=== PATIENT | male | born 1935 | race Caucasian/White ===

== ENCOUNTER 2021-04-26 14:35 | Inpatient (IN) | payer MEDICARE, OTHER, SELFPAY ==
[2021-04-26] VITALS (7 sets, daily range): BP systolic 129–176; BP diastolic 75–88; PULSE 55–68; RESP 16–18; TEMP 35.6–36.7; O2SAT 92–98; BMI 28.5
--- NOTE | 2021-04-26 14:54 | ECG_ITS ---
[facility] Test Date: 2021-04-26 Pat Name: Diogenes Mustafa Department: Room: Gender: Male Solutions Consultant: : [id number] Requested By: Familia Maxwell Order Number: [id number] Melchor MD: Kaitlin Zambrano M.D. Measurements Intervals [place] Rate: 57 P: 61 PA: 221 QRS: 14 QRSD: 168 T: 146 QT: 467 QTc: 456 Interpretive Statements SINUS BRADYCARDIA WITH FIRST DEGREE AV BLOCK LEFT BUNDLE BRANCH BLOCK [120+ ms QRS DURATION, 80+ ms Q/S IN V1/V2, 85+ ms R IN I/aVL/V5/V6] No previous ECG available for comparison Electronically Signed On 04-26-2021 19:15:25 CDT by Kaitlin Zambrano M.D. [id number]
--- NOTE | 2021-04-26 14:54 | CT_ITS ---
WS: [id number] CT HEAD TECHNIQUE: Noncontrast CT of the head obtained from the skullbase to the vertex. CLINICAL INFORMATION: Symptoms of Acute Stroke COMPARISON: None. DLP: 1082.[address] scans at [facility] use at least one of these dose optimization techniques: automated e xposure control; mA and/or kV adjustment per patient size (includes targeted exams where dose is matc hed to clinical indication); or iterative reconstruction. FINDINGS: No evidence of intracranial hemorrhage or mass effect. Ventricular system and basal cisterns are aponte nt. Mild small vessel changes with mild parenchymal volume loss. No extra-axial fluid collections. No evidence of mass or mass effect. 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 This can be followed up with MRI without and with g adolinium enhancement. This measures approximately 12 x 10 mm. Mild mucosal thickening in the paranas al sinuses. Mastoid air cells are well aerated. Sebaceous cysts right occipital scalp. Intracranial v ascular calcification. CT/CT head wo con* [id number] IMPRESSION: 1. No evidence of intracranial hemorrhage or mass effect. 2. Mild small vessel changes moderate parenchymal volume loss. 3. 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 Thi s can be followed up with MRI without and with gadolinium enhancement. This jessica sures approximately 12 x 10 mm 4. Mucosal thickening in the paranasal sinuses. 5. Otherwise no acute intracranial findings. Notified Familia Silveira DO at 04/26/2021 3:28 PM.
[2021-04-26 15:10] LABS: Basophils % 0.3 %; Eosinophils # 0.1 10^3/uL (0.0-0.8); Eosinophils % 0.9 %; Hematocrit 43.7 % (42.0-52.0); Hemoglobin 14.4 g/dL (11.7-16.6); Lymphocytes # 2.9 10^3/uL (0.8-4.8); Lymphocytes % 33.1 %; Mean Platelet Volume 10.9 fL (7.4-10.4); Monocytes # 0.3 10^3/uL (0.2-0.9); Monocytes % 3.9 %; Neutrophils # 5.42 10^3/uL (1.8-7.7); Neutrophils % 61.6 %; Nucleated Red Blood Cells % 0 %; Platelet Count 171 10^3/cmm (130-400); Red Blood Count 4.65 10^6/uL (4.1-5.3); Red Cell Distribution Width 13.1 % (12.1-15.1); White Blood Count 8.8 10^3/uL (4.0-10.0)
--- NOTE | 2021-04-26 15:15 | PC.PHAR ---
pt states he takes care of his own medications-pt states he stop taking metformin a long time ago states he didnt like the results from it ext med history shows last filled 07/15/20 90d/s
[2021-04-26 15:17] LABS: INR 0.98 (0.8-1.2)
[2021-04-26 15:18] LABS: Partial Thromboplastin Time 29.2 SECONDS (23.9-36.7)
[2021-04-26 15:27] LABS: Alanine Aminotransferase 9 U/L (0-41); Albumin Level 3.7 g/dL (3.5-5.2); Alkaline Phosphatase 81 IU/L (40-130); Anion Gap 14.5 (5-19); Aspartate Amino Transferase 15 U/L (0-40); Blood Urea Nitrogen 18 mg/dL (8-23); Calcium 9.2 mg/dL (8.5-10.5); Carbon Dioxide 24 mmol/L (22-29); Chloride 101 mmol/L (98-107); Globulin 3.6 g/dL (1.3-4.6); Glucose 188 mg/dL (65-115); Osmolality Calculated 287 mOsm/kg (285-295); Potassium 4.5 mmol/L (3.5-5.1); Sodium 135 mmol/L (136-145); Total Bilirubin 0.6 mg/dL (0.15-1.2); Total Protein 7.3 g/dL (6.6-8.7)
[2021-04-26] MEDS: promethazine 25 mg/mL SDV 1 mL IM (15:35)
--- NOTE | 2021-04-26 16:01 | ED_ITS ---
HPI - Neuro Symptoms/Deficit General: Chief Complaint: Neuro Symptoms/Deficit Stated Complaint: FREQUENT FALLS, DIZZINESS Time Seen by Provider: 04/26/21 14:36 History of Present Illness: HPI Narrative: 86-year-old male presents emergency room states of the last several years he had multiple falls today says increased weakness nausea. Had multiple falls over the last few years. Today has increased weakness with nausea dizziness whenever he moves his head or when he sits. He is also noticed some dark urine this past week. Is not had any flank pain no dysuria urgency or frequency denies fever sweats or chills. There is no focal neurologic deficits noted. Onset (ago): hour(s) Severity: moderate Quality: weak Relieving factors: none Exacerbating factors: none On Anticoagulants: No Associated symptoms: Deny chest pain, cough, diaphoresis, fevers/chills, headache(s), anorexia, malaise, nausea, seizures, short of breath, syncope, tingling, vertigo, vomiting or weakness Treatments Prior to Arrival: none Review of Systems Const: Denies: malaise or diaphoresis ENMT: Denies: throat pain, ear or mastoid pain, nasal discharge or nasal congestion Card: Denies: chest pain or syncope Resp: Denies: dyspnea, productive cough or non-productive cough GI: Denies: nausea or vomiting : Denies: flank pain, dysuria, urinary frequency or urinary urgency Skin/Breast: Denies: rash or pruritus Neuro: Denies: headache(s) or vertigo PFSH ED PFSH: Medical History BPH (benign prostatic hyperplasia) HTN (hypertension) Varicose veins of both lower extremities Surgical History History of left knee replacement Family History Other Hyperlipidemia Social History Alcohol intake: never Substance/Drug Use: never Housing: House NIH stroke score NIHSS: Level Of Consciousness - 1a: 0 Level Of Consciousness Questions - 1b: Both Correct Level Of Consciousness Commands - 1c: Both Correct Best Gaze - 2: Normal Visual Oneill - 3: No Visual Loss Facial Palsy - 4: Normal Motor Arm Right - 5: No Drift Motor Arm Left - 5: No Drift Motor Leg Right - 6: No Drift Motor Leg Left - 6: No Drift Limb Ataxia - 7: Absent Sensory - 8: Normal Best Language - 9: No Aphasia Dysarthia - 10: Normal Extinction And Inattention - 11: 0 Score: Total Score: 0 Physical Exam Const: COMMON NORMALS: no acute distress GENERAL APPEARANCE: cooperative and comfortable ORIENTATION/CONSCIOUSNESS: Yes awake, Yes oriented to person, Yes oriented to place and Yes oriented to time HENMT: COMMON NORMALS: normocephalic, atraumatic, hearing grossly normal bilaterally and external ears normal HEAD & SCALP: normocephalic and atraumatic EXTERNAL EAR: Yes external ears normal Neck/C-Spine: COMMON NORMALS: no JVD Resp: COMMON NORMALS: normal respiratory effort, No retractions, No use of accessory muscles and clear to auscultation bilaterally AUSCULTATION: clear to auscultation bilaterally Cardio: COMMON NORMALS: no JVD, regular rate, regular rhythm and No murmurs present (Cardio) RATE: regular rate RHYTHM: regular rhythm GI: COMMON NORMALS: Soft to palpation and No hepatosplenomegaly present AUSCULTATION: Yes normoactive bowel sounds PALPATION: Yes Soft to palpation, No Tenderness to palpation present (GI), No Guarding due to palpation present (GI) and Yes No hepatosplenomegaly present Extremity: COMMON NORMALS: normal to inspection, capillary refill normal, no clubbing, cyanosis or edema, no calf tenderness and no pedal edema Neuro: SENSORIUM/ORIENTATION: Yes oriented to person, Yes oriented to place and Yes oriented to time Skin: COMMON NORMALS: no rashes or lesions noted GENERAL SKIN EXAM: no rashes or lesions noted Course Vital Signs: Vital signs: Vital Signs Temperature 98.1 F 04/27/21 04:00 Pulse Rate 60 04/27/21 04:00 Respiratory Rate 20 H 04/27/21 04:00 Blood Pressure 119/57 04/27/21 04:00 Pulse Oximetry 91 04/27/21 04:00 MDM - Neuro Symptoms/Deficit MDM Narrative: Medical decision making narrative: Initially patient started feeling better we elected letting him go home but when he sat up he got profoundly dizzy again. Discussed with Dr. Ash. Consider doing a CTA of the head neck after discussion, he would rather wait and just get an MRI. There is an incidental finding of a meningioma but otherwise nothing acute he does have some painless hematuria we will plan to treat that as an outpatient with antibiotics and then follow-up with Dr. Green for further evaluation and order outpatient imaging however since he is staying we went ahead and got the CT here it shows a partially calcified obstruction of the right ureter consult with Dr. Green. He has been given Rocephin initially and his urine has been cultured as well. Dr. Ash plans to do an MRI, we discussed potential for vertebrobasilar artery stenosis. Lab Data: Labs: Lab Results 04/26/21 04/26/21 04/26/21 14:41 14:41 14:41 WBC 8.8 10^3/uL 10^3/ uL (4.0-10.0) RBC 4.65 10^6/uL 10^6 /uL (4.1-5.3) Hgb 14.4 g/dL g/dL (11.7-16.6) Hct 43.7 % % (42.0-52.0) MCV 94.0 fl fl (80-94) MCH 31.0 pg pg (28.0-34.0) MCHC 33.0 g/dL g/dL (30.0-36.0) RDW 13.1 % % (12.1-15.1) Plt Count 171 10^3/cmm 10^3 /cmm (130-400) MPV 10.9 fL H fL (7.4-10.4) Neut % (Auto) 61.6 % % Lymph % (Auto) 33.1 % % Mcduffie % (Auto) 3.9 % % Eos % (Auto) 0.9 % % Baso % (Auto) 0.3 % % Neut # (Auto) 5.42 10^3/uL 10^3 /uL (1.8-7.7) Lymph # (Auto) 2.9 10^3/uL 10^3/ uL (0.8-4.8) [place]duffie # (Auto) 0.3 10^3/uL 10^3/ uL (0.2-0.9) Eos # (Auto) 0.1 10^3/uL 10^3/ uL (0.0-0.8) Baso # (Auto) 0.0 10^3/uL 10^3/ uL (0.0-0.1) Nucleated RBC % (a uto) 0 % % Nucleated RBCs # 0.0 /100WBC /100W BC PT 13.20 SECONDS SEC ONDS (12.1-14.9) INR 0.98 (0.8-1.2) APTT 29.2 SECONDS SECO NDS (23.9-36.7) Sodium 135 mmol/L L mmol /L (136-145) Potassium 4.5 mmol/L mmol/L (3.5-5.1) Chloride 101 mmol/L mmol/L (98-107) Carbon Dioxide 24 mmol/L mmol/L (22-29) Anion Gap 14.5 (5-19) BUN 18 mg/dL mg/dL (8-23) Creatinine 1.0 mg/dL mg/dL (0.7-1.2) GFR Calculation Not Reportable Glucose 188 mg/dL H mg/dL (65-115) Calculated Osmolal ity 287 mOsm/kg mOsm/ kg (285-295) Calcium 9.2 mg/dL mg/dL (8.5-10.5) Total Bilirubin 0.6 mg/dL mg/dL (0.15-1.2) AST 15 U/L U/L (0-40) ALT 9 U/L U/L (0-41) Alkaline Phosphata se 81 IU/L IU/L (40-130) Creatine Kinase Total Protein 7.3 g/dL g/dL (6.6-8.7) Albumin 3.7 g/dL g/dL (3.5-5.2) Globulin 3.6 g/dL g/dL (1.3-4.6) Urine Color Urine Appearance Urine pH Ur Specific Gravit y Urine Protein Urine Glucose (UA) Urine Ketones Urine Blood Urine Nitrate Urine Bilirubin Urine Urobilinogen Ur Leukocyte Radha ase Urine RBC Urine WBC Ur Squamous Epith Cells Amorphous Sediment Urine Bacteria 04/26/21 04/26/21 14:41 16:17 WBC RBC Hgb Hct MCV MCH MCHC RDW Plt Count MPV Neut % (Auto) Lymph % (Auto) [place]duff[place] % (Auto) Eos % (Auto) Baso % (Auto) Neut # (Auto) Lymph # (Auto) Mcduffie # (Auto) Eos # (Auto) Baso # (Auto) Nucleated RBC % (a uto) Nucleated RBCs # PT INR APTT Sodium Potassium Chloride Carbon Dioxide Anion Gap BUN Creatinine GFR Calculation Glucose Calculated Osmolal ity Calcium Total Bilirubin AST ALT Alkaline Phosphata se Creatine Kinase 45 U/L U/L (39-308) Total Protein Albumin Globulin Urine Color Brown (Yellow) Urine Appearance Bloody A (CLEAR) Urine pH Not Reportable Ur Specific Gravit y Not Reportable Urine Protein Not Reportable Urine Glucose (UA) Not Reportable Urine Ketones Not Reportable Urine Blood Not Reportable Urine Nitrate Not Reportable Urine Bilirubin Not Reportable Urine Urobilinogen Not Reportable Ur Leukocyte Radha ase Not Reportable Urine RBC Too numerous to c nt /hpf H /hpf (0-2) Urine WBC 10-15 /hpf H /hpf (0-5) Ur Squamous Epith Cells None /hpf /hpf (0-5) Amorphous Sediment Not Reportable Urine Bacteria 1+ /hpf H /hpf (NONE) Discharge Plan Discharge Patient Disposition: Home Clinical Impression: Benign paroxysmal positional vertigo, Meningioma Condition: Stable Discharge Orders: Discharge ED (Routine); Ordered 04/26/21 Ordered By: Familia Silveira Coding Level of Care Code ED 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
[2021-04-26 16:26] LABS: Creatine Phosphokinase 45 U/L (39-308)
[2021-04-26 16:39] LABS: Urine Appearance Bloody (CLEAR)
--- NOTE | 2021-04-26 16:39 | PC.NURSE ---
ERP instructs this RN to ambulate pt. While assisting pt from a laying to a sitting position slowly, pt had increased dizziness. ERP made aware.
[2021-04-26 16:41] LABS: Add Urine Microscopic? YES; RBC Urine TOO NUMEROUS TO CNT /hpf (0-2); Urine Color Brown (Yellow)
[2021-04-26 16:42] LABS: Bacteria Urine 1+ /hpf
[2021-04-26 16:43] LABS: Add Urine Culture? Yes
[2021-04-26] MEDS: LORazepam 2 mg/mL INJ 1 mL 1 MG IVP (16:55)
--- NOTE | 2021-04-26 17:01 | CTR_ITS ---
PROCEDURE INFORMATION: Exam: CT Abdomen And Pelvis Without Contrast Exam date and time: 04/26/2021 5:01 PM Age: 86 years old Clinical indication: Other: Hematuria TECHNIQUE: Imaging protocol: Computed tomography of the abdomen and pelvis without contrast. Radiation optimization: All CT scans at this facility use at least one of these dose optimization techniques: automated exposure control; mA and/or kV adjustment per patient size (includes targeted exams where dose is matched to clinical indication); or iterative reconstruction. COMPARISON: No relevant prior studies available. RADIATION DOSE METRICS: Total DLP (mGy-cm): 2137.91 FINDINGS: Lungs: Emphysematous changes. Bibasilar atelectasis versus minimal infiltrate. Heart: Coronary artery atherosclerotic calcifications. Liver: Normal. No mass. Gallbladder and bile ducts: Cholelithiasis. Pancreas: Normal. No ductal dilation. Spleen: Normal. No splenomegaly. Adrenal glands: Left adrenal 11 mm low-density nodule likely reflecting a benign adenoma. Kidneys and ureters: Moderate right hydronephrosis and hydroureter of the proximal to mid ureter with a possible partially calcified calculus in the right mid ureter measuring 8.8 mm, best seen series 08/10/2011. A CT with contrast could further evaluate this. Stomach and bowel: Diverticulosis without diverticulitis. Appendix: No evidence of appendicitis. Intraperitoneal space: Unremarkable. No free air. No significant fluid collection. Vasculature: Unremarkable. No abdominal aortic aneurysm. Lymph nodes: Unremarkable. No enlarged lymph nodes. Urinary bladder: Urinary bladder wall thickening suggestive of a cystitis. Reproductive: Unremarkable as visualized. Bones/joints: Unremarkable. No acute fracture. Soft tissues: Unremarkable. CT/CT kidney stone [id number] IMPRESSION: 1. Moderate right hydronephrosis and hydroureter of the proximal to mid ureter with a possible partially calcified calculus in the right mid ureter measuring 8.8 mm, best seen series 08/10/2011. A CT with contrast could further evaluate this. 2. Urinary bladder wall thickening suggestive of a cystitis, please correlate clinically. 3. Diverticulosis without diverticulitis. 4. Coronary artery atherosclerotic calcifications. 5. Emphysematous changes. 6. Bibasilar atelectasis versus minimal infiltrate. 7. Cholelithiasis. 8. Left adrenal 11 mm low-density nodule likely reflecting a benign adenoma. COMMENTS: Consistent with the [employer]'s Incidental Findings Committee white paper (J Am Lea Radiol 2017): For any incidental adrenal lesion greater than 1 cm but less than 4 cm classified in this report as benign, likely benign, or containing fat (including classification as an adenoma or myelolipoma), no follow-up imaging is recommended per consensus recommendations based on imaging criteria. Further lab evaluation could be pursued if warranted based on clinical findings. Radiation Dose CTDIVOL = (mGy): DLP = 2137.91 (mGy-cm)
--- NOTE | 2021-04-26 17:19 | PM.HP ---
Providers/Chief Complaint Primary Care Provider: Manish Morejon DO Chief Complaint: FREQUENT FALLS, DIZZINESS History of Present Illness Diogenes Mustafa is a 86 year old male with no significant past medical history other than hypertension presented today with chief complaint of unstable gait. is at the bedside who is stating that for last 3 days Mr. Mustafa has been very unsteady on his feet especially when he changes his position(stand up from supine). No recent strokelike symptoms, fever shortness of breath or chest pain. Today he felt well standing up from supine position. That prompted his visit to the ER. In the ER he was diagnosed with vertigo, CT head showed meningioma, straight cath was done to obtain urine which revealed bloody urine, UA consistent with hematuria, patient is afebrile, bradycardia noted on telemetry, blood pressure stable, Family at the bedside, normal CBC and BMP, Dr. Green has been consulted, no active signs of sepsis Patient received 1 mg of Ativan which made him confused. At the time of my evaluation he was awake and alert oriented x3 GCS 15 no neurological deficits Asked nurse to place Ramos catheter Continue ceftriaxone 1 g daily, urine culture pending CT/CT kidney stone [id number] IMPRESSION: 1. Moderate right hydronephrosis and hydroureter of the proximal to mid ureter with a possible partially calcified calculus in the right mid ureter measuring 8.8 mm, best seen series 08/10/2011. A CT with contrast could further evaluate this. 2. Urinary bladder wall thickening suggestive of a cystitis, please correlate clinically. 3. Diverticulosis without diverticulitis. 4. Coronary artery atherosclerotic calcifications. 5. Emphysematous changes. 6. Bibasilar atelectasis versus minimal infiltrate. 7. Cholelithiasis. 8. Left adrenal 11 mm low-density nodule likely reflecting a benign adenoma. Review of Systems Const: Denies: fever(s) Eyes: Denies: change in vision ENMT: Denies: throat pain Card: Denies: chest pain Resp: Denies: dyspnea GI: Denies: abdominal pain : Denies: flank pain Musc: Denies: neck pain Skin/Breast: Denies: rash Neuro: Denies: headache(s) Psych: Denies: anxiety Endo: Denies: polyuria [place]/Lymph: Denies: easy bruising All/Imm: Denies: urticaria Medications/Allergies Home Medications Medication Instructions Recorded Confirmed Last Taken Type atorvastatin 10 mg PO BEDTIME 04/26/21 04/26/21 04/25/21 History ibuprofen 800 mg PO BEDTIME 04/26/21 04/26/21 04/25/21 History meclizine 25 mg PO QID PRN #20 tab 04/26/21 Unknown Rx metoprolol succinate 25 mg PO BEDTIME 04/26/21 04/26/21 04/25/21 History tamsulosin 0.4 mg PO BEDTIME 04/26/21 04/26/21 04/25/21 History Allergies Allergy/AdvReac Type Severity Reaction Status Date / Time No Known Allergies Allergy Unverified 04/26/21 15:15 PFSH Acute PFSH: Medical History BPH (benign prostatic hyperplasia) HTN (hypertension) Varicose veins of both lower extremities Surgical History History of left knee replacement Family History Other Hyperlipidemia Social History Alcohol intake: never Substance/Drug Use: never Housing: House Vitals/I&O/Wt Last Vital Signs Temp 98.1 F 04/26/21 14:37 Pulse 55 L 04/26/21 16:41 Resp 17 04/26/21 16:41 BP 154/78 04/26/21 16:41 Pulse Ox 93 04/26/21 16:41 Weight last 48 hrs Weight 92.986 kg Physical Exam Narrative: EXAM NARRATIVE: Elderly male who was laying comfortably in his bed saturating well on 1 L nasal cannula Does not use oxygen at home Bilateral breath sound without adventitious rhonchi or crackles S1, S2 sinus bradycardia heart rate 58 Abdomen soft Lower extremity no signs of venous stasis dermatitis, cellulitis Patient is complaining of left ankle pain however no active hyperemia or tenderness to palpation Awake alert oriented x3 GCS 15 EOMI, PERRLA No asterixis NIH 0 BPPV Data : 04/26/21 14:41 04/26/21 14:41 A&P Assessment and plan (1) Benign paroxysmal positional vertigo: Status: Acute (2) Meningioma: Status: Acute (3) Gross hematuria: Status: Acute (4) Hydronephrosis of right kidney: Status: Acute Additional A&P Information Gross hematuria Secondary to ureteral stone Has history of BPH 8.8 mm, hydronephrosis Normal creatinine Patient is not septic We will follow with urine cultures continue ceftriaxone Dr. Green consulted We will keep him n.p.o. overnight in case any intervention is required in the morning Ramos catheter placement Check CPK BPPV Most likely the cause of unsteady gait, check B12 and TSH Start meclizine will request vestibular rehab/physical therapy We will give him steroids as well Meningioma: No active neurological deficits We will request MRI, will need MRI screening as patient has left knee replacement history that was done in 1959 Full code Cardiac diet DVT prophylaxis SCDs, anticoagulation contraindicated Attestations Medical Necessity Statement*: Anticipating discharge within 48 hours Time Spent in Patient Care: Greater than 35 minutes Coding Level of Care Code 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
[2021-04-26] MEDS: cefTRIAXone 1,000 MG in sodium chloride 0.9% (plus) 50 ML 100 MG IV (17:33)
[2021-04-26 20:56] LABS: Glucose Point of Care 157 mg/dL (70-110)
[2021-04-26] MEDS: tamsulosin 0.4 mg Capsule PO (22:07)
[2021-04-26] MEDS: metoprolol succinate ER (24 HR) 25 mg Tablet PO (22:07)
[2021-04-26] MEDS: finasteride 5 mg Tablet PO (22:07)
[2021-04-26] MEDS: atorvastatin 40 mg Tablet 20 MG PO (22:07)
[2021-04-27] VITALS (8 sets, daily range): BP systolic 108–157; BP diastolic 57–79; PULSE 58–90; RESP 17–20; TEMP 36.4–37; O2SAT 85–98
[2021-04-27 05:07] LABS: Basophils % 0.1 %; Hematocrit 44.7 % (42.0-52.0); Hemoglobin 14.2 g/dL (11.7-16.6); Lymphocytes # 0.9 10^3/uL (0.8-4.8); Lymphocytes % 8.6 %; Mean Corpuscular HGB Conc 31.8 g/dL (30.0-36.0); Mean Corpuscular Hemoglobin 30.5 pg (28.0-34.0); Mean Corpuscular Volume 96.1 fl (80-94); Monocytes # 0.2 10^3/uL (0.2-0.9); Monocytes % 1.6 %; Neutrophils # 9.77 10^3/uL (1.8-7.7); Neutrophils % 89.5 %; Nucleated Red Blood Cells % 0 %; Platelet Count 146 10^3/cmm (130-400); Red Blood Count 4.65 10^6/uL (4.1-5.3); Red Cell Distribution Width 13.2 % (12.1-15.1); White Blood Count 10.9 10^3/uL (4.0-10.0)
[2021-04-27 05:41] LABS: Alanine Aminotransferase 9 U/L (0-41); Albumin Level 3.4 g/dL (3.5-5.2); Alkaline Phosphatase 77 IU/L (40-130); Aspartate Amino Transferase 19 U/L (0-40); Blood Urea Nitrogen 22 mg/dL (8-23); Calcium 9.2 mg/dL (8.5-10.5); Carbon Dioxide 25 mmol/L (22-29); Chloride 100 mmol/L (98-107); Globulin 3.6 g/dL (1.3-4.6); Glucose 203 mg/dL (65-115); Osmolality Calculated 289 mOsm/kg (285-295); Sodium 135 mmol/L (136-145); Total Bilirubin 0.7 mg/dL (0.15-1.2)
[2021-04-27 07:07] LABS: Glucose Point of Care 202 mg/dL (70-110)
[2021-04-27] MEDS: cefTRIAXone 1,000 MG in sodium chloride 0.9% (plus) 50 ML 100 MG IV (08:59)
--- NOTE | 2021-04-27 10:41 | PC.CHAP ---
Pastoral Care Encounter/Spiritual Assessment Type of Contact [] Declined linen room attendant visit [] Patient/Family/Request visit [] Outpatient visit [] Follow-up visit [] Physician referral [] Code/Alert [x] Routine visit [] Staff referral [] Actively dying [] Patient sleeping [] Family support [] [] Out of room [] Palliative care [] [] Receiving care in room [] Pre-surgical visit [] Trauma [] Long length of stay [] ICU visit [] Other: Relational/Emotional Strength [x] Patient feels connected with others/family/visitors/staff [] Distress [] Loneliness/isolation [] Abandonment Spirituality of Patient [x] Person of Natalie [x] Attends Oriental Orthodox of their Natalie [] Believes in Prayer [] Reads Bible or Jain materials [] There are Spiritual issues to be addressed Social Security Benefits Interviewer Interventions [] Prayer [x] Active listening [x] Non-anxious presence [x] Spiritual/emotional support [] Crisis/trauma care [] Spiritual counseling [] Bereavement support [] Provided bereavement packet [] Provided Bible/devotional materials [] Provided toy/stuffed animal, coloring book to patient or family member [] Provided Communion [] Anointing/[place] [] Salvation [x] Completed spiritual assessment [] Other: Impact on Illness or Injury [] Angry [] Fearful [] Anxious [] Often cries [] Exhaustion [] Unable to work [] Unable to attend jehovah's witness [] Unable to walk/stand [] Unable to read [] Unable to drive [] Unable to eat/drink [] Unable to sleep [] Unable to be with family [] Patient intubated [] Other: Summary Pt stated he is not feeling better since his arrival yesterday. Doctors still trying to determine what is wrong. was present in room. They have been 58 years. Have children and a grand child. One grand child is . Both seemed a little hesitant to talk with linen room attendant so linen room attendant did not press. Taoism natalie. Time spent with patient 5 m
[2021-04-27 12:01] LABS: Glucose Point of Care 232 mg/dL (70-110)
--- NOTE | 2021-04-27 14:07 | PM.PN ---
Subjective Subjective: Interval history: No overnight events, creatinine 1.3, afebrile, leukocytosis 10.9, Dr. Green planning for cystoscopy on Please let him eat today Urine bag with gross hematuria Hemoglobin stable at 14.2, hemodynamically stable, bradycardia noted, held metoprolol this morning Patient has history of left bundle branch block and bradycardia is endorsing that he has been experiencing gross hematuria for last 1 month and it was really the fall which happened yesterday which prompted his visit to the ER He will go for MRI head at 2:30 PM given 4 mg of IV morphine Vitals/I&O/Wt Last Vital Signs Temp 98.6 F 04/27/21 11:56 Pulse 58 L 04/27/21 11:56 Resp 17 04/27/21 11:56 BP 108/69 04/27/21 11:56 Pulse Ox 98 04/27/21 11:56 04/26/21 04/27/21 04/27/21 22:59 06:59 14:59 Intake Total 240 / 240 530 / 530 Output Total 375 / 375 Balance -135 / -135 530 / 530 Weight last 48 hrs Weight 92.986 kg Weight 92.986 kg Physical Exam Narrative: EXAM NARRATIVE: Patient was laying comfortably in his bed and awake alert oriented x3 No neurological deficits No active focal deficits noted on neurological exam EOMI, PERRLA S1, S2 bradycardia No murmur appreciated Abdomen soft Urine bag with gross hematuria Legs without edema Soft abdomen Urinary Catheter Management^: Ramos: Cath Placed During This Visit: yes Urinary Catheter Date of Insertion: 04/26/21 Urinary Catheter Time of Insertion: 21:00 Data : 04/27/21 05:00 04/27/21 05:00 Micro: Microbiology 04/26/21 16:17 Urine Culture - Preliminary Urine,Clean Catch A&P Assessment and plan (1) Gross hematuria: Status: Acute (2) Hydronephrosis of right kidney: Status: Acute (3) Benign paroxysmal positional vertigo: Status: Acute (4) Meningioma: Status: Acute (5) DANIEL (acute kidney injury): Status: Acute Additional A&P Information BPPV: Currently on meclizine, continue steroids, patient does endorse history of sinusitis before worsening of his symptoms, will follow up with PT evaluation Leukocytosis most likely secondary to steroid use no active signs of sepsis, he has been afebrile Gross hematuria with DANIEL with post renal obstruction with hydronephrosis, Dr. Green planning for cystoscopy on for gross hematuria evaluation, continue ceftriaxone, patient has been afebrile, Meningioma: We will follow up with MRI results today Acute hypoxic respiratory failure as per the respiratory therapist his O2 saturation was in low 80s on room air, at the time of evaluation he was saturating well on 2 L nasal cannula, he was awake and alert no signs of confusion, most likely this is related to hypoventilation, will request D-dimer and chest x-ray, in case of worsening of confusion will request ABG not indicated at this time Recurrent falls: I do suspect this is related to tamsulosin, which has been exacerbated with underlying sinusitis/bppv, B12 pending Full code Consistent carb diet DVT prophylaxis: SCDs Attestations Medical Necessity Statement*: Continue medical management Time Spent in Patient Care: 16 - 35 minutes Coding Level of Care Code Acute Cloth Cutter for Chg Fwd Diagnoses Gross hematuria R31.0 Hydronephrosis of right kidney N13.30 Benign paroxysmal positional vertigo H81.10 Meningioma D32.9 DANIEL (acute kidney injury) N17.9
[2021-04-27] MEDS: morphine 4 mg/mL SDV 1 mL IVP (14:14)
--- NOTE | 2021-04-27 14:20 | MR_ITS ---
WS: [id number] MRI HEAD WITH CONTRAST TECHNIQUE: Sagittal T1, T2 axial, T2 axial FLAIR, axial susceptibility weighted imaging, axial diffus ion weighted images, and coronal T2 images were obtained. Pre and post-T1 axial and post T1 coronal i mages. ADC and FSPGR images. CLINICAL INFORMATION: meningioma COMPARISON: CT head April 26, 2021 FINDINGS: No evidence of restricted diffusion to suggest acute ischemia. Ventricular system and basal cisterns are patent. Moderate small vessel changes with moderate parenchymal volume loss. Normal posterior fos sa. Normal vascular flow voids at the skull base. No extra-axial fluid collections. No evidence of ma ss or mass effect. Mild mucosal thickening in the ethmoid air cells. Mucosal thickening right mastoid air cells. Left mastoid air cells are well aerated. No hemosiderin on susceptibly weighted images. Enhancing well-circumscribed lesion along the anterior sella at the planum sphenoidale eccentric to t he right. This measures approximately 1.3 x 1.4 x 0.6 cm AP by transverse by craniocaudal. Slight con tact RIGHT aspect of the optic chiasm and prechiasmatic optic nerve with slight impingement. Recommen d correlation for right visual symptoms. Normal left optic chiasm and prechiasmatic optic nerve. Find ings most compatible with meningioma. Meningioma extends to the right cavernous sinus with partial en casement of the right cavernous carotid artery. Normal Meckel's cave. Normal intrasellar pituitary ti ssue. Incidental sebaceous cyst in the right occipital scalp. Incidental venous angioma left cerebellum. MR/MR head wo/w con [id number] IMPRESSION: 1. No evidence of restricted diffusion to suggest acute ischemia. 2. Enhancing meningioma along the anterior sella at the planum sphenoidale ecc entric to the right. Slight impingement on the right aspect of the optic chiasm and prechiasmatic optic nerve. Recommend Correlation for visual symptoms. 3. Meningioma measures approximately 1.3 x 1.4 x 0.6 cm AP by transverse by cr aniocaudal. This extends to involve the right cavernous sinus and slightly ext ends into the right aspect of the sella. Recommend correlation with pituitary f unction studies. 4. Meckel's cave is normal in appearance. 5. Moderate small vessel changes with moderate parenchymal volume loss. 6. No hemosiderin on susceptibly weighted images. 7. No other significant findings.
[2021-04-27 16:32] LABS: Glucose Point of Care 257 mg/dL (70-110)
[2021-04-27 19:05] LABS: Glucose Point of Care 277 mg/dL (70-110)
--- NOTE | 2021-04-27 19:19 | PC.NURSE ---
DR VISIT Dr Green in talking with pt and family
--- NOTE | 2021-04-27 19:31 | PM.CONSULT ---
Providers/Reason For Consult Consulting Physician/Specialty*: Urology/Green Reason for Consult*: Gross hematuria, right ureteral obstruction, ureteral mass Primary Care Provider: Manish Morejon DO History of Present Illness History of Present Illness Diogenes Mustafa is a 86 year old male who presented to the emergency department today with complaints of multiple falls and weakness. He also complained of dark urine and was found to have grossly bloody urine with no significant symptoms related to it such as UTI renal colic etc. A CT scan was performed without contrast that demonstrated moderate to severe right hydronephrosis down to close to the pelvic vessels where there appeared to be per my review a small amount of soft tissue density within the ureter possibly ureteral narrowing distal to that. There was mention of possible calcification but I could not clearly identify that on my review. I was consulted for further evaluation of that. Additional work-up showed a hemoglobin of 14, creatinine of 1.0, normal liver functions, urinalysis with numerous to count RBCs, 10-15 white cells. He is being admitted to the hospitalist service for evaluation of his falling symptoms. Review of Systems Const: Denies: fever(s) or chills Eyes: Denies: change in vision ENMT: Denies: hoarseness Card: Denies: chest pain or palpitations Resp: Denies: productive cough or wheezing GI: Denies: abdominal pain, nausea or vomiting : Reports: hematuria; Denies: flank pain Musc: Denies: joint redness Skin/Breast: Denies: rash Neuro: Reports: frequent falls; Denies: Slurred speech present Psych: Denies: anxiety or paranoia Endo: Denies: flushing [place]/Lymph: Denies: easy bruising or easy bleeding All/Imm: Denies: urticaria or acute wheezing Meds/Allergies Home Medications and Allergies Home Medications Medication Instructions Recorded Confirmed Last Taken Type atorvastatin 10 mg PO BEDTIME 04/26/21 04/26/21 04/25/21 History ibuprofen 800 mg PO BEDTIME 04/26/21 04/26/21 04/25/21 History meclizine 25 mg PO QID PRN #20 tab 04/26/21 Unknown Rx metoprolol succinate 25 mg PO BEDTIME 04/26/21 04/26/21 04/25/21 History tamsulosin 0.4 mg PO BEDTIME 04/26/21 04/26/21 04/25/21 History Allergies Allergy/AdvReac Type Severity Reaction Status Date / Time No Known Allergies Allergy Unverified 04/26/21 15:15 PFSH Acute PFSH: Medical History BPH (benign prostatic hyperplasia) HTN (hypertension) Varicose veins of both lower extremities Surgical History History of left knee replacement Family History Other Hyperlipidemia Social History Alcohol intake: never Substance/Drug Use: never Housing: House Vitals/I&O/Wt Last Vital Signs Temp 98.1 F 04/26/21 14:37 Pulse 55 L 04/26/21 17:34 Resp 18 04/26/21 17:34 BP 129/79 04/26/21 17:34 Pulse Ox 96 04/26/21 17:34 Weight last 48 hrs Weight 205 lb Physical Exam Const: COMMON NORMALS: no acute distress, alert and well nourished GENERAL APPEARANCE: well kempt and well developed ORIENTATION/CONSCIOUSNESS: not confused HENMT: COMMON NORMALS: normocephalic and atraumatic HEAD & SCALP: normocephalic and atraumatic Neck/C-Spine: COMMON NORMALS: full ROM Resp: COMMON NORMALS: normal respiratory effort EFFORT & INSPECTION: No labored and No Actively coughing Neuro: COMMON NORMALS: no focal motor deficits SENSORIUM/ORIENTATION: Yes alert Psych: COMMON NORMALS: mental status grossly normal APPEARANCE: Yes grossly normal and Yes well kempt ATTITUDE: Yes calm and Yes engaged Skin: COMMON NORMALS: no jaundice A&P Assessment and plan (1) Ureteral mass: Unclear exact etiology. CT scan seems to identify soft tissue possibly dystrophic calcification as an obstructing cause located at right mid ureteral location. Differential diagnosis includes radiolucent stone, ureteral mass, stricture. Status: Acute (2) Hydronephrosis of right kidney: Secondary to mid ureteral obstruction of unclear etiology. See above Status: Acute (3) Gross hematuria: Ongoing times approximately 1 month prior to admission. Status: Acute (4) Frequent falls: Work-up ongoing Status: Acute Consult Attestations Medical Necessity Statement: See attending Coding Level of Care Code Acute Digital Marketing Coordinator for Chg Fwd Diagnoses Ureteral mass N28.89 Hydronephrosis of right kidney N13.30 Gross hematuria R31.0 Frequent falls R29.6
--- NOTE | 2021-04-27 19:51 | XR_ITS ---
WS: [id number] Portable AP upright chest, 04/28/2021 Clinical Data: hypoxia Comparison: None. Findings: No nodules, masses or effusions are seen. Minimal bilateral basilar pleural thickening is s een. The heart is slightly enlarged. The pulmonary vascularity is not increased. No pneumonia or pneu mothorax is seen. The aortic arch and descending thoracic aorta show mild tortuosity. There is a dext roscoliosis. XR/XR chest 1V portable [id number] Impression: Cardiomegaly and atherosclerosis.
[2021-04-27] MEDS: atorvastatin 40 mg Tablet 20 MG PO (20:14)
--- NOTE | 2021-04-27 20:42 | PC.NURSE ---
i reported low temp 97.5 to nurse
[2021-04-27 21:13] LABS: D Dimer 0.53 ug/mIFEU (0-0.59)
[2021-04-27 21:27] LABS: Prolactin 13.35 ng/mL (4.0-15.2); Thyroid Stimulating Hormone 0.73 uIU/mL (0.27-4.20)
[2021-04-27 22:51] LABS: Cortisol Random 3.87 ug/dL (2.47-19.5)
[2021-04-28] VITALS (8 sets, daily range): BP systolic 135–159; BP diastolic 60–89; PULSE 54–64; RESP 17–20; TEMP 36.4–36.9; O2SAT 90–95
--- NOTE | 2021-04-28 04:54 | PC.NURSE ---
SHIFT SUMMARY Has rested very well tonight. Confusion noted but has been cooperative and has not tried to get OOB. Is oriented to person and knows he is in [place] but told me once he thought he was at 's restaurant. Reorients easily but then forgets again. Ramos is draining well with hematuria present. No clots noted. Plan is for Dr Green to do procedure in OR on . IV patent and infusing at 50ml/hr rate.
[2021-04-28 06:12] LABS: Basophils % 0.1 %; Hematocrit 44.1 % (42.0-52.0); Hemoglobin 14.1 g/dL (11.7-16.6); Lymphocytes # 1.2 10^3/uL (0.8-4.8); Lymphocytes % 8.7 %; Mean Corpuscular Hemoglobin 31.1 pg (28.0-34.0); Mean Corpuscular Volume 97.1 fl (80-94); Mean Platelet Volume 10.5 fL (7.4-10.4); Monocytes # 0.4 10^3/uL (0.2-0.9); Monocytes % 2.6 %; Neutrophils # 12.51 10^3/uL (1.8-7.7); Nucleated Red Blood Cells % 0 %; Platelet Count 162 10^3/cmm (130-400); Red Blood Count 4.54 10^6/uL (4.1-5.3); Red Cell Distribution Width 13.1 % (12.1-15.1); White Blood Count 14.2 10^3/uL (4.0-10.0)
[2021-04-28 06:29] LABS: Anion Gap 15.7 (5-19); Blood Urea Nitrogen 33 mg/dL (8-23); Calcium 8.9 mg/dL (8.5-10.5); Carbon Dioxide 25 mmol/L (22-29); Chloride 99 mmol/L (98-107); Glucose 248 mg/dL (65-115); Osmolality Calculated 296 mOsm/kg (285-295); Potassium 4.7 mmol/L (3.5-5.1); Sodium 135 mmol/L (136-145)
[2021-04-28 07:11] LABS: Glucose Point of Care 231 mg/dL (70-110)
[2021-04-28 08:38] LABS: Vitamin B12 249 pg/mL (232-1245)
[2021-04-28] MEDS: cefTRIAXone 1,000 MG in sodium chloride 0.9% (plus) 50 ML 100 MG IV (08:52)
[2021-04-28] MEDS: sennosides-docusate Tablet 1 TAB PO (08:53)
--- NOTE | 2021-04-28 17:21 | PM.PN ---
Subjective Subjective: Interval history: Plan for cystoscopy tomorrow, n.p.o. after midnight, did discuss results of MRI of head with the patient and the family He is on room air now Urine bag still has gross hematuria Tamsulosin discontinued Patient was orthostatic yesterday when worked with physical therapist Vitals/I&O/Wt Last Vital Signs Temp 98.4 F 04/28/21 16:00 Pulse 62 04/28/21 16:00 Resp 19 H 04/28/21 16:00 BP 153/89 04/28/21 16:00 Pulse Ox 91 04/28/21 16:00 04/28/21 04/28/21 04/28/21 06:59 14:59 22:59 Intake Total 150 / 1160 350 / 350 Output Total 450 / 1150 Balance -300 / 10 350 / 350 Weight last 48 hrs Weight 92.986 kg Physical Exam Narrative: EXAM NARRATIVE: Patient laying comfortably in his bed vision changes intermittently especially when he goes downstairs, left eye floaters S1, S2 Abdomen soft Non focal neuro exam Abdomen soft Gross hematuria Patient is awake alert oriented x3 GCS 15 Saturating well on room air Urinary Catheter Management^: Ramos: Cath Placed During This Visit: yes Reason for Continuing Indwelling Catheter: Acute Urinary Retention or Obstruction Urinary Catheter Date of Insertion: 04/26/21 Urinary Catheter Time of Insertion: 21:00 Data : 04/28/21 05:33 04/28/21 05:33 Micro: Microbiology 04/26/21 16:17 Urine Culture - Final Urine,Clean Catch A&P Assessment and plan (1) DANIEL (acute kidney injury): Status: Acute (2) Gross hematuria: Status: Acute (3) Hydronephrosis of right kidney: Status: Acute (4) Ureteral mass: Status: Acute (5) Benign paroxysmal positional vertigo: Status: Acute (6) Meningioma: Status: Acute (7) Frequent falls: Status: Acute Additional A&P Information Plan for cystoscopy tomorrow anticoagulation on hold Hemodynamically stable, Persistent gross hematuria MRI findings discussed with the patient and the family outpatient follow-up with neurology hemodynamically stable, normal TSH, I do not suspect recurrent falls related to meningioma Discontinue tamsulosin because of orthostatic hypotension Attestations Medical Necessity Statement*: Continue medical management Time Spent in Patient Care: less than 15 minutes Coding Level of Care Code Acute Global Mobility Specialist for Chg Fwd Diagnoses DANIEL (acute kidney injury) N17.9 Gross hematuria R31.0 Hydronephrosis of right kidney N13.30 Ureteral mass N28.89 Benign paroxysmal positional vertigo H81.10 Meningioma D32.9 Frequent falls R29.6
--- NOTE | 2021-04-28 18:13 | P.PN_ITS ---
Subjective Subjective: Interval history: He thinks he is feeling little bit better today. Still with hematuria. Following believed to be more related now to orthostasis. Alpha-jair stopped. Denies any fever chills chest pain shortness of breath etc. Family in the room. I reviewed with them the findings again and the expectations outlined last night. We will plan for Cystoscopy, RIGHT retrograde, ureteroscopy, possible biopsy/stent tomorrow afternoon when time available in the operating room Questions answered. Informed consent was obtained. Vitals/I&O/Wt Last Vital Signs Temp 98.4 F 04/28/21 16:00 Pulse 62 04/28/21 16:00 Resp 19 H 04/28/21 16:00 BP 153/89 04/28/21 16:00 Pulse Ox 91 04/28/21 16:00 04/28/21 04/28/21 04/28/21 06:59 14:59 22:59 Intake Total 150 / 1160 350 / 350 Output Total 450 / 1150 Balance -300 / 10 350 / 350 Weight last 48 hrs Weight 205 lb Physical Exam Narrative: EXAM NARRATIVE: Alert oriented no acute distress. Has shaved since yesterday. No labored respiration. No audible wheezing. Abdomen is soft nontender. Moves all extremities. No obvious focal defects. Urinary Catheter Management^: Ramos: Cath Placed During This Visit: yes Reason for Continuing Indwelling Catheter: Accurate Measurement of Urinary Output in Critically Ill Patients Urinary Catheter Date of Insertion: 04/26/21 Urinary Catheter Time of Insertion: 21:00 Data : 04/28/21 05:33 04/28/21 05:33 Micro: Microbiology 04/26/21 16:17 Urine Culture - Final Urine,Clean Catch A&P Assessment and plan (1) Ureteral mass: To the operating room tomorrow afternoon for further investigation with retrograde pyelogram ureteroscopy possible biopsy etc. Status: Acute (2) Hydronephrosis of right kidney: Secondary to mid ureteral obstruction of unclear etiology. See above Status: Acute (3) Gross hematuria: Ongoing times approximately 1 month prior to admission. Persistent today. Status: Acute (4) Frequent falls: Work-up ongoing with current thought pain possible orthostatic hypotension Status: Acute Attestations Medical Necessity Statement*: Surgery tomorrow. See attending Coding Level of Care Code Acute Pressure Sealer And Tester for Sofiya Gary Diagnoses Ureteral mass N28.89 Hydronephrosis of right kidney N13.30 Gross hematuria R31.0 Frequent falls R29.6
[2021-04-28] MEDS: amlodipine 10 mg Tablet PO (18:16)
[2021-04-28] MEDS: atorvastatin 40 mg Tablet 20 MG PO (20:09)
[2021-04-28 20:28] LABS: Glucose Point of Care 248 mg/dL (70-110)
[2021-04-29] VITALS (14 sets, daily range): BP systolic 128–154; BP diastolic 64–86; PULSE 57–64; RESP 14–18; TEMP 36–37.2; O2SAT 90–99
--- NOTE | 2021-04-29 | SCC_ITS ---
Procedure Done: 1. Cystoscopy, right retrograde ureteropyelogram 2. RIGHT ureteroscopy with biopsy, no stent 43.1 seconds of fluoroscopic guidance, for a cumulative dose of 14.04 mGy, was provided to Dr. Green by the radiology department. C-arm images of the abdomen were saved for the patient's permanent record. [facility]
[2021-04-29 05:49] LABS: Basophils % 0.1 %; Eosinophils % 0.1 %; Hematocrit 43.1 % (42.0-52.0); Hemoglobin 14.1 g/dL (11.7-16.6); Lymphocytes # 2.6 10^3/uL (0.8-4.8); Lymphocytes % 18.3 %; Mean Corpuscular HGB Conc 32.7 g/dL (30.0-36.0); Mean Corpuscular Hemoglobin 31.7 pg (28.0-34.0); Mean Corpuscular Volume 96.9 fl (80-94); Mean Platelet Volume 10.7 fL (7.4-10.4); Monocytes # 0.7 10^3/uL (0.2-0.9); Monocytes % 4.9 %; Neutrophils # 10.82 10^3/uL (1.8-7.7); Neutrophils % 75.8 %; Nucleated Red Blood Cells % 0 %; Platelet Count 149 10^3/cmm (130-400); Red Blood Count 4.45 10^6/uL (4.1-5.3); Red Cell Distribution Width 13.1 % (12.1-15.1); White Blood Count 14.3 10^3/uL (4.0-10.0)
[2021-04-29 07:07] LABS: Blood Urea Nitrogen 34 mg/dL (8-23); Calcium 9.1 mg/dL (8.5-10.5); Carbon Dioxide 27 mmol/L (22-29); Chloride 99 mmol/L (98-107); Glucose 185 mg/dL (65-115); Osmolality Calculated 290 mOsm/kg (285-295); Sodium 134 mmol/L (136-145)
[2021-04-29 07:09] LABS: Anion Gap 12.2 (5-19); Potassium 4.2 mmol/L (3.5-5.1)
--- NOTE | 2021-04-29 09:12 | PM.PN ---
Subjective Subjective: Interval history: Plan for cystoscopy today, discussed with the patient regarding meningioma work-up, Dr. Mcginnis recommended following up with [facility] Dr. Edwar Agustin [phone] Mr. Mustafa is stating that he would like to discuss with his family He will need further evaluation of meningioma to rule out anaplastic high-grade subtype, he might need surgical intervention considering involvement of optic tract Vitals/I&O/Wt Last Vital Signs Temp 98.1 F 04/29/21 04:00 Pulse 57 L 04/29/21 08:12 Resp 18 04/29/21 08:12 BP 151/64 04/29/21 04:00 Pulse Ox 93 04/29/21 08:12 04/28/21 04/29/21 04/29/21 22:59 06:59 14:59 Output Total 960 / 960 Balance -960 / -610 Physical Exam Narrative: EXAM NARRATIVE: Patient was resting comfortably in his bed Saturating well on room air S1, S2 Abdomen soft Gross hematuria No focal deficit Lower extremities without edema Urinary Catheter Management^: Ramos: Cath Placed During This Visit: yes Reason for Continuing Indwelling Catheter: Acute Urinary Retention or Obstruction Urinary Catheter Date of Insertion: 04/26/21 Urinary Catheter Time of Insertion: 21:00 Data : 04/29/21 05:28 04/29/21 05:28 Micro: Microbiology 04/26/21 16:17 Urine Culture - Final Urine,Clean Catch A&P Assessment and plan (1) Frequent falls: Status: Acute (2) DANIEL (acute kidney injury): Status: Acute (3) Gross hematuria: Status: Acute (4) Meningioma: Status: Acute (5) Benign paroxysmal positional vertigo: Status: Acute (6) Ureteral mass: Status: Acute (7) Hydronephrosis of right kidney: Status: Acute Additional A&P Information Plan for cystoscopy today around 3:00 N.p.o. 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 Edwar Agustin at [facility] who does deal with meningioma Patient would like to discuss with his family Frequent falls secondary to orthostasis, discontinued tamsulosin Do not have typical nystagmus of vertigo, discontinued steroids Meclizine PT evaluation after cystoscopy DANIEL: Creatinine normalized Resolved Full code Start diet after the procedure DVT prophylaxis contraindicated SCDs Attestations Medical Necessity Statement*: Continue medical management Time Spent in Patient Care: less than 15 minutes Coding Level of Care Code Acute Diesel Mechanic Apprentice for Chg Fwd Diagnoses Frequent falls R29.6 DANIEL (acute kidney injury) N17.9 Gross hematuria R31.0 Meningioma D32.9 Benign paroxysmal positional vertigo H81.10 Ureteral mass N28.89 Hydronephrosis of right kidney N13.30
[2021-04-29] MEDS: cefTRIAXone 1,000 MG in sodium chloride 0.9% (plus) 50 ML 100 MG IV ×2 (09:14→17:35)
[2021-04-29] MEDS: sennosides-docusate Tablet 1 TAB PO (09:15)
[2021-04-29] MEDS: amlodipine 10 mg Tablet PO (09:15)
--- NOTE | 2021-04-29 13:38 | DCPLANNER ---
manager of manufacturing had message to schedule an outpatient MRI for patient. Patient had been admitted to hospital and had the MRI completed as in patient.
--- NOTE | 2021-04-29 16:20 | ANES.PREANE2 ---
Pre-Anesthetic Assessment Pre-Anesthetic Assessment: Height/Weight: Height 1.8 m Weight 92.986 kg Temp Pulse Resp BP Pulse Ox 98.9 F 64 18 139/76 94 04/29/21 16:14 04/29/21 16:14 04/29/21 16:14 04/29/21 16:14 04/29/21 16:14 Proposed Procedure: Operation Date: 04/29/21 14:55 Proposed Procedures s Ureteroscopy(Right) - Tonio Green MD p Cystoscopy(Not Applicable) - Tonio Green MD s Retrograde Pyelogram(Right) - Tonio Green MD s Possible Ureteral Stent Placement(Right) - Tonio Green MD Was Beta Michelle taken within 24 hours: Yes Was Clonidine taken within 24 hours: N/A Last intake: Intake Last Liquid Date 04/29/21 Last Liquid Time 09:00 Last Solid Date 04/28/21 Last Solid Time 23:59 Social: Social History: No alcohol and No tobacco Exam: Pre-Anes Outpt Exam: alert, oriented x 3, clear to auscultation bilaterally and regular rate & rhythm Airway: Submandibular: WNL Cervical ROM: WNL MP: 2 Dentition: Chipped and False CV/HEM: CV/HEM: HTN : : Chronic renal Insufficiency Metabolic: Metabolic: Hyperlipidemia and Morbid obesity Anesthetic Plan: ASA status: 3 Anesthesia: General Risk of > 500 ml blood loss (7ml/kg in children): No Meds/Allergies Current Medications: Current Medications Generic Name Dose Route Start Last Admin Trade Name Freq PRN Reason Stop Dose Admin Amlodipine Besylat e 10 mg 04/28/21 18:00 04/29/21 09:15 Amlodipine 10 Mg Tablet PO 10 mg DAILY KD Administration Atorvastatin Calci um 20 mg 04/26/21 21:00 04/28/21 20:09 Atorvastatin 40 Mg Tablet PO 20 mg BEDTIME KD Administration Finasteride 5 mg 04/26/21 21:00 04/26/21 22:07 Finasteride 5 Mg Tablet PO 5 mg BEDTIME KD Administration Ceftriaxone Sodium 1,000 mg/ 50 mls @ 100 mls/ hr 04/27/21 09:00 04/29/21 10:36 Sodium Chloride IV Infused DAILY KD Infusion Protocol Metoprolol Succina te 25 mg 04/26/21 21:00 04/26/21 22:07 Metoprolol Succi dean Er (24 Hr) 25 Mg Tablet PO 25 mg BEDTIME KD Administration Morphine Sulfate 4 mg 04/27/21 14:05 04/27/21 14:14 Morphine 4 Mg/Ml Sdv 1 Ml IVP 4 mg ONCE PRN Administration MRI Senna/Docusate Sod ium 1 tab 04/28/21 09:00 04/29/21 09:15 Sennosides-Docus ate Tablet PO 1 tab DAILY KD Administration Tamsulosin HCl 0.4 mg 04/26/21 21:00 04/26/21 22:07 Tamsulosin 0.4 M g Capsule PO 0.4 mg BEDTIME KD Administration PFSH Anesthesia PFSH: Medical History BPH (benign prostatic hyperplasia) HTN (hypertension) Varicose veins of both lower extremities Surgical History History of left knee replacement Family History Other Hyperlipidemia Social History Alcohol intake: never Substance/Drug Use: never Housing: House Data Anesthesia CBC & Chem 7: 04/29/21 05:28 04/29/21 05:28 Other Labs: Laboratory Results - last 48 hr 04/27/21 04/27/21 04/27/21 16:21 18:52 20:32 WBC RBC Hgb Hct MCV MCH MCHC RDW Plt Count MPV Neut % (Auto) Lymph % (Auto) [place] % (Auto) Eos % (Auto) Baso % (Auto) Neut # (Auto) Lymph # (Auto) [place] # (Auto) Eos # (Auto) Baso # (Auto) Nucleated RBC % (auto) Nucleated RBCs # D-Dimer Sodium Potassium Chloride Carbon Dioxide Anion Gap BUN Creatinine GFR Calculation Glucose POC Glucose 257 H 277 H Calculated Osmolality Calcium Vitamin B12 TSH 0.73 Prolactin 13.35 Random Cortisol 3.87 04/27/21 04/28/21 04/28/21 20:32 05:33 05:33 WBC 14.2 H RBC 4.54 Hgb 14.1 Hct 44.1 MCV 97.1 H MCH 31.1 MCHC 32.0 RDW 13.1 Plt Count 162 MPV 10.5 H Neut % (Auto) 88.0 Lymph % (Auto) 8.7 [place] % (Auto) 2.6 Eos % (Auto) 0.0 Baso % (Auto) 0.1 Neut # (Auto) 12.51 H Lymph # (Auto) 1.2 [place] # (Auto) 0.4 Eos # (Auto) 0.0 Baso # (Auto) 0.0 Nucleated RBC % (auto) 0 Nucleated RBCs # 0.0 D-Dimer 0.53 Sodium 135 L Potassium 4.7 Chloride 99 Carbon Dioxide 25 Anion Gap 15.7 BUN 33 H Creatinine 1.2 GFR Calculation Not Reportable Glucose 248 H POC Glucose Calculated Osmolality 296 H Calcium 8.9 Vitamin B12 TSH Prolactin Random Cortisol 04/28/21 04/28/21 04/28/21 05:33 06:32 19:31 WBC RBC Hgb Hct MCV MCH MCHC RDW Plt Count MPV Neut % (Auto) Lymph % (Auto) [place] % (Auto) Eos % (Auto) Baso % (Auto) Neut # (Auto) Lymph # (Auto) [place] # (Auto) Eos # (Auto) Baso # (Auto) Nucleated RBC % (auto) Nucleated RBCs # D-Dimer Sodium Potassium Chloride Carbon Dioxide Anion Gap BUN Creatinine GFR Calculation Glucose POC Glucose 231 H 248 H Calculated Osmolality Calcium Vitamin B12 249 TSH Prolactin Random Cortisol 04/29/21 04/29/21 05:28 05:28 WBC 14.3 H RBC 4.45 Hgb 14.1 Hct 43.1 MCV 96.9 H MCH 31.7 MCHC 32.7 RDW 13.1 Plt Count 149 MPV 10.7 H Neut % (Auto) 75.8 Lymph % (Auto) 18.3 [place] % (Auto) 4.9 Eos % (Auto) 0.1 Baso % (Auto) 0.1 Neut # (Auto) 10.82 H Lymph # (Auto) 2.6 [place] # (Auto) 0.7 Eos # (Auto) 0.0 Baso # (Auto) 0.0 Nucleated RBC % (auto) 0 Nucleated RBCs # 0.0 D-Dimer Sodium 134 L Potassium 4.2 Chloride 99 Carbon Dioxide 27 Anion Gap 12.2 BUN 34 H Creatinine 1.0 GFR Calculation Not Reportable Glucose 185 H POC Glucose Calculated Osmolality 290 Calcium 9.1 Vitamin B12 TSH Prolactin Random Cortisol Cardiac Studies: No Data to Display
--- NOTE | 2021-04-29 16:56 | PM.MISC ---
Miscellaneous Note Purpose of Documentation: To the OR today for cystoscopy right retrograde ureteropyelogram ureteroscopy stent No significant change overnight
[2021-04-29] MEDS: sodium chloride 0.9% 1,000 ML 30 ML IV (17:10)
--- NOTE | 2021-04-29 17:16 | SC_ITS ---
WS: [id number] C-arm fluoroscopy for right ureterogram, 04/29/2021 Clinical Data: ureteral calculi Comparison: CT abdomen and pelvis, 04/26/2021 Findings: Dr. Green performed the right ureterogram and there is a intraureteral mass in the mid ureter. SC/C-arm FL for Urology Impression: Right ureterogram.
--- NOTE | 2021-04-29 18:22 | PM.OP ---
Operative Report Date of procedure: April 29, 2021 Pre-op Diagnosis: Right ureteral obstruction with evidence of mass Post-op Diagnosis: Right ureteral obstruction with evidence of mass Procedure Done: 1. Cystoscopy, right retrograde ureteropyelogram 2. RIGHT ureteroscopy with biopsy, no stent Pathology: Papillary tumor specimen right mid ureter Surgeon: Norma Anesthesia: General Urine output: Not measured Complications: None Findings: Large papillary filling defect occupying about 3 inches of the mid ureter may be more. 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 Sampling obtained. Condition: stable Disposition: PACU Brief History: Mr. Mustafa is a very pleasant reasonably well-preserved 86-year-old white male who presented with dizziness and falling to the emergency department recently and was found to have gross hematuria. He reported that that has been ongoing for about at least [address] scan demonstrated right hydronephrosis with what appeared to be a soft tissue density in the mid ureter. Possibly some dystrophic calcification but no clear evidence of a stone. Work-up for falling revealed a meningioma that is being currently evaluated but did not appear to be a critical issue. He was deemed safe for anesthesia to pursue because of gross hematuria and right ureteral obstruction/ureteral mass. Procedure: After routine preoperative evaluation examination and obtaining of informed consent he was taken to the operating suite on 04/29/2021 where general anesthesia was administered without difficulty after appropriate timeout was performed, SCDs confirmed to be functioning, preoperative antibiotics administered, beta-jair protocol confirmed. Prepped and draped in the usual sterile fashion in dorsolithotomy position paying careful attention to avoiding pressure points. 21 Georgian cystoscope with 30 degree lens was introduced into the urethra meatus and into the bladder without difficulty. Prostate was mildly enlarged. There was some mild urethral trauma from the indwelling Ramos catheter had been placed admission but no bladder masses or neoplastic process. There was some bloody efflux from the right ureteral orifice. An 8 Georgian cone-tip catheter was intubated to the right ureteral orifice for right retrograde ureteropyelogram demonstrating: The distal ureter appeared to be somewhat dilated with possible narrowing of the last centimeter or 2 of the ureter. No obvious filling defect was seen. There was a goblet sign in the mid ureter with a papillary lesion filling a good portion of the mid ureter measuring about 3 inches in length may be more. The ureter proximal to that as expected was dilated. A flexible tip guidewire was then advanced up the right ureter and the distal ureter was then dilated with a 15 Georgian 4 cm balloon. The wire was secured to the drapes as a safety wire and a 7.5 Georgian offset semirigid ureteroscope was advanced up the right ureter and in the expected area a papillary lesion was encountered. 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 There was minimal amount of bleeding. Samples were obtained with a stone basket and some grasping forceps and sent for pathologic evaluation. The images were clearly consistent with TCCA on both retrograde and endoscopic. Final inspection revealed no severe bleeding. The scope was removed. The bladder was drained. Specimens were sent for pathologic evaluation the procedure was completed. A 22 Georgian catheter was placed with plans for irrigation as needed if he had more bleeding but anticipate he should have to have the catheter removed in the morning and be discharged tomorrow PLANS: 1. We will send a consult for evaluation for possible minimally invasive right nephro ureterectomy if. The patient after being counseled on the likelihood that this would be TCCA was leaning in that direction. The ongoing work-up for his brain lesion is still pending which may affect the pace of evaluation and treatment of the ureteral lesion. 2. Anticipate discharge tomorrow
--- NOTE | 2021-04-29 18:36 | PC.NURSE ---
1831 Gave report to Raghu CUBA on med/surg. patient alert, stable no pain.
--- NOTE | 2021-04-29 19:17 | ANE.PACU2 ---
Inpatient post-anesthesia follow up: Airway intact: Yes Vital signs: Temperature 97.4 F Pulse Rate [Monito r] 59 Pulse Rate 61 Respiratory Rate 16 Blood Pressure [Ri ght Arm] 176/88 Blood Pressure 146/80 Pulse Oximetry 95 Oxygen Delivery Me thod Room Air Oxygen Flow Rate 4 Fraction of Inspir ed Oxygen Hydration adequate: Yes Nausea and vomiting: No Pain level: 2 Mental status: Baseline
[2021-04-29] MEDS: finasteride 5 mg Tablet PO (20:29)
[2021-04-29] MEDS: acetaminophen 500 mg Tablet PO (20:29)
[2021-04-29] MEDS: metoprolol succinate ER (24 HR) 25 mg Tablet PO (20:29)
[2021-04-29] MEDS: atorvastatin 40 mg Tablet 20 MG PO (20:29)
[2021-04-30] VITALS: BP 152/72; PULSE 69; RESP 19; TEMP 37.1; O2SAT 92
[2021-04-30 02:00] VITALS: BP 126/63; PULSE 65; RESP 20; TEMP 37.1; O2SAT 90
[2021-04-30] MEDS: acetaminophen 500 mg Tablet PO (02:24)
[2021-04-30 05:03] LABS: Basophils % 0.2 %; Eosinophils # 0.2 10^3/uL (0.0-0.8); Eosinophils % 1.8 %; Hematocrit 42.1 % (42.0-52.0); Hemoglobin 13.8 g/dL (11.7-16.6); Lymphocytes # 2.1 10^3/uL (0.8-4.8); Lymphocytes % 24.4 %; Mean Corpuscular HGB Conc 32.8 g/dL (30.0-36.0); Mean Corpuscular Hemoglobin 31.3 pg (28.0-34.0); Mean Corpuscular Volume 95.5 fl (80-94); Mean Platelet Volume 10.5 fL (7.4-10.4); Monocytes # 0.6 10^3/uL (0.2-0.9); Monocytes % 7.5 %; Neutrophils % 65.7 %; Nucleated Red Blood Cells % 0 %; Platelet Count 163 10^3/cmm (130-400); Red Blood Count 4.41 10^6/uL (4.1-5.3); White Blood Count 8.5 10^3/uL (4.0-10.0)
[2021-04-30 05:36] LABS: Anion Gap 11.5 (5-19); Blood Urea Nitrogen 36 mg/dL (8-23); Calcium 8.8 mg/dL (8.5-10.5); Carbon Dioxide 28 mmol/L (22-29); Chloride 98 mmol/L (98-107); Glucose 205 mg/dL (65-115); Osmolality Calculated 290 mOsm/kg (285-295); Potassium 4.5 mmol/L (3.5-5.1); Sodium 133 mmol/L (136-145)
[2021-04-30 05:53] VITALS: BP 130/71; PULSE 59; RESP 18; TEMP 36.9; O2SAT 93
[2021-04-30 07:09] VITALS: BP 123/65; PULSE 62; RESP 16; TEMP 36.8; O2SAT 90
--- NOTE | 2021-04-30 07:49 | P.PN_ITS ---
Subjective Subjective: Interval history: Urology follow-up, postop day #1 Overall doing well. Denies any chest pain or shortness of breath. No renal colicky type symptoms. Catheter still draining but still bloody as expected. Reviewed with Dr. Ash, who is concerned about some visual changes. From a urologic perspective: 1. Remove catheter 2. Can discharge when safe in relationship to his other medical concerns. 3. I will make arrangements for consultation for consideration of robotic nephro ureterectomy once the other issues are sorted through. I reviewed all the above with the patient; he is okay with that progress. Vitals/I&O/Wt Last Vital Signs Temp 98.2 F 04/30/21 07:09 Pulse 62 04/30/21 07:09 Resp 16 04/30/21 07:09 BP 123/65 04/30/21 07:09 Pulse Ox 90 04/30/21 07:09 04/29/21 04/30/21 04/30/21 22:59 06:59 14:59 Intake Total 255 / 305 300 / 605 Output Total 105 / 105 750 / 855 Balance 150 / 200 -450 / -250 Physical Exam Const: COMMON NORMALS: no acute distress, alert and well nourished GENERAL APPEARANCE: well kempt and well developed ORIENTATION/CONSCIOUSNESS: not confused HENMT: COMMON NORMALS: normocephalic and atraumatic HEAD & SCALP: normocephalic and atraumatic Resp: COMMON NORMALS: normal respiratory effort EFFORT & INSPECTION: No labored and No Actively coughing : OTHER: Catheter in place. Still draining bloody urine. No clots Extremity: COMMON NORMALS: no clubbing, cyanosis or edema Neuro: SENSORIUM/ORIENTATION: Yes alert Psych: COMMON NORMALS: mental status grossly normal APPEARANCE: Yes grossly normal and Yes well kempt ATTITUDE: Yes calm and Yes engaged Skin: COMMON NORMALS: no rashes or lesions noted and no jaundice GENERAL SKIN EXAM: no rashes or lesions noted Urinary Catheter Management^: Ramos: Cath Placed During This Visit: yes, but has since been removed by the nurse Reason for Continuing Indwelling Catheter: Acute Urinary Retention or Obstruction Urinary Catheter Date of Insertion: 04/29/21 Urinary Catheter Time of Insertion: 18:03 Date Urinary Catheter Removed: 04/29/21 Time Urinary Catheter Discontinued: 17:30 Data : 04/30/21 04:18 04/30/21 04:18 A&P Assessment and plan (1) Ureteral mass: Consistent at ureteroscopy with 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 Biopsies pending I recommended consultation for consideration of robotic nephro ureterectomy. They have a family member that lives in [facility] where Dr. Joe Price practices. We will pursue that consultation once we know more regarding his neurologic issues. Status: Acute (2) Hydronephrosis of right kidney: Secondary to mid ureteral obstruction of unclear etiology. See above Status: Acute (3) Gross hematuria: Ongoing symptoms and expected.. Will take out his catheter Status: Acute (4) Frequent falls: Work-up ongoing with current thought pain possible orthostatic hypotension Status: Acute Attestations Medical Necessity Statement*: See attending Coding Level of Care Code Acute Director Manufacturing Engineering for g Fwd Exam Detailed Diagnoses Ureteral mass N28.89 Hydronephrosis of right kidney N13.30 Gross hematuria R31.0 Frequent falls R29.6
--- NOTE | 2021-04-30 08:58 | PC.SOCIAL ---
IMM Update pg 2 of IMM updated and reviewed w/ patient. Copy provided.
--- NOTE | 2021-04-30 09:09 | PM.DCS ---
Discharge Providers Date of Admission: 04/27/21 15:18 Date of Discharge: April 30, 2021 Attending Provider at Admission: Kelly Ash MD Attending Provider at Discharge: Kelly Ash MD Primary Care Provider: Manish Morejon DO Diagnoses at Discharge Discharge Diagnosis (1) Ureteral mass: Status: Acute (2) Hydronephrosis of right kidney: Status: Acute (3) Gross hematuria: Status: Acute (4) Frequent falls: Status: Acute Reason for Visit Reason for Visit: FREQUENT FALLS, DIZZINESS Hospital Course Hospital Course History of Present Illness Diogenes Mustafa is a 86 year old male with no significant past medical history other than hypertension presented today with chief complaint of unstable gait. is at the bedside who is stating that for last 3 days Mr. Mustafa has been very unsteady on his feet especially when he changes his position(stand up from supine). No recent strokelike symptoms, fever shortness of breath or chest pain. Today he felt well standing up from supine position. That prompted his visit to the ER. In the ER he was diagnosed with vertigo, CT head showed meningioma, straight cath was done to obtain urine which revealed bloody urine, UA consistent with hematuria, patient is afebrile, bradycardia noted on telemetry, blood pressure stable, Family at the bedside, normal CBC and BMP, Dr. Green has been consulted, no active signs of sepsis Patient received 1 mg of Ativan which made him confused. At the time of my evaluation he was awake and alert oriented x3 GCS 15 no neurological deficits Asked nurse to place Ramos catheter Continue ceftriaxone 1 g daily, urine culture pending CT/CT kidney stone 16630 IMPRESSION: 1. Moderate right hydronephrosis and hydroureter of the proximal to mid ureter with a possible partially calcified calculus in the right mid ureter measuring 8.8 mm, best seen series 08/10/2011. A CT with contrast could further evaluate this. 2. Urinary bladder wall thickening suggestive of a cystitis, please correlate clinically. 3. Diverticulosis without diverticulitis. 4. Coronary artery atherosclerotic calcifications. 5. Emphysematous changes. 6. Bibasilar atelectasis versus minimal infiltrate. 7. Cholelithiasis. 8. Left adrenal 11 mm low-density nodule likely reflecting a benign adenoma. Hosp course: Patient was admitted for management of gross hematuria, & recurrent falls. Gross hematuria: 04/29 Cystoscopy, right retrograde ureteropyelogram & RIGHT ureteroscopy with biopsy, no stent was placed. Ureteral mass consistent with TCC. Biopsy report pending. Dr Green will make arrangements for consultation for consideration of robotic nephro ureterectomy. They have a family member/daughter that lives in [facility] where Dr. Joe Price practices. Falls: Patient did work with physical therapist. No nystagmus was identified during his hospitalization. No strokelike symptoms. He was positive for orthostasis. Tamsulosin was discontinued which improved his symptoms. He was able to use walker and go to the bathroom independently on the day of discharge. (low b12 detected) Added b12 and discontinued tamsolusin. Borderline low HR ( discontinued toprol) Meningioma: MRI was requested for evaluation of meningioma. MR/MR head wo/w con [id number] IMPRESSION: 1. No evidence of restricted diffusion to suggest acute ischemia. 2. Enhancing meningioma along the anterior sella at the planum sphenoidale eccentric to the right. Slight impingement on the right aspect of the optic chiasm and prechiasmatic optic nerve. Recommend Correlation for visual symptoms. 3. Meningioma measures approximately 1.3 x 1.4 x 0.6 cm AP by transverse by craniocaudal. This extends to involve the right cavernous sinus and slightly extends into the right aspect of the sella. Recommend correlation with pituitary function studies. 4. Meckel's cave is normal in appearance. 5. Moderate small vessel changes with moderate parenchymal volume loss. 6. No hemosiderin on susceptibly weighted images. 7. No other significant findings. Case was discussed with Dr. Mcginnis who recommended neurosurgery follow-up at [facility] with Dr. Johnathan Agustin. Patient decided against brain biopsy and transfer to [facility] . He is well aware that meningioma with vision changes puts him at risk of further complications and right now we do not know the grade of meningioma. He wants to follow-up with his urologist first. Patient and his family is on board with this plan. Plan discussed with Dr Green. Physical Exam Narrative: EXAM NARRATIVE: Patient was resting comfortably in his bed Saturating well on room air S1, S2 Abdomen soft Gross hematuria persistent after cystoscopy No focal deficit Lower extremities without edema Able to use walker Urinary Catheter Management^: Raoms: Cath Placed During This Visit: yes, but has since been removed by the nurse Reason for Continuing Indwelling Catheter: Acute Urinary Retention or Obstruction Urinary Catheter Date of Insertion: 04/29/21 Urinary Catheter Time of Insertion: 18:03 Date Urinary Catheter Removed: 04/29/21 Time Urinary Catheter Discontinued: 17:30 Discharge Data Data Completed and Pending: Completed Studies During Hospitalization Category Date Time Status CT head wo con* 7 0450 Stat Cat Scan 04/26/21 14:[address] kidney stone 7 [id number] Stat Cat Scan 04/26/21 17:01 Completed XR chest 1V kolby ble [id number] Routine Exams 04/27/21 19:51 Completed MR head wo/w con [id number] Routine MRI 04/27/21 14:20 Completed Pending at discharge Category Date Time Status Pathology: Surgic al [PTH] Routine Pth 04/29/21 18:04 Received Labs from last 24 hours 04/30/21 04/30/21 04:18 04:18 WBC 8.5 RBC 4.41 Hgb 13.8 Hct 42.1 MCV 95.5 H MCH 31.3 MCHC 32.8 RDW 13.0 Plt Count 163 MPV 10.5 H Neut % (Auto) 65.7 Lymph % (Auto) 24.4 [place] % (Auto) 7.5 Eos % (Auto) 1.8 Baso % (Auto) 0.2 Neut # (Auto) 5.60 Lymph # (Auto) 2.1 [place] # (Auto) 0.6 Eos # (Auto) 0.2 Baso # (Auto) 0.0 Nucleated RBC % (a uto) 0 Nucleated RBCs # 0.0 Sodium 133 L Potassium 4.5 Chloride 98 Carbon Dioxide 28 Anion Gap 11.5 BUN 36 H Creatinine 1.2 GFR Calculation Not Reportable Glucose 205 H Calculated Osmolal ity 290 Calcium 8.8 Vitals: Last Vital Signs Temp 98.2 F 04/30/21 07:09 Pulse 62 04/30/21 07:09 Resp 16 04/30/21 07:09 BP 123/65 04/30/21 07:09 Pulse Ox 90 04/30/21 07:09 Discharge Plan Discharge Patient Disposition: Home Health Service Condition: Fair Prescriptions: New meclizine 25 mg tablet 25 mg PO QID PRN (Reason: dizziness) Qty: 20 RF: 0 amlodipine 10 mg Tablet 10 mg PO DAILY 30 Days Qty: 30 RF: 3 finasteride 5 mg Tablet 5 mg PO BEDTIME 30 Days Qty: 30 RF: 2 meclizine 25 mg tablet 12.5 mg PO TID PRN (Reason: dizziness) Qty: 30 RF: 0 cyanocobalamin (vitamin B-12) 1,000 mcg capsule 1,000 mcg PO DAILY Qty: 60 RF: 2 Continued atorvastatin 10 mg tablet 10 mg PO BEDTIME RF: 0 Held tamsulosin 0.4 mg capsule 0.4 mg PO BEDTIME RF: 0 Hold Instructions: Resume on 05/04/21. Discontinued ibuprofen 200 mg Tablet 800 mg PO BEDTIME RF: 0 metoprolol succinate 25 mg tablet extended release 24 hr 25 mg PO BEDTIME RF: 0 Discharge Orders: Discharge Order (Routine); Ordered 04/30/21 Ordered By: Tonio Green Other Ambulatory Orders: DME: Walker (Order) Location: None Selected Ordered By: Kelly Ash Referrals: [facility] [Other] [facility] [Other] [facility] [Other] Tonio Green MD [Physician] - 05/10/21 7:30 am (To be arranged. We will make plans for consultation for potential robotic nephro ureterectomy. Will review the pathology report on follow up) Manish Morejon, [Primary Care Provider] - 05/12/21 1:30 pm Discharge Diet: Cardiac Discharge Activity: Use walker/crutches as instructed and As per PT/OT instructions Patient Instructions: Meclizine (By mouth), Finasteride (By mouth) (Propecia, Proscar), Amlodipine (By mouth) (Hypertenipine-2.5, Norvasc), Kidney Stones (DC), Meningioma (DC), Opioid Safety Activity Restrictions/Additional Instructions: Use meclizine as needed. Case management will help arrange for follow-up outpatient MRI and after this you should follow-up with Dr. Morejon return if you have further problems. UROLOGY instructions: 1. I recommend a consultation with urology surgeon who utilizes robotic surgery. Dr. Joe Price practices in [facility]. We can make those arrangements once your neurologic conditions are clarified. 2. I expect that you will continue to have blood in the urine. Discharge Attestations Time Spent in Discharge Care*: less than 30 min Quality Metrics Clinical Quality Measures During this hospital stay, did patient experience: None Coding Level of Care Code Acute Chg FW DC note Diagnoses Ureteral mass N28.89 Hydronephrosis of right kidney N13.30 Gross hematuria R31.0 Frequent falls R29.6
[2021-04-30] MEDS: cefTRIAXone 1,000 MG in sodium chloride 0.9% (plus) 50 ML 100 MG IV (09:30)
[2021-04-30] MEDS: amlodipine 10 mg Tablet PO (09:31)
--- NOTE | 2021-04-30 13:58 | PC.CHAP ---
Pastoral Care Encounter/Spiritual Assessment Type of Contact [xx] Declined cementing machine operator visit [] Patient/Family/Request visit [] Outpatient visit [] Follow-up visit [] Physician referral [] Code/Alert [] Routine visit [] Staff referral [] Actively dying [] Patient sleeping [] Family support [] [] Out of room [] Palliative care [] [] Receiving care in room [] Pre-surgical visit [] Trauma [] Long length of stay [] ICU visit [] Other: Relational/Emotional Strength [] Patient feels connected with others/family/visitors/staff [] Distress [] Loneliness/isolation [] Abandonment Spirituality of Patient [] Person of Natalie [] Attends Caodaism of their Natalie [] Believes in Prayer [] Reads Bible or Scientology materials [] There are Spiritual issues to be addressed Clinical Instructor Interventions [] Prayer [] Active listening [] Non-anxious presence [] Spiritual/emotional support [] Crisis/trauma care [] Spiritual counseling [] Bereavement support [] Provided bereavement packet [] Provided Bible/devotional materials [] Provided toy/stuffed animal, coloring book to patient or family member [] Provided Communion [] Anointing/[place] [] Salvation [] Completed spiritual assessment [] Other: Impact on Illness or Injury [] Angry [] Fearful [] Anxious [] Often cries [] Exhaustion [] Unable to work [] Unable to attend cheondoism [] Unable to walk/stand [] Unable to read [] Unable to drive [] Unable to eat/drink [] Unable to sleep [] Unable to be with family [] Patient intubated [] Other: Summary Patient declined cementing machine operator visit. Time spent with patient
--- NOTE | 2021-04-30 14:44 | PC.NURSE ---
woodard Student nurse removed woodard and forgot to chart amt.
[2021-04-30 14:46] VITALS: BP 123/65; PULSE 62; RESP 16; TEMP 36.8; O2SAT 90
== END 2021-04-30 10:35 | disposition home or self-care (01) | DRG 687 ==
LOC: ER 16:04 → MEDSURG 18:58
PROVIDERS: Urology; Admitting Provider Internal Medicine; Emergency Provider Family Medicine; PCP Electrodiagnostic Medicine; Visit Provider Internal Medicine
PROC: 0TJ98ZZ Inspection of Ureter, Via Natural or Artificial Opening Endoscopic (ICD-10-PCS; CPT 52351; principal; 2021-04-29 14:50)
PROC: 0TJB8ZZ Inspection of Bladder, Via Natural or Artificial Opening Endoscopic (ICD-10-PCS; CPT 52000; 2021-04-29 14:50)
PROC: 0TB68ZX Excision of Right Ureter, Via Natural or Artificial Opening Endoscopic, Diagnostic (ICD-10-PCS; CPT 74420; 2021-04-29 14:50)
DX: C66.1 Malignant neoplasm of right ureter (principal); N30.01 Acute cystitis with hematuria; N13.1 Hydronephrosis with ureteral stricture, not elsewhere classified; H81.10 Benign paroxysmal vertigo, unspecified ear; W19.XXXA Unspecified fall, initial encounter; N40.0 Benign prostatic hyperplasia without lower urinary tract symptoms; I10 Essential (primary) hypertension; I83.93 Asymptomatic varicose veins of bilateral lower extremities; Z96.652 Presence of left artificial knee joint; D32.0 Benign neoplasm of cerebral meninges
CPT/HCPCS: 36415; 36416; 51702; 70450; 70553; 71045; 74176; 76000; 80048; 80053; 81001; 82533; 82550; 82607; 82962; 84146; 84443; 85025; 85378; 85610; 85730; 87086; 88305; 93005; 96365; 96372; 96375; 97161; 97530; 99285; A9577; G0378; J0696; J1100; J2060; J2270; J2405; J2550; J2704; J2920; J3010; J3490; J7030; Q9967

== ENCOUNTER → 2021-11-10 11:14 | Outpatient (BNVA) | payer MEDICARE, OTHER, SELFPAY | PROVIDERS: PCP Family Medicine; Visit Provider Internal Medicine Cardiovascular Disease | DX: I25.10 Atherosclerotic heart disease of native coronary artery without angina pectoris (principal); I25.5 Ischemic cardiomyopathy; E78.5 Hyperlipidemia, unspecified; E11.9 Type 2 diabetes mellitus without complications; Z79.84 Long term (current) use of oral hypoglycemic drugs; I11.0 Hypertensive heart disease with heart failure; I50.33 Acute on chronic diastolic (congestive) heart failure | CPT/HCPCS: 80048; 83880; 93005; 99205 ==

== ENCOUNTER 2021-11-30 13:49 | Outpatient (CLI) | payer MEDICARE, OTHER, SELFPAY ==
[2021-11-30 15:32] LABS: Anion Gap 13.9 (5-19); Blood Urea Nitrogen 18 mg/dL (8-23); Carbon Dioxide 28 mmol/L (22-29); Chloride 96 mmol/L (98-107); Glucose 239 mg/dL (65-115); NT Pro B Type Natriuretic Pept 856 pg/mL (0-450); Osmolality Calculated 288 mOsm/kg (285-295); Potassium 3.9 mmol/L (3.5-5.1); Sodium 134 mmol/L (136-145)
== END 2021-11-30 13:50 | disposition home or self-care (01) ==
LOC: LAB 13:51
PROVIDERS: PCP Family Medicine; Visit Provider Internal Medicine Cardiovascular Disease
DX: I25.10 Atherosclerotic heart disease of native coronary artery without angina pectoris (principal); I25.5 Ischemic cardiomyopathy; E11.9 Type 2 diabetes mellitus without complications
CPT/HCPCS: 80048; 83880

== ENCOUNTER 2021-12-17 09:44 | Outpatient (CLI) | payer MEDICARE, OTHER, SELFPAY ==
--- NOTE | 2021-12-17 10:47 | NMCV_ITS ---
NM jamey perf SPECT r/s* [id number] Diogenes Mustafa Age: 86 Gender: M : 1935 Exam Date: 12/17/2021 10:47 Ordering Phys: Lucy Moreau MD ([email or web address]) Technologist: BERTO Quezada Exam Location: [facility] Indications: SHORTNESS OF BREATH, CHRONIC ISCHEMIC HEART DISEASE STRESS TEST Please [facility] IMAGE PROTOCOL Rest/Stress 1 Lexiscan Day Radiopharmaceutical Dose (mCi) Administration Site Administered by Rest: Tc-99m 10.5 IV BERTO Quezada Sestamibi Stress:Tc-99m 32.9 IV BERTO Velásquez Sestamibi Rest: 17-Dec-2021 60 Discovery 630 Stress: 17-Dec-2021 30 Discovery 630 0.4mg Lexiscan. Supine position only as patient was unable to lay prone. SPECT RESULTS Technical Quality: Excellent Raw Data Analysis: Normal Image Corrections: No attenuation or motion correction applied Summed Stress Score: 36 Summed Rest Score: 31 Summed Difference Score: 5 PERFUSION FINDINGS Large areas of severely decreases uptake in the anterior, inferior, septal and apical regions. Subtle areas of reversibility were noted in the inferior and anterior wall regions. FUNCTIONAL RESULTS (calculated via Gated SPECT) Stress Image LV EF (%): 30 Stress EDV (mL):197 TID: 1.08 Stress ESV (mL):138 FUNCTIONAL FINDINGS: Segmental wall motion analysis revealed a severe diffuse hypokinesia of the septum, anterior wall and the apex. IMPRESSIONS 1. Myocardial perfusion imaging revealing extensive areas of myocardial scarring mostly in the distribution of the left anterior descending artery and the right coronary artery with the small areas of possible umer-infarction ischemia. 2. Diminished LV ejection fraction of 30%. 3. Multiple wall motion normalities as mentioned above. 4. Moderately dilated LV cavity with an end-systolic volume of 138 mL. No similar previous studies are available for comparison Dr Lucy Moreau MD FAC (Electronically Signed) Final Date: 17 December 2021 18:32 S
--- NOTE | 2021-12-17 10:47 | ECG_ITS ---
[facility] Test Date: 2021-12-17 Pat Name: Diogenes Mustafa Department: Room: Gender: Male [id number] Software Engineer: Marguerite Calvo : 1935 Requested By: Lucy Moreau Order Number: [id number] Melchor MD: Lucy Moreau M.D. Interpretive Statements NAME OF STUDY: LEXISCAN SESTAMIBI STRESS TEST INDICATION: ashd/chf, PROCEDURE: At the baseline, the EKG revealed normal sinus rhythm with a left bundle branch block pattern. Nonspecific ST changes. The baseline blood pressure was 121/67 mm Hg with a heart rate of 83 beats/min. Lexiscan was infused over a period of 20 seconds. A total of 0.4 milligrams of Lexiscan was infused. The stress phase was continued for a total of 5 minutes. Heart rate at the end of the stress phase was 88 with a blood pressure 122/73. The EKG at the peak infusion revealed no significant changes. Sestamibi was injected 20 seconds after the Lexiscan infusion. Blood pressure at the end of the recovery phase was 122/70 with a heart rate of 87 per minute. CONCLUSION: 1. The EKG was found to Lexiscan infusion is uninterpretable due to baseline changes 2. No LexiScan induced chest pain or cardiac arrhythmia 3. Normal blood pressure and heart rate response 4. Sestamibi/sestamibi perfusion scan pending; see separate report. Electronically Signed On 12-24-2021 6:43:23 CDT by Lucy Moreau M.D. [email or web address]/[id number]
[2021-12-17 10:48] VITALS: BMI 29.2
[2021-12-17 11:59] VITALS: BP 122/70; PULSE 87
[2021-12-17] MEDS: regadenoson 0.4 Mg/5 ml Syringe IVP (12:00)
== END 2021-12-17 09:45 | disposition home or self-care (01) ==
LOC: CDL 09:50
PROVIDERS: PCP Family Medicine; Visit Provider Internal Medicine Cardiovascular Disease
DX: R06.02 Shortness of breath (principal); I25.10 Atherosclerotic heart disease of native coronary artery without angina pectoris
CPT/HCPCS: 78452; 93017; A9500; J2785

== ENCOUNTER 2021-12-21 13:21 | Outpatient (CLI) | payer MEDICARE, OTHER, SELFPAY ==
--- NOTE | 2021-12-21 13:45 | USCV_ITS ---
Diogenes Mustafa Age: 86 Gender: M : 1935 Exam Date: 12/21/2021 13:45 Ordering Phys: Lucy Moreau MD ([email or web address]) Technologist: MARÍA [place] [facility] [place]: CHF/Cardiomyopathy BP: 106 / 53 HR: 82 Rhythm: Sinus Technical Quality: Technically difficult study MEASUREMENTS (Male / Female) Normal Values 2D ECHO LV Diastolic Diameter PLAX 3.8 cm 4.2 - 5.9 / 3.9 - 5.3 cm LV Systolic Diameter PLAX 2.6 cm IVS Diastolic Thickness 1.1 cm 0.6 - 1.0 / 0.6 - 0.9 cm IVS Systolic Thickness 1.6 cm LVPW Diastolic Thickness 1.5 cm 0.6 - 1.0 / 0.6 - 0.9 cm LVPW Systolic Thickness 1.2 cm LVOT Diameter 2.0 cm LV Ejection Fraction 2D Teich 62.0 % LA Diameter 2.6 cm Aorta at Sinotubular Diameter 2.0 cm M-MODE Aortic Annulus Diameter 3.0 cm LA Ao Ratio MM 1.0 MV E Point Septal Separation 0.2 cm DOPPLER AV Peak Velocity 99.0 cm/s LVOT Peak Velocity 85.0 cm/s AV Area Cont Eq vti 3.1 cm squared AV Area Cont Eq pk 2.8 cm squared MV Area PHT 5.0 cm squared MV E' Velocity 61.5 cm/s Mitral E to MV E' Ratio 32.2 Mitral E to LV E' Lateral Ratio 29.8 Mitral E to LV E' Septal Ratio 35.1 PV Peak Velocity 98.0 cm/s RV Acceleration Time 0.1 s RV Ejection Time 0.3 s RV AcT/ET 0.2 FINDINGS Left Ventricle Diffuse hypokinesia of the septum, anteroseptum and the LV apex. LV ejection fraction around 40%. Right Ventricle Right ventricle not well visualized. Right Atrium Right atrium not well visualized. Left Atrium Possibly of normal size. Mitral Valve Thickened mitral valve. Mild mitral annular calcification. Aortic Valve Thickened aortic valve. Trace to mild aortic valve regurgitation. Tricuspid Valve Tricuspid valve not well visualized. Pulmonic Valve Pulmonic valve not well visualized. Pericardium Normal pericardium without effusion. Aorta Normal aortic annulus size. IVC Inferior vena cava not visualized. CONCLUSIONS Diffuse hypokinesia of the septum, anteroseptum and the LV apex. LV ejection fraction around 40%. Thickened aortic and mitral valves. Mild mitral annular calcification. Trace to mild aortic valve regurgitation. There is no pericardial effusion. Technically difficult study because of the poor ultrasonic window. No similar previous studies are available for comparison Dr Lucy Moreau MD [facility] (Electronically Signed) Final Date: 22 December 2021 01:13 S
--- NOTE | 2021-12-21 14:15 | USCV_ITS ---
Diogenes Mustafa Age: 86 Gender: M : 1935 Exam Date: 12/21/2021 14:10 Ordering Phys: Lucy Moreau MD ([email or web address]) Technologist: MARÍA Exam Location: [facility] [place] Indication: Leg pain Risk Factors: Previous Vascular Surgery: RIGHT LEFT BP: 106.0 / 56.00 BP: 116.0/ 75.00 0 0 Waveform Velocity (cm/s) Velocity (cm/s) Waveform Biphasic 75.5 Iliac Prox 84.6 Biphasic Biphasic 69.7 Iliac Mid 83.6 Biphasic Biphasic 81.1 Iliac Distal 80.7 Biphasic Biphasic 76.9 PRESS OPERATOR CARBON BLOCKS 100.9 Biphasic Biphasic 67.0 SFA Prox 68.4 Biphasic Biphasic 59.6 SFA Mid 86.0 Biphasic Biphasic 66.6 SFA Dist 68.5 Biphasic Biphasic 51.0 POP 60.5 Biphasic Biphasic 29.9 VENDING ATTENDANT 59.0 Biphasic Biphasic 25.4 DPA 15.4 Monophasic 1.4 LESLI 1.6 FINDINGS Lt brach 116/75 Rt brach 106/56 Resting LESLI 1.4 on the right side and 1.6 in the left side Normal arterial Doppler velocities bilaterally Biphasic waveforms bilaterally CONCLUSIONS No significant arterial obstruction, based on the above findings. Features of extensive arterial sclerosis. Dr Lucy Moreau MD [facility] (Electronically Signed) Final Date: 22 December 2021 01:15 S
== END 2021-12-21 13:22 | disposition home or self-care (01) ==
LOC: RAD 13:22
PROVIDERS: PCP Family Medicine; Visit Provider Internal Medicine Cardiovascular Disease
DX: R06.00 Dyspnea, unspecified (principal); I25.5 Ischemic cardiomyopathy; I73.9 Peripheral vascular disease, unspecified
CPT/HCPCS: 93306; 93925

== ENCOUNTER → 2022-01-19 10:37 | Outpatient (BNVA) | payer MEDICARE, OTHER, SELFPAY | PROVIDERS: PCP Family Medicine; Visit Provider Internal Medicine Cardiovascular Disease | DX: I25.10 Atherosclerotic heart disease of native coronary artery without angina pectoris (principal); E11.9 Type 2 diabetes mellitus without complications; E78.5 Hyperlipidemia, unspecified; I25.5 Ischemic cardiomyopathy; I11.0 Hypertensive heart disease with heart failure; I50.33 Acute on chronic diastolic (congestive) heart failure; Z79.84 Long term (current) use of oral hypoglycemic drugs | CPT/HCPCS: 80048; 83880; 99214; 99215 ==

== ENCOUNTER 2022-02-04 11:07 | Outpatient (CLI) | payer MEDICARE, OTHER, SELFPAY ==
[2022-02-04 11:53] LABS: Anion Gap 13.5 (5-19); Blood Urea Nitrogen 21 mg/dL (8-23); Calcium 9.5 mg/dL (8.5-10.5); Carbon Dioxide 30 mmol/L (22-29); Chloride 100 mmol/L (98-107); Glucose 166 mg/dL (65-115); NT Pro B Type Natriuretic Pept 665 pg/mL (0-450); Osmolality Calculated 295 mOsm/kg (285-295); Potassium 4.5 mmol/L (3.5-5.1); Sodium 139 mmol/L (136-145)
== END 2022-02-04 11:08 | disposition home or self-care (01) ==
PROVIDERS: PCP Family Medicine; Visit Provider Internal Medicine Cardiovascular Disease
DX: E11.9 Type 2 diabetes mellitus without complications (principal); I25.10 Atherosclerotic heart disease of native coronary artery without angina pectoris
CPT/HCPCS: 36415; 80048; 83880

== ENCOUNTER → 2022-02-16 10:46 | Outpatient (BNVA) | payer MEDICARE, OTHER, SELFPAY | PROVIDERS: PCP Family Medicine; Visit Provider Nurse Practitioner Family | DX: I25.5 Ischemic cardiomyopathy (principal); I10 Essential (primary) hypertension | CPT/HCPCS: 99213 ==

== ENCOUNTER → 2022-05-18 16:10 | Outpatient (BNVA) | payer MEDICARE, OTHER, SELFPAY | PROVIDERS: PCP Family Medicine; Visit Provider Internal Medicine Cardiovascular Disease | DX: I25.10 Atherosclerotic heart disease of native coronary artery without angina pectoris (principal); R06.02 Shortness of breath; I25.5 Ischemic cardiomyopathy; E78.5 Hyperlipidemia, unspecified; E11.9 Type 2 diabetes mellitus without complications; Z79.84 Long term (current) use of oral hypoglycemic drugs; I10 Essential (primary) hypertension | CPT/HCPCS: 80048; 83880; 99214 ==

== ENCOUNTER 2022-06-13 15:35 | Outpatient (CLI) | payer MEDICARE, OTHER, SELFPAY ==
[2022-06-13 16:58] LABS: Anion Gap 14.4 (5-19); Blood Urea Nitrogen 21 mg/dL (8-23); Calcium 9.8 mg/dL (8.5-10.5); Carbon Dioxide 27 mmol/L (22-29); Chloride 99 mmol/L (98-107); Glucose 181 mg/dL (65-115); NT Pro B Type Natriuretic Pept 683 pg/mL (0-450); Osmolality Calculated 290 mOsm/kg (285-295); Potassium 4.4 mmol/L (3.5-5.1); Sodium 136 mmol/L (136-145)
== END 2022-06-13 15:36 | disposition home or self-care (01) ==
PROVIDERS: PCP Family Medicine; Visit Provider Internal Medicine Cardiovascular Disease
DX: I25.10 Atherosclerotic heart disease of native coronary artery without angina pectoris (principal); I25.5 Ischemic cardiomyopathy
CPT/HCPCS: 80048; 83880

== ENCOUNTER → 2022-11-24 14:28 | Outpatient (BNVA) | payer MEDICARE, OTHER, SELFPAY | PROVIDERS: PCP Family Medicine; Visit Provider Internal Medicine Cardiovascular Disease | DX: R07.9 Chest pain, unspecified (principal); I25.110 Atherosclerotic heart disease of native coronary artery with unstable angina pectoris; E78.5 Hyperlipidemia, unspecified; E11.9 Type 2 diabetes mellitus without complications; I25.5 Ischemic cardiomyopathy; I95.9 Hypotension, unspecified | CPT/HCPCS: 93005 ==

== ENCOUNTER 2022-11-24 14:42 | Inpatient (IN) | payer MEDICARE, OTHER, SELFPAY ==
[2022-11-24] VITALS (21 sets, daily range): BP systolic 96–124; BP diastolic 48–73; PULSE 59–77; RESP 9–40; TEMP 37; O2SAT 92–100; BMI 29.2
--- NOTE | 2022-11-24 14:48 | ED_ITS ---
HPI - Chest Pain General: Chief Complaint: Chest Pain Stated Complaint: chest pain Time Seen by Provider: 11/24/22 14:46 History of Present Illness: Mr. Mustafa is a an 87-year-old gentleman with complex history including CAD with ischemic cardiomyopathy, diabetes, neuropathy carcinoma presenting to the emergency department for worsening chest pain. He notes worsening symptoms over the past few weeks. He has had exertional dyspnea and chest tightness without radiation or other typical cardiac features. He spoke with cardiology today and was referred to the ER for further management. Overall question of symptoms has been worsening. Intensity is moderate to severe. No other specific changes in health, exacerbating, or alleviating factors identified. Onset (ago): week(s) Timing of current episode: episodic Prior episodes: Yes Onset: during exertion Pain location: substernal Pain radiation: none Quality: tightness Relieving factors: nothing Exacerbating factors: exertion Associated symptoms: Reports dyspnea Review of Systems General: Reports: 10 or more systems reviewed and unremarkable except in HPI and below Resp: Reports: dyspnea PFSH ED PFSH: Medical History BPH (benign prostatic hyperplasia) HTN (hypertension) Varicose veins of both lower extremities Surgical History History of left knee replacement Family History Mother , AT AGE 84 PANCREATIC CANCER Cancer Father , AT AGE 85 CHF/COLON CANCER Cancer CAD (coronary artery disease) Anesthesia complication Brother CAD (coronary artery disease) Other Diabetes Hyperlipidemia Denies family history of Clotting disorder Dementia Chronic kidney disease (CKD) Suicide Bleeding disorder Lung disease Stroke Social History Smoking and tobacco status: never smoked Alcohol intake: never Substance/Drug Use: never Housing: House Marital status: Current occupational status: retired Physical Exam Const: COMMON NORMALS: alert GENERAL APPEARANCE: cooperative and well developed HENMT: COMMON NORMALS: normocephalic and atraumatic HEAD & SCALP: normocephalic and atraumatic Eye: COMMON NORMALS: conjunctivae normal CONJUNCTIVA: Yes conjunctivae normal SCLERA: sclerae normal Neck/C-Spine: COMMON NORMALS: supple GENERAL: Yes trachea midline Resp: COMMON NORMALS: clear to auscultation bilaterally EFFORT & INSPECTION: Yes able to speak in complete sentences AUSCULTATION: clear to auscultation bilaterally Cardio: COMMON NORMALS: regular rate and regular rhythm RATE: regular rate RHYTHM: regular rhythm GI: COMMON NORMALS: Soft to palpation PALPATION: Yes Soft to palpation and No Tenderness to palpation present (GI) Extremity: GENERAL: Yes normal exam except as noted and No edema Neuro: COMMON NORMALS: moves all extremities SENSORIUM/ORIENTATION: Yes alert and No Orientation impaired OTHER: Reports baseline neuropathy Psych: COMMON NORMALS: mental status grossly normal and Normal thought process present THOUGHT PROCESS: Normal thought process present Course Vital Signs: Vital signs: Vital Signs Temperature 98.6 F 11/24/22 14:48 Pulse Rate 60 11/24/22 20:00 Respiratory Rate 21 H 11/24/22 20:00 Blood Pressure 115/59 11/24/22 20:00 Pulse Oximetry 98 11/24/22 20:00 Oxygen Delivery Me thod Room Air 11/24/22 20:00 MDM - Chest Pain Medical Decision Making 87-year-old gentleman presenting to the emergency department from cardiology office with extensive cardiac history and worsening chest pain including current chest pain. Patient is nontoxic. EKG demonstrates left bundle branch block. Labs notable for no leukocytosis, normal hemoglobin and platelet count. Minimal elevation in creatinine with electrolytes within normal limits. Initial troponin is elevated with positive range 2-hour delta of 10.1. I do not have values for comparison. COVID-negative. Chest x-ray demonstrates cardiomegaly, no lobar consolidation or pneumothorax. During ED course patient received aspirin and therapeutic Lovenox. While sitting in chair he was noted to be pale, orthostatics were positive, he received 1 L IV crystalloid. Most likely etiology of patient's symptoms is NSTEMI. The results of ED evaluation were discussed with the patient including plan for admission due to requirement for level of care not available if discharged to prevent significant worsening/deterioration. Patient agreeable with plan. Discussed with hospitalist service who was agreeable to admit patient. Cardiology service consulted. Medical Records I reviewed the patient's medical records. Lab Data I reviewed the patient's lab results. 11/24/22 15:10 11/24/22 15:10 Radiology Impressions Chest X-Ray 11/24/22 15:01 Impression: Cardiomegaly and atherosclerosis. Laboratory Results WBC 7.9 10^3/uL (4.0-10.0) 11/24/22 15:10 RBC 4.13 10^6/uL (4.1-5.3) 11/24/22 15:10 Hgb 13.1 g/dL (11.7-16.6) 11/24/22 15:10 Hct 39.7 % (42.0-52.0) L 11/24/22 15:10 MCV 96.1 fl (80-94) H 11/24/22 15:10 MCH 31.7 pg (28.0-34.0) 11/24/22 15:10 MCHC 33.0 g/dL (30.0-36.0) 11/24/22 15:10 RDW 13.4 % (12.1-15.1) 11/24/22 15:10 Plt Count 165 10^3/cmm (130-400) 11/24/22 15:10 MPV 10.8 fL (7.4-10.4) H 11/24/22 15:10 Neut % (Auto) 52.6 % 11/24/22 15:10 Lymph % (Auto) 39.8 % 11/24/22 15:10 Garden % (Auto) 4.9 % 11/24/22 15:10 Eos % (Auto) 1.8 % 11/24/22 15:10 Baso % (Auto) 0.6 % 11/24/22 15:10 Neut # (Auto) 4.15 10^3/uL (1.8-7.7) 11/24/22 15:10 Lymph # (Auto) 3.1 10^3/uL (0.8-4.8) 11/24/22 15:10 Garden # (Auto) 0.4 10^3/uL (0.2-0.9) 11/24/22 15:10 Eos # (Auto) 0.1 10^3/uL (0.0-0.8) 11/24/22 15:10 Baso # (Auto) 0.1 10^3/uL (0.0-0.1) 11/24/22 15:10 Nucleated RBC % (auto) 0 % 11/24/22 15:10 Nucleated RBCs # 0.0 /100WBC 11/24/22 15:10 Sodium 138 mmol/L (136-145) 11/24/22 15:10 Potassium 4.0 mmol/L (3.5-5.1) 11/24/22 15:10 Chloride 100 mmol/L (98-107) 11/24/22 15:10 Carbon Dioxide 26 mmol/L (22-29) 11/24/22 15:10 Anion Gap 16.0 (5-19) 11/24/22 15:10 BUN 14 mg/dL (8-23) 11/24/22 15:10 Creatinine 1.4 mg/dL (0.7-1.2) H 11/24/22 15:10 GFR Calculation Not Reportable 11/24/22 15:10 Glucose 196 mg/dL (65-115) H 11/24/22 15:10 Calculated Osmolality 292 mOsm/kg (285-295) 11/24/22 15:10 Calcium 9.0 mg/dL (8.5-10.5) 11/24/22 15:10 Total Bilirubin 0.3 mg/dL (0.15-1.2) 11/24/22 15:10 AST 15 U/L (0-40) 11/24/22 15:10 ALT 7 U/L (0-41) 11/24/22 15:10 Alkaline Phosphatase 73 U/L (40-130) 11/24/22 15:10 Troponin T Baseline 128 ng/L (0-15) H* 11/24/22 15:10 Troponin T 120 Minute 138.1 ng/L (0-15) H 11/24/22 17:01 Delta Troponin T 10.1 ABS# (0-10) H* 11/24/22 17:01 NT-Pro-B Natriuret Pep 726 pg/mL (0-450) H 11/24/22 15:10 Total Protein 6.7 g/dL (6.6-8.7) 11/24/22 15:10 Albumin 3.7 g/dL (3.5-5.2) 11/24/22 15:10 Globulin 3.0 g/dL (1.3-4.6) 11/24/22 15:10 SARS-CoV-2 Ag (Rapid) negative 11/24/22 15:45 Discharge Plan Discharge Patient Disposition: Admitted As Inpatient Admit Provider: Michelle Hester Clinical Impression: Acute non-ST elevation myocardial infarction (NSTEMI) Condition: Stable Coding Level of Care Code ED Certified Ethical Hacker for Sofiya Gary
--- NOTE | 2022-11-24 15:01 | XR_ITS ---
WS: [id number] Portable AP upright chest, 11/24/2022 Clinical Data: sob, cp Comparison: Portable chest, 04/27/2021 Findings: No nodules, masses or effusions are seen. The heart is slightly enlarged. The pulmonary vas cularity is not increased. No pneumonia or pneumothorax is seen. The aortic arch and descending thora cic aorta show tortuosity. There is bilateral pleural reaction at the costophrenic angles. Monitor le ads are on the chest wall. 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 XR/XR chest 1V portable [id number] Impression: Cardiomegaly and atherosclerosis.
--- NOTE | 2022-11-24 15:01 | ECG_ITS ---
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 Measurements Intervals [place] Rate: 70 P: 56 CT: 187 QRS: 43 QRSD: 164 T: 158 QT: 390 QTc: 424 Interpretive Statements SINUS RHYTHM LEFT BUNDLE BRANCH BLOCK [120+ ms QRS DURATION, 80+ ms Q/S IN V1/V2, 85+ ms R IN I/aVL/V5/V6] INTERPRETATION BASED ON A DEFAULT AGE OF 40 YEARS Compared to ECG 11/24/2022 14:31:29 Sinus arrhythmia no longer present Electronically Signed On 11-26-2022 6:04:26 CDT by Kaitlin Zambrano M.D. [email or web address]/store/NU/[id number] f
[2022-11-24 15:20] LABS: Basophils # 0.1 10^3/uL (0.0-0.1); Basophils % 0.6 %; Eosinophils # 0.1 10^3/uL (0.0-0.8); Eosinophils % 1.8 %; Hematocrit 39.7 % (42.0-52.0); Hemoglobin 13.1 g/dL (11.7-16.6); Lymphocytes # 3.1 10^3/uL (0.8-4.8); Lymphocytes % 39.8 %; Mean Corpuscular Hemoglobin 31.7 pg (28.0-34.0); Mean Corpuscular Volume 96.1 fl (80-94); Mean Platelet Volume 10.8 fL (7.4-10.4); Monocytes # 0.4 10^3/uL (0.2-0.9); Monocytes % 4.9 %; Neutrophils # 4.15 10^3/uL (1.8-7.7); Neutrophils % 52.6 %; Nucleated Red Blood Cells % 0 %; Platelet Count 165 10^3/cmm (130-400); Red Blood Count 4.13 10^6/uL (4.1-5.3); Red Cell Distribution Width 13.4 % (12.1-15.1); White Blood Count 7.9 10^3/uL (4.0-10.0)
[2022-11-24 15:54] LABS: Alanine Aminotransferase 7 U/L (0-41); Albumin Level 3.7 g/dL (3.5-5.2); Alkaline Phosphatase 73 U/L (40-130); Aspartate Amino Transferase 15 U/L (0-40); Blood Urea Nitrogen 14 mg/dL (8-23); Carbon Dioxide 26 mmol/L (22-29); Chloride 100 mmol/L (98-107); Glucose 196 mg/dL (65-115); NT Pro B Type Natriuretic Pept 726 pg/mL (0-450); Osmolality Calculated 292 mOsm/kg (285-295); Sodium 138 mmol/L (136-145); Total Bilirubin 0.3 mg/dL (0.15-1.2); Total Protein 6.7 g/dL (6.6-8.7); Troponin(5th) Baseline 128 ng/L (0-15)
[2022-11-24 16:09] LABS: SARS Covid-2 Antigen negative
--- NOTE | 2022-11-24 17:39 | ECG_ITS ---
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 Measurements Intervals [place] Rate: 62 P: 66 OR: 222 QRS: 22 QRSD: 175 T: 162 QT: 427 QTc: 436 Interpretive Statements SINUS RHYTHM WITH FIRST DEGREE AV BLOCK LEFT BUNDLE BRANCH BLOCK [120+ ms QRS DURATION, 80+ ms Q/S IN V1/V2, 85+ ms R IN I/aVL/V5/V6] Compared to ECG 11/24/2022 14:31:29 First degree AV block now present Sinus arrhythmia no longer present Electronically Signed On 11-26-2022 6:52:19 CDT by Kaitlin Zambrano M.D. [email or web address]/store/[id number]
[2022-11-24 18:21] LABS: Troponin 5 2HR 138.1 ng/L (0-15); Troponin 5 2HR Delta 10.1 ABS# (0-10)
--- NOTE | 2022-11-24 18:21 | PC.NURSE ---
orthostatic vitals Lying 107/57 P 71 Sitting 84/47 P72 Standing 80/50 P101 Reported to
[2022-11-24] MEDS: sodium chloride 0.9% 1,000 ML 999 ML IV (18:26)
[2022-11-24] MEDS: aspirin 81 mg Chew Tablet 324 MG PO (18:44)
[2022-11-24] MEDS: enoxaparin 100 mg/mL Syringe 95 MG SUBCUT (19:49)
--- NOTE | 2022-11-24 21:01 | ECG_ITS ---
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 Measurements Intervals [place] Rate: 61 P: 55 HI: 211 QRS: 29 QRSD: 174 T: 228 QT: 465 QTc: 470 Interpretive Statements SINUS RHYTHM WITH FIRST DEGREE AV BLOCK LEFT BUNDLE BRANCH BLOCK [120+ ms QRS DURATION, 80+ ms Q/S IN V1/V2, 85+ ms R IN I/aVL/V5/V6] Compared to ECG 11/24/2022 17:39:33 No significant changes Electronically Signed On 11-26-2022 6:50:37 CDT by Kaitlin Zambrano M.D. [email or web address] [email or web address]/OM/[id number]
[2022-11-24 21:43] LABS: Troponin 5 6HR Delta 5.7 ng/L (0-12)
[2022-11-24 21:44] LABS: Troponin 5 6HR 133.7 ng/L (0-15)
--- NOTE | 2022-11-24 23:13 | P.HP_ITS ---
Providers/Chief Complaint Admitting Physician: Michelle Hester MD Primary Care Provider: Marquez Ross MD Chief Complaint: chest pain History of Present Illness Diogenes Mustafa is a 87 year old male with CAD ,ischemic cardiomyopathy, T2DM, and dyslipidemia. he has been having chest pain on and off for the past weeks. 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 He has also had worsening dyspnea over this time frame. He was sent to ER for further evaluation. EKg shows sinus rhythm with a left bundle branch block pattern.? Sinus arrhythmia. Troponin trend 128 --> 138 --> 133 with positive delta at 2 hrs. Review of Systems General: Reports: 10 or more systems reviewed and unremarkable except in HPI and below Const: Denies: fever(s), chills or body aches Eyes: Denies: change in vision, blurry vision or photophobia ENMT: Reports: hoarseness; Denies: throat pain, enlarged tonsils, odynophagia or nasal congestion Card: Denies: chest pain, palpitations, irregular heart rhythm, edema, swelling of feet/ankles, lightheadedness, pre-syncope, dyspnea on exertion or orthopnea Resp: Denies: dyspnea, productive cough, non-productive cough, wheezing, stridor, pain on inspiration, change in phlegm color, hemoptysis or chest congestion GI: Denies: abdominal pain, nausea, vomiting, hematemesis, coffee ground emesis, dysphagia, heartburn, diarrhea, constipation, GI cramping, change in stool character, hematochezia or melena : Denies: flank pain, dysuria, urinary frequency, urinary urgency, urinary hesitancy or hematuria Musc: Denies: neck pain, back pain, extremity pain, joint swelling, joint warmth or deformity Neuro: Denies: headache(s), numbness in extremities, weakness in extremities, sensory changes, difficulty walking, frequent falls, dizziness, vertigo, behavioral changes, Slurred speech present or seizure-like activity Psych: Denies: anxiety, depression, suicidal ideation or homicidal ideation Endo: Denies: polyuria, polydipsia, tired all the time, cold intolerance or hot flashes [place]/Lymph: Denies: easy bruising or easy bleeding Medications/Allergies Home Medications Medication Instructions Recorded Confirmed Last Taken Type atorvastatin 10 mg tablet 10 mg PO BEDTIME 04/26/21 11/24/22 04/25/21 History finasteride 5 mg tablet 5 mg PO BEDTIME 30 days #30 tabs 04/30/21 11/24/22 11/23/22 Rx metformin 500 mg tablet 500 mg PO DAILY 11/10/21 11/24/22 11/24/22 History tamsulosin 0.4 mg capsule 0.4 mg PO DAILY 11/10/21 11/24/22 11/24/22 History sacubitril 24 mg-valsartan 26 mg 1 tab PO BID #180 tabs 05/09/22 11/24/22 11/24/22 Rx tablet (Entresto) spironolactone 25 mg tablet 25 mg PO DAILY #90 tabs 05/19/22 11/24/22 11/24/22 Rx furosemide 20 mg tablet 20 mg PO DAILY #90 tabs 05/25/22 11/24/22 11/24/22 Rx acetaminophen 325 mg tablet 325 mg PO QID PRN Pain 11/24/22 11/24/22 Unknown History amlodipine 5 mg tablet 5 mg PO DAILY 11/24/22 11/24/22 11/24/22 History lisinopril 40 mg tablet 40 mg PO DAILY 11/24/22 11/24/22 11/24/22 History Allergies Allergy/AdvReac Type Severity Reaction Status Date / Time No Known Allergies Allergy Verified 11/24/22 14:50 PFSH Acute PFSH: Medical History BPH (benign prostatic hyperplasia) HTN (hypertension) Varicose veins of both lower extremities Surgical History History of left knee replacement Family History Mother , AT AGE 84 PANCREATIC CANCER Cancer Father , AT AGE 85 CHF/COLON CANCER Cancer CAD (coronary artery disease) Anesthesia complication Brother CAD (coronary artery disease) Other Diabetes Hyperlipidemia Denies family history of Clotting disorder Dementia Chronic kidney disease (CKD) Suicide Bleeding disorder Lung disease Stroke Social History Smoking and tobacco status: never smoked Alcohol intake: never Substance/Drug Use: never Housing: House Marital status: Current occupational status: retired Vitals/I&O/Wt Last Vital Signs Temp 98.6 F 11/24/22 14:48 Pulse 60 11/24/22 23:00 Resp 16 11/24/22 23:00 BP 97/48 11/24/22 23:00 Pulse Ox 94 11/24/22 23:00 O2 Del Method Room Air 11/24/22 23:00 11/24/22 11/24/22 11/25/22 14:59 22:59 06:59 Intake Total 1000 / 1000 Balance 1000 / 1000 Weight last 48 hrs Weight 95.254 kg Physical Exam Narrative: General: No acute distress, AO x3 HEENT: PERRLA, pupils bilaterally equal and reactive, pallors not present Chest: Normal vesicular breath sounds, no added sounds, equal good air entry bi laterally CVS: S1-S2 regular, no murmurs, no tachycardia, no gallops, no rubs Abdomen: Soft, nontender, no organomegaly, bowel sounds present Neuro: No focal deficits, no facial deformity, AO x3, power 5/5 in all limbs Data 11/25/22 04:55 11/25/22 04:55 A&P Assessment and plan (1) Acute non-ST elevation myocardial infarction (NSTEMI): ongoing chest pain. EKG with LBBB, elavted troponins with + delta at 2 hrs raise concern for NSTEMI lovenox 1mg/kg every 12 hrs ASA, statin Cardiology consult Npo p/MN for possible cath (2) Atherosclerotic heart disease of [place] coronary artery with unstable angina pectoris: (3) T2DM (type 2 diabetes mellitus): Insulin sliding scale Attestations Medical Necessity Statement*: anticipate > 2 midnight stay for NSTEMI, possible cardiac cath, ongoing chest pain Coding Level of Care Code Acute Code for [facility] Diagnoses Acute non-ST elevation myocardial infarction (NSTEMI) I21.4 Atherosclerotic heart disease of [place] coronary artery with unstable angina pectoris I25.110 T2DM (type 2 diabetes mellitus) E11.9
[2022-11-25] VITALS (40 sets, daily range): BP systolic 84–155; BP diastolic 38–61; PULSE 56–81; RESP 3–29; TEMP 36.8–37.2; O2SAT 85–97
[2022-11-25 05:00] LABS: Basophils % 0.6 %; Eosinophils # 0.2 10^3/uL (0.0-0.8); Eosinophils % 3.2 %; Hematocrit 36.1 % (42.0-52.0); Hemoglobin 11.7 g/dL (11.7-16.6); Lymphocytes # 2.4 10^3/uL (0.8-4.8); Lymphocytes % 39.3 %; Mean Corpuscular HGB Conc 32.4 g/dL (30.0-36.0); Mean Corpuscular Hemoglobin 31.5 pg (28.0-34.0); Mean Platelet Volume 10.6 fL (7.4-10.4); Monocytes # 0.3 10^3/uL (0.2-0.9); Monocytes % 5.5 %; Neutrophils # 3.16 10^3/uL (1.8-7.7); Neutrophils % 51.1 %; Nucleated Red Blood Cells % 0 %; Platelet Count 150 10^3/cmm (130-400); Red Blood Count 3.72 10^6/uL (4.1-5.3); Red Cell Distribution Width 13.4 % (12.1-15.1); White Blood Count 6.2 10^3/uL (4.0-10.0)
[2022-11-25 05:18] LABS: Alanine Aminotransferase 7 U/L (0-41); Albumin Level 2.9 g/dL (3.5-5.2); Alkaline Phosphatase 69 U/L (40-130); Aspartate Amino Transferase 14 U/L (0-40); Blood Urea Nitrogen 14 mg/dL (8-23); Calcium 8.1 mg/dL (8.5-10.5); Carbon Dioxide 27 mmol/L (22-29); Chloride 107 mmol/L (98-107); Globulin 3.1 g/dL (1.3-4.6); Glucose 127 mg/dL (65-115); Magnesium 1.5 mg/dL (1.7-2.3); Osmolality Calculated 294 mOsm/kg (285-295); Sodium 141 mmol/L (136-145); Total Bilirubin 0.4 mg/dL (0.15-1.2)
[2022-11-25] MEDS: pantoprazole DR 40 mg Tablet PO (08:37)
[2022-11-25] MEDS: spironolactone 25 mg Tablet PO (08:37)
[2022-11-25] MEDS: aspirin 81 mg EC Tablet PO (08:37)
[2022-11-25] MEDS: tamsulosin 0.4 mg Capsule PO (08:37)
[2022-11-25] MEDS: amlodipine 5 mg Tablet PO (08:37)
[2022-11-25] MEDS: enoxaparin 100 mg/mL Syringe 90 MG SUBCUT (08:37)
--- NOTE | 2022-11-25 08:49 | P.CONIM_ITS ---
Providers/Reason For Consult Consulting Physician/Specialty*: Dr. 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 The episodes are more frequent and have been lasting longer. EKG with sinus rhythm, first degree AV block and LBBB. Troponin 128--> 138-->134. No chest pain at the time of evaluation. Family at bedside. Review of Systems 2 General: Reports: 10 or more systems reviewed and unremarkable except in HPI and below Const: Reports: fatigue Eyes: Denies: change in vision ENMT: Denies: change in hearing or epistaxis Card: Reports: chest pain, palpitations, irregular heart rhythm, swelling of feet/ankles, lightheadedness, pre-syncope and dyspnea on exertion; Denies: syncope Resp: Denies: dyspnea GI: Denies: hematemesis, hematochezia or melena : Denies: hematuria Musc: Denies: neck pain, back pain, extremity pain, joint pain, muscle cramps or muscle weakness Skin/Breast: Denies: rash or pruritus Neuro: Reports: headache(s) and dizziness; Denies: numbness in extremities, weakness in extremities, difficulty walking or frequent falls Psych: Denies: anxiety or depression Endo: Reports: tired all the time; Denies: polyuria, polydipsia or excessive sweating [place]/Lymph: Reports: easy bleeding Medications/Allergies Home Medications Medication Instructions Recorded Confirmed Last Taken Type atorvastatin 10 mg tablet 10 mg PO BEDTIME 04/26/21 11/24/22 04/25/21 History finasteride 5 mg tablet 5 mg PO BEDTIME 30 days #30 tabs 04/30/21 11/24/22 11/23/22 Rx metformin 500 mg tablet 500 mg PO DAILY 11/10/21 11/24/22 11/24/22 History tamsulosin 0.4 mg capsule 0.4 mg PO DAILY 11/10/21 11/24/22 11/24/22 History sacubitril 24 mg-valsartan 26 mg 1 tab PO BID #180 tabs 05/09/22 11/24/22 11/24/22 Rx tablet (Entresto) spironolactone 25 mg tablet 25 mg PO DAILY #90 tabs 05/19/22 11/24/22 11/24/22 Rx furosemide 20 mg tablet 20 mg PO DAILY #90 tabs 05/25/22 11/24/22 11/24/22 Rx acetaminophen 325 mg tablet 325 mg PO QID PRN Pain 11/24/22 11/24/22 Unknown History amlodipine 5 mg tablet 5 mg PO DAILY 11/24/22 11/24/22 11/24/22 History lisinopril 40 mg tablet 40 mg PO DAILY 11/24/22 11/24/22 11/24/22 History Allergies Allergy/AdvReac Type Severity Reaction Status Date / Time No Known Allergies Allergy Verified 11/24/22 14:50 Current Medications Generic Name Dose Route Start Last Admin Trade Name Freq PRN Reason Stop Dose Admin Amlodipine Besylate 5 mg 11/25/22 09:00 11/25/22 08:37 Amlodipine 5 Mg Tablet PO 5 mg DAILY KD Administration Aspirin 81 mg 11/25/22 09:00 11/25/22 08:37 Aspirin 81 Mg Ec Tablet PO 81 mg DAILY KD Administration Enoxaparin Sodium 90 mg 11/25/22 08:00 11/25/22 08:37 Enoxaparin 100 Mg/Ml Syringe SUBCUT 90 mg Q12H KD Administration Pantoprazole Sodium 40 mg 11/25/22 09:00 11/25/22 08:[address] 40 Mg Tablet PO 40 mg DAILY KD Administration Spironolactone 25 mg 11/25/22 09:00 11/25/22 08:37 Spironolactone 25 Mg Tablet PO 25 mg DAILY KD Administration Tamsulosin HCl 0.4 mg 11/25/22 09:00 11/25/22 08:37 Tamsulosin 0.4 Mg Capsule PO 0.4 mg DAILY KD Administration PFSH Acute PFSH: Medical History BPH (benign prostatic hyperplasia) HTN (hypertension) Varicose veins of both lower extremities Surgical History History of left knee replacement Family History Mother , AT AGE 84 PANCREATIC CANCER Cancer Father , AT AGE 85 CHF/COLON CANCER Cancer CAD (coronary artery disease) Anesthesia complication Brother CAD (coronary artery disease) Other Diabetes Hyperlipidemia Denies family history of Clotting disorder Dementia Chronic kidney disease (CKD) Suicide Bleeding disorder Lung disease Stroke Social History Smoking and tobacco status: never smoked Alcohol intake: never Substance/Drug Use: never Housing: House Marital status: Current occupational status: retired Vitals/I&O/Wt Last Vital Signs Temp 98.6 F 11/24/22 14:48 Pulse 61 11/25/22 07:00 Resp 16 11/25/22 07:00 BP 106/61 11/25/22 07:00 Pulse Ox 92 11/25/22 07:00 O2 Del Method Room Air 11/25/22 06:00 11/24/22 11/25/22 11/25/22 22:59 06:59 14:59 Intake Total 1000 / 1000 Balance 1000 / 1000 Weight last 48 hrs Weight 210 lb Data 11/26/22 04:08 11/26/22 04:08 Other data: 12/17/21 Stress Test 1.? Myocardial perfusion imaging revealing extensive areas of myocardial ?scarring mostly in the distribution of the left anterior descending artery and ?the right coronary artery with the small areas of possible umer-infarction ?ischemia. ?2.? Diminished LV ejection fraction of 30%. ?3.? Multiple wall motion normalities as mentioned above. ?4.? Moderately dilated LV cavity with an end-systolic volume of 138 mL. 1.? The EKG was found to Lexiscan infusion is uninterpretable due to baseline changes 2. No LexiScan induced chest pain or cardiac arrhythmia 3. Normal blood pressure and heart rate response ?No similar previous studies are available for comparison 12/21/21 Echo Diffuse hypokinesia of the septum, anteroseptum and the LV apex.? ?LV ejection fraction around 40%. ?Thickened aortic and mitral valves. ?Mild mitral annular calcification. ? Trace to mild aortic valve regurgitation. ?There is no pericardial effusion. ?Technically difficult study because of the poor ultrasonic ?window. ?No similar previous studies are available for comparison A&P Assessment and plan (1) Acute non-ST elevation myocardial infarction (NSTEMI): Given progressively worsening symptoms, will set up for [facility] -continue ASA and received lovenox this am. DAPT based on C findings -Mg replaced. Risks and benefits were discussed with the patients. Alternate management opt ions were discussed with the patient as well. Possible complications including risk of heart attack stroke and , coronary perforation, dissection,arrhythmia, cardiac tamponade in urgent CABG were discussed with the patient as well. Plan is to proceed for the procedure at the earliest. (2) Atherosclerotic heart disease of [place] coronary artery with unstable angina pectoris: (3) Dyslipidemia: (4) T2DM (type 2 diabetes mellitus): (5) Ischemic cardiomyopathy: Coding Level of Care Code 20874 Diagnoses Acute non-ST elevation myocardial infarction (NSTEMI) I21.4 Atherosclerotic heart disease of [place] coronary artery with unstable angina pectoris I25.110 Dyslipidemia E78.5 T2DM (type 2 diabetes mellitus) E11.9 Ischemic cardiomyopathy I25.5
--- NOTE | 2022-11-25 09:00 | PM.PN ---
Subjective Subjective: Overnight labs and H&P reviewed. No acute interim events. No current chest pain. Patient plan for cardiac cath later today. Medications: Reviewed: Yes Vitals/I&O/Wt Last Vital Signs Temp 98.6 F 11/24/22 14:48 Pulse 58 L 11/25/22 16:45 Resp 11 L 11/25/22 16:45 BP 103/48 11/25/22 16:45 Pulse Ox 93 11/25/22 16:45 O2 Del Method Room Air 11/25/22 06:00 11/25/22 11/25/22 11/25/22 06:59 14:59 22:59 Intake Total 530 / 530 Balance 530 / 530 Weight last 48 hrs Weight 95.254 kg Physical Exam Narrative: EXAM NARRATIVE: General: No acute distress, AO x3, NC oxygen supplementation HEENT: PERRLA, pupils bilaterally equal and reactive Chest:Bronchial breath sounds b/l ,decreased air entry, equal good air entry bilaterally, no more fine basal crackles CVS: S1-S2 regular, no murmurs, no tachycardia, no gallops, no rubs Abdomen: Soft, nontender, no organomegaly, bowel sounds present, morbidly obese Neuro: No focal deficits, no facial deformity, AO x3, power 5/5 in all limbs Data 11/25/22 04:55 11/25/22 04:55 A&P Assessment and plan (1) Acute non-ST elevation myocardial infarction (NSTEMI): 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 Clinical impression that of NSTEMI Continue lovenox 1mg/kg every 12 hrs Continue ASA, statin Cardiology consult appreciated, plan to be taken to cardiac Certified Indoor Environmentalist later today. (2) Atherosclerotic heart disease of [place] coronary artery with unstable angina pectoris: (3) T2DM (type 2 diabetes mellitus): Insulin sliding scale to continue Attestations Medical Necessity Statement*: NSTEMI, cardiac cath today, cardiology assessment Coding Level of Care Code Acute Code for [facility] Diagnoses Acute non-ST elevation myocardial infarction (NSTEMI) I21.4 Atherosclerotic heart disease of [place] coronary artery with unstable angina pectoris I25.110 T2DM (type 2 diabetes mellitus) E11.9
--- NOTE | 2022-11-25 09:27 | XACV_ITS ---
Exam Room: 2 Ht: 180 cm Wt: 95 kg BSA: 2.21 m2 Gender: Male : 1935 Exam Priority: Routine Procedure(s): Procedure Description: Diagnostic procedure Procedure Description: PCI procedure Procedure Description: Drug Eluting Coronary Stent Procedure Description: PTCA Procedure Description: Coronary Angiography Procedure Description: Pressure Wire Diagnostic Cath Status: Urgent Diagnostic Findings * Left Main has no significant disease. * Circumflex has no significant disease. OM1 has 60% stenosis.. * Proximal Left Anterior Descending: chronic total occlusion, KEVAN: 0 flow. * Right Coronary Artery is a small sized nondominant vessel with diffuse disease.. * Ramus: obstructive 70% stenosis, KEVAN: 3 flow. * Coronary angiography shows left dominance. PCI Status: Urgent PCI Indication: NSTE - ACS Interventional Findings * Ramus: 70% stenosis treated with a AB TREK 2.50X12 RX BALLOON, and MDFranklin Larson ELLIOTT 2.75X18 CRISTINE. 0% residual stenosis, KEVAN: 3 flow. * PROCEDURE DETAIL: We engaged left main artery with XB 3.5 guide catheter. IV heparin was administered to maintain anticoagulation. After normalization, IFR wire was advanced to OM vessel. Nonischemic value of 0.93 was obtained. Medical therapy was decided. We then turned our attention to the ramus artery. iFR wire was advanced into distal ramus artery. iFR value of 0.84 was obtained that was significantly ischemic. We decided to proceed with PCI. Stenosis was predilated with a 2.5 x 12 mm semicompliant balloon. This was followed by placement of 2.75 x 18 mm resolute Wysox drug-eluting stent. At this time final angiogram was performed that showed excellent stent expansion, KEVAN-3 flow and no residual stenosis. Guidewire and guide catheter were removed. Patient left the Wax Bleacher in a stable condition.. Conclusions 1. Severe multivessel CAD. Chronic total occlusion of LAD noted. Severe ramus artery stenosis confirmed with IFR. S/p successful revascularization with CRISTINE x1.. 2. Ramus was treated with a Balloon, and Drug Eluting Stent. Recommendations * Aggressive risk factor modification. * Dual antiplatelet therapy with aspirin and Plavix for at least 1 year. * High intensity statin therapy. * Outpatient cardiology follow-up in 2 weeks. Interventional RX Recommendation: PCI w/o planned CABG Diagnostic RX Recommendation: PCI w/o planned CABG Anticoagulation: Heparin Pressures Phase:Rest AO : 90 / 63 ( 77 ) @ 2:19:00 PM 112 / 55 ( 73 ) @ 2:23:00 PM 111 / 55 ( 73 ) @ 2:23:00 PM 87 / 57 ( 71 ) @ 2:32:00 PM 96 / 62 ( 78 ) @ 2:39:00 PM LV : 103 / -3 / 9 @ 2:23:00 PM 104 / -3 / 9 @ 2:23:00 PM Valves Phase:DefaultPhase AV : 0.0 @ 1:53:37 PM 0.0 @ 1:53:37 PM AV Mean Gradient: 0.0 @ 1:53:37 PM 0.0 @ 1:53:37 PM Clinical Evaluation EBL: 5mL-10mL Procedural Details Procedure Consent Obtained. Admit Source: In Patient. Pre-Procedure Time Out. Identified patient by full name and date of as verbalized by the patient/guarantor. Does the consent match the physician's order: Yes. Accurate & Complete Informed Consent: Yes. Inpatient/Outpatient History & Physical on Chart: Yes. If H&P is completed, is and addenduem needed: No; If yes, is the addendum complete: N/A. Visualize and Verify Site with Patient/Guarantor: N/A. Relevant Radiology Images available: N/A. The risks, benefits, and alternatives of sedation and/or procedure were discussed by physician. The patient agrees to continue. Procedure started. [facility] Clinical Fraility Score: 4: Vulnerable. Wax Bleacher Indications: NSTEMI. Chest Pain Symptom Assessment: Typical Angina Symptoms. Cardiovascular Instability: N/A,. Correct patient, site and procedure confirmed by cath team. Current diagnosis: NSTEMI. PERRLA. Strong, equal hand home health registered nurse bilaterally. Lungs clear x 5 lobes. IV Site on Arrival: 20 gauge in the left anticubital. IV Fluids: 0.9% NaCl at KVO. 0 mL infused prior to blood bank laboratory professional. Pre Procedural Pulses: bilateral radial was 2+. Oxygen started at 2liters/min via nasal canula. right groin was prepped with chloroprep then draped in the usual sterile fashion. right radial was prepped with chloroprep then draped in the usual sterile fashion. Physician notified. Baseline sample Acquired. HR: 73 BPM. Physician arrived. Physician scrubbed in. Immediate Pre-Procedure Time Out. Correct Patient: Yes; Correct Procedure: Yes; Correct Site: Yes; Correct Patient Position: Yes; Correct Supplies: Yes; Dried Flammable Prep: Yes; Blood Products Available: N/A;. Marguerite Ratlifferton was relieved by Aditi Malagon RN as monitoring person. Lidocaine 1% infiltrated to the right radial. Arterial access obtained. A 5 cymro TIG catheter in over wire. Multiple views taken of left coronary artery. Catheter redirected to the RCA. Multiple views taken of right coronary artery. EDP Sample taken: LV 103/-4,9; HR: 73 BPM; SpO2: 96%. Pullback taken: LV 104/-4,9; AO 112/55(73); Mean: 0mmHg, Peak to Peak: 0mmHg, SEP: 7sec/min; HR: 74 BPM; SpO2: 96%. Catheter out. 6 cymro XB 3.5 guide catheter was inserted over the wire. IFR guidewire was advanced through the guide catheter to lesion in the OM. Fractional flow reserve measurements obtained. IFR spot of OM 0.93. IFR pullback 0.94. IFR redirected to the Ramus. Fractional flow reserve measurements obtained. IFR spot 0.84 of Ramus. Balloon inserted to lesion in the Ramus. Inflation number : 1 A AB TREK 2.50X12 RX BALLOON was prepped and advanced across the Ramus , then inflated to 12 CEDRIC for 0:12 seconds. Inflation number: 2 The AB TREK 2.50X12 RX BALLOON was reinflated across the Ramus, to 12 CEDRIC for 0:07 seconds. Balloon out. Results checked. Inflation Number : 3 A MDT R ELLIOTT 2.75X18 CRISTINE -Lot Number# [id number] Exp 03/02/2024 was prepped and advanced across the Ramus. The stent was deployed at 12 CEDRIC for 0:16 seconds. Inflation number: 4 The stent balloon was then re-inflated across the Ramus to 12 CEDRIC for 0:13 seconds. Results checked. Stent balloon out over wire. Results checked. Guide catheter and wire out. A TR Band was successful obtaining hemostatsis at the Right Radial artery insertion site. Post Procedure: Pulses reassessed and unchanged. PERRLA. Strong, equal hand home health registered nurse bilaterally. No VTE prophylaxis required. Medication's Wasted: Lidocaine 1% = 3 mL. Total IV fluids: 62 mL. Medication's Wasted: Nitro = 49.6 mg. Medication's Wasted: Heparin = 1000 u. Post-op diagnosis: CAD of Ramus, S/P stenting x1. Complications: none. Estimated blood loss: 5mL-10mL. Responsiveness - Normal response to verbal stimuli; alert and oriented, PERRLA. Airway - Unaffected, no intervention required; spontaneous ventilation. Circulation: W/N/L, pulses unchanged. Nausea/Vomiting: No. Procedure completed. Patient transferred by bed to 1st floor. Vital chart was stopped. Access Site Site: Right Radial artery Sheath Size: 6 Fr Hemostasis Method: TR Band Hemostasis Success: Successful Procedure Medications Start: 12:58 PM Stop: 12:58 PM Medication: Fentanyl Amount: 50 mcg Route: I.V. Start: 1:01 PM Stop: 1:01 PM Medication: Versed Amount: 1 mg Start: 1:14 PM Stop: 1:14 PM Medication: Nitrogylcerin Amount: 200 mcg Route: I.A. Start: 1:43 PM Stop: 1:43 PM Medication: Nitrogylcerin Amount: 200 mcg Route: I.A. Start: 1:30 PM Stop: 1:30 PM Medication: Versed Amount: 1 mg Start: 1:30 PM Stop: 1:30 PM Medication: Fentanyl Amount: 25 mcg Route: I.V. I, the attending physician, have reviewed and verified all procedure medications. Yes, all medications given per verbal order History/Risk Factors Hypertension: Yes Dyslipidemia: No Peripheral Arterial Disease (PAD): No Myocardial Infarction (ND): No Obesity: No Renal Disease: No Tobacco Use: Never Prior Interventions PCI: No CABG: No Valve Surgery: No Report Signatures Finalized by Harvey Rutledge MD on 11/30/2022 06:04 PM
[2022-11-25] MEDS: diphenhydrAMINE 50 mg Capsule PO (11:14)
[2022-11-25] MEDS: magnesium sulfate premix 2 GM/50 ML PIGGYBACK IV (11:14)
[2022-11-25] MEDS: aspirin 325 mg Tablet PO (11:14)
[2022-11-25] MEDS: sodium chloride 0.9% 1,000 ML 50 ML IV (11:15)
--- NOTE | 2022-11-25 13:00 | W.PM.OPSUD ---
Surgery/Procedure H&P Update DATE OF PROCEDURE: November 25, 2022 DATE H&P PERFORMED: 11/25/22 H&P UPDATE INFORMATION: I have reviewed H&P completed within last 30 days, I have examined patient prior to procedure and No changes to prior documentation PREOP DIAGNOSIS: NSTEMI PRIMARY INDICATION FOR PROCEDURE: NSTEMI PLANNED PROCEDURE: Left heart cath with possible percutaneous coronary intervention PATIENT REASSESSED PRIOR TO SEDATION, WITH NO CHANGE NOTED: Yes PHYSICAL EXAM: alert, oriented x 3, clear to auscultation bilaterally and regular rate & rhythm AIRWAY EVAL/ANESTHESIA PLAN: normal airway, ASA III, Monitored Anesthesia, Local Anesthesia, Risks, benefits & alternatives of sedation and/or procedure discussed and Patient agrees to continue as planned
--- NOTE | 2022-11-25 14:00 | PC.NURSE ---
TR band intact no hematoma or oozing present. Patient educated regarding activity restriction. Nurse will continue to monitor.
[2022-11-25] MEDS: sodium chloride 0.9% 1,000 ML 100 ML IV (16:15)
--- NOTE | 2022-11-25 20:00 | PC.NURSE ---
Tr Band off at 1999. Dressing applied. No bleeding or hematoma noted.
[2022-11-25] MEDS: finasteride 5 mg Tablet PO (21:22)
[2022-11-25] MEDS: atorvastatin 40 mg Tablet 20 MG PO (21:22)
--- NOTE | 2022-11-25 23:05 | USCV_ITS ---
Diogenes Mustafa Age: 87 Gender: M : 1935 Exam Date: 11/25/2022 03:25 Ordering Phys: Michelle Hester MD Technologist: NANCY Exam Location[place] [facility] [place] Indication: NSTEMI, history of [place] 2021, history of ischemic CM, DM2, CERVANTES. No history of cardiac intervention per patient. BP: 124 / 53 HR: 68 Rhythm: Sinus Technical Quality: Adequate MEASUREMENTS (Male / Female) Normal Values 2D ECHO LV Diastolic Diameter PLAX 4.1 cm 4.2 - 5.9 / 3.9 - 5.3 cm LV Systolic Diameter PLAX 3.2 cm IVS Diastolic Thickness 1.8 cm 0.6 - 1.0 / 0.6 - 0.9 cm IVS Systolic Thickness 2.3 cm LVPW Diastolic Thickness 1.3 cm 0.6 - 1.0 / 0.6 - 0.9 cm LVPW Systolic Thickness 1.7 cm LVOT Diameter 1.8 cm LV Ejection Fraction 2D Teich 43.8 % LV Ejection Fraction MOD 2C 29.5 % LV Ejection Fraction 2C AL 29.2 % LA Diameter 4.4 cm LA Width 2.9 cm LA Height 4.8 cm RA Width 3.4 cm RA Height 4.8 cm Aorta at Sinotubular Diameter 3.2 cm IVC Diameter 1.6 cm M-MODE Aortic Annulus Diameter 3.6 cm LA Ao Ratio MM 1.3 MV E Point Septal Separation 0.5 cm DOPPLER AV Peak Velocity 115.0 cm/s LVOT Peak Velocity 84.0 cm/s AV Area Cont Eq vti 1.9 cm squared AV Area Cont Eq pk 1.9 cm squared MV Peak Velocity 123.0 cm/s MV Area PHT 2.6 cm squared Mitral E to A Ratio 0.5 MV E' Velocity 30.5 cm/s Mitral E to MV E' Ratio 15.5 Mitral E to LV E' Lateral Ratio 14.7 Mitral E to LV E' Septal Ratio 16.9 TR Peak Velocity 172.0 cm/s TR Peak Gradient 11.8 mmHg TV Peak E Velocity 31.0 cm/s Right Atrial Pressure 5.0 mmHg Pulmonary Artery Systolic Pressu 16.8 mmHg PV Peak Velocity 80.0 cm/s RV Acceleration Time 0.1 s RV Ejection Time 0.3 s RV AcT/ET 0.2 FINDINGS Left Ventricle Normal left ventricular cavity size. Normal left ventricular wall thickness. Moderately decreased left ventricular systolic functionleft ventricular ejection fraction is estimated at 35 %. There is severe hypokinesis of mid to apical anteroseptal, mid inferoseptal, mid to apical anterior, apical septal and apical inferior pulido. Grade I diastolic dysfunction (abnormal relaxation filling pattern), normal to mildly elevated filling pressures. Right Ventricle Normal right ventricular size and systolic function. Right Atrium Normal right atrial size. Left Atrium Normal left atrial size. Mitral Valve Structurally normal mitral valve. No mitral valve stenosis. Trace mitral valve regurgitation. Aortic Valve Structurally normal trileaflet aortic valve. No aortic valve stenosis. Mild aortic valve regurgitation. Tricuspid Valve Structurally normal tricuspid valve. Trace tricuspid valve regurgitation. Pulmonic Valve Structurally normal pulmonic valve. No pulmonary valve stenosis. Trace pulmonary valve regurgitation. Pericardium No pericardial effusion. Aorta Normal size aortic root and proximal ascending aorta. IVC Normal IVC dimension with >50% respiratory change of the inferior vena cava. CONCLUSIONS 1. Normal left ventricular cavity size. Moderately decreased left ventricular systolic functionleft ventricular ejection fraction is estimated at 35 %. There is severe hypokinesis of mid to apical anteroseptal, mid inferoseptal, mid to apical anterior, apical septal and apical inferior pulido. Grade I diastolic dysfunction (abnormal relaxation filling pattern), normal to mildly elevated filling pressures. 2. Mild aortic valve regurgitation. Kaitlin Zambrano MD (Electronically Signed) Final Date: 03 Dec 2022 14:12 S
[2022-11-26] VITALS (15 sets, daily range): BP systolic 119–124; BP diastolic 57–72; PULSE 60–105; RESP 19–31; O2SAT 92–94
[2022-11-26 04:24] LABS: Basophils % 0.7 %; Eosinophils # 0.2 10^3/uL (0.0-0.8); Eosinophils % 3.1 %; Hematocrit 37.1 % (42.0-52.0); Lymphocytes # 1.8 10^3/uL (0.8-4.8); Lymphocytes % 30.2 %; Mean Corpuscular HGB Conc 32.3 g/dL (30.0-36.0); Mean Corpuscular Hemoglobin 31.5 pg (28.0-34.0); Mean Corpuscular Volume 97.4 fl (80-94); Mean Platelet Volume 10.7 fL (7.4-10.4); Monocytes # 0.3 10^3/uL (0.2-0.9); Monocytes % 5.5 %; Neutrophils # 3.53 10^3/uL (1.8-7.7); Neutrophils % 60.2 %; Nucleated Red Blood Cells % 0 %; Platelet Count 152 10^3/cmm (130-400); Red Blood Count 3.81 10^6/uL (4.1-5.3); Red Cell Distribution Width 13.6 % (12.1-15.1); White Blood Count 5.9 10^3/uL (4.0-10.0)
[2022-11-26 04:43] LABS: Alanine Aminotransferase 7 U/L (0-41); Albumin Level 3.2 g/dL (3.5-5.2); Alkaline Phosphatase 81 U/L (40-130); Anion Gap 12.1 (5-19); Aspartate Amino Transferase 13 U/L (0-40); Blood Urea Nitrogen 17 mg/dL (8-23); Calcium 8.4 mg/dL (8.5-10.5); Carbon Dioxide 24 mmol/L (22-29); Chloride 106 mmol/L (98-107); Globulin 2.9 g/dL (1.3-4.6); Glucose 158 mg/dL (65-115); Osmolality Calculated 291 mOsm/kg (285-295); Potassium 4.1 mmol/L (3.5-5.1); Sodium 138 mmol/L (136-145); Total Bilirubin 0.3 mg/dL (0.15-1.2); Total Protein 6.1 g/dL (6.6-8.7)
--- NOTE | 2022-11-26 08:26 | PM.PN ---
Subjective Subjective: Patient is doing well. 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 He underwent successful revascularization of ramus artery with DESX 1. Vitals/I&O/Wt Last Vital Signs Temp 98.9 F 11/25/22 23:54 Pulse 66 11/26/22 05:12 Resp 22 H 11/26/22 03:28 BP 119/72 11/26/22 03:28 Pulse Ox 92 11/26/22 03:28 O2 Del Method Room Air 11/26/22 03:28 11/25/22 11/26/22 11/26/22 22:59 06:59 14:59 Intake Total 1037.5 / 1037.5 1000 / 2037.5 Output Total 200 / 200 275 / 475 Balance 837.5 / 837.5 725 / 1562.5 Weight last 48 hrs Weight 210 lb Physical Exam Narrative: GENERAL: Patient is alert, awake and oriented x3. [] NECK: No jugular vein distension. [] HEENT: No cyanosis. No icterus. No pallor. [] HEART: Regular S1 and S2. No murmur, rub or gallop. [] LUNGS: Clear to auscultate bilaterally. [] CENTRAL NERVOUS SYSTEM: Grossly nonfocal. [] EXTREMITIES: Lower extremities with 1+ edema bilaterally. Data 11/26/22 04:08 11/26/22 04:08 A&P Assessment and plan (1) Acute non-ST elevation myocardial infarction (NSTEMI): Coronary angiogram showed moderate to severe ramus artery stenosis. iFR showed ischemic value of 0.84. He underwent successful revascularization of DESx 1. Continue aspirin and plavic for atleast 1 year High intensity statin therapy Patient is stable to be discharged from cardiology standpoint. (2) Atherosclerotic heart disease of [place] coronary artery with unstable angina pectoris: (3) Dyslipidemia: (4) T2DM (type 2 diabetes mellitus): (5) Ischemic cardiomyopathy: Attestations Medical Necessity Statement*: Care expected to cross 2 midnights. Coding Level of Care Code Acute Code for [facility] Diagnoses Acute non-ST elevation myocardial infarction (NSTEMI) I21.4 Atherosclerotic heart disease of [place] coronary artery with unstable angina pectoris I25.110 Dyslipidemia E78.5 T2DM (type 2 diabetes mellitus) E11.9 Ischemic cardiomyopathy I25.5
--- NOTE | 2022-11-26 09:37 | PM.DCS ---
Discharge Providers Date of Admission: 11/24/22 19:34 Date of Discharge: November 26, 2022 Attending Provider at Admission: Michelle Hester MD Attending Provider at Discharge: Norbert Vo MD Consults: Cardiology: Dr. Zambrano/Dr. 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: Status: Acute (3) Dyslipidemia: Status: Acute (4) T2DM (type 2 diabetes mellitus): Status: Acute (5) Ischemic cardiomyopathy: Status: Acute Reason for Visit Reason for Visit: chest pain Hospital Course Hospital Course Diogenes Mustafa is a 87 year old male with PMHx of CAD ([facility] about 1and 1/2 years ago at [facility] : 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 The episodes are more frequent and have been lasting longer. EKG with sinus rhythm, first degree AV block and LBBB. Troponin 128--> 138-->134. Patient was admitted for further evaluation and management of non-ST elevation NM. Cardiology was consulted. She was started on treatment as per ACS protocol. He underwent cardiac angiogram on 11/25 that showed WORKFORCE DEVELOPMENT VICE PRESIDENT of LAD, moderate disease of LCx that was IFR negative. He underwent successful revascularization of ramus artery with CRISTINE x1. Patient tolerated the procedure well. Echocardiogram was done prior to discharge but results are not currently available. He has been discharged home on oral aspirin, Plavix and statins along with lisinopril 20 mg daily. He is to follow-up with his primary care provider within next 1 week and with aKrli Amin/nurse practitioner from cardiology within next 1 week. Physical Exam Narrative: EXAM NARRATIVE: General: No acute distress, AO x3, HEENT: PERRLA, pupils bilaterally equal and reactive Chest:Bronchial breath sounds b/l ,decreased air entry, equal good air entry bilaterally, no more fine basal crackles CVS: S1-S2 regular, no murmurs, no tachycardia, no gallops, no rubs Abdomen: Soft, nontender, no organomegaly, bowel sounds present, morbidly obese Neuro: No focal deficits, no facial deformity, AO x3, power 5/5 in all limbs Discharge Data Studies Completed and Pending Completed Studies During Hospitalization Category Date Time Status XR chest 1V portable [id number] Stat Exams 11/24/22 15:01 Completed Pending at discharge Category Date Time Status 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 echo complete* [id number] Routine Ultrasound 11/25/22 23:05 Taken Radiology Impressions Chest X-Ray 11/24/22 15:01 Impression: Cardiomegaly and atherosclerosis. Laboratory Results WBC 5.9 10^3/uL (4.0-10.0) 11/26/22 04:08 RBC 3.81 10^6/uL (4.1-5.3) L 11/26/22 04:08 Hgb 12.0 g/dL (11.7-16.6) 11/26/22 04:08 Hct 37.1 % (42.0-52.0) L 11/26/22 04:08 MCV 97.4 fl (80-94) H 11/26/22 04:08 MCH 31.5 pg (28.0-34.0) 11/26/22 04:08 MCHC 32.3 g/dL (30.0-36.0) 11/26/22 04:08 RDW 13.6 % (12.1-15.1) 11/26/22 04:08 Plt Count 152 10^3/cmm (130-400) 11/26/22 04:08 MPV 10.7 fL (7.4-10.4) H 11/26/22 04:08 Neut % (Auto) 60.2 % 11/26/22 04:08 Lymph % (Auto) 30.2 % 11/26/22 04:08 [place] % (Auto) 5.5 % 11/26/22 04:08 Eos % (Auto) 3.1 % 11/26/22 04:08 Baso % (Auto) 0.7 % 11/26/22 04:08 Neut # (Auto) 3.53 10^3/uL (1.8-7.7) 11/26/22 04:08 Lymph # (Auto) 1.8 10^3/uL (0.8-4.8) 11/26/22 04:08 [place] # (Auto) 0.3 10^3/uL (0.2-0.9) 11/26/22 04:08 Eos # (Auto) 0.2 10^3/uL (0.0-0.8) 11/26/22 04:08 Baso # (Auto) 0.0 10^3/uL (0.0-0.1) 11/26/22 04:08 Nucleated RBC % (auto) 0 % 11/26/22 04:08 Nucleated RBCs # 0.0 /100WBC 11/26/22 04:08 Sodium 138 mmol/L (136-145) 11/26/22 04:08 Potassium 4.1 mmol/L (3.5-5.1) 11/26/22 04:08 Chloride 106 mmol/L (98-107) 11/26/22 04:08 Carbon Dioxide 24 mmol/L (22-29) 11/26/22 04:08 Anion Gap 12.1 (5-19) 11/26/22 04:08 BUN 17 mg/dL (8-23) 11/26/22 04:08 Creatinine 1.4 mg/dL (0.7-1.2) H 11/26/22 04:08 GFR Calculation Not Reportable 11/26/22 04:08 Glucose 158 mg/dL (65-115) H 11/26/22 04:08 Calculated Osmolality 291 mOsm/kg (285-295) 11/26/22 04:08 Calcium 8.4 mg/dL (8.5-10.5) L 11/26/22 04:08 Magnesium 1.5 mg/dL (1.7-2.3) L 11/25/22 04:55 Total Bilirubin 0.3 mg/dL (0.15-1.2) 11/26/22 04:08 AST 13 U/L (0-40) 11/26/22 04:08 ALT 7 U/L (0-41) 11/26/22 04:08 Alkaline Phosphatase 81 U/L (40-130) 11/26/22 04:08 Troponin T Baseline 128 ng/L (0-15) H* 11/24/22 15:10 Troponin T 120 Minute 138.1 ng/L (0-15) H 11/24/22 17:01 Delta Troponin T 10.1 ABS# (0-10) H* 11/24/22 17:01 Troponin T Hi Sens 6Hr 133.7 ng/L (0-15) H 11/24/22 21:07 Troponin T Hi Sens 6Hr Delta 5.7 ng/L (0-12) 11/24/22 21:07 NT-Pro-B Natriuret Pep 726 pg/mL (0-450) H 11/24/22 15:10 Total Protein 6.1 g/dL (6.6-8.7) L 11/26/22 04:08 Albumin 3.2 g/dL (3.5-5.2) L 11/26/22 04:08 Globulin 2.9 g/dL (1.3-4.6) 11/26/22 04:08 SARS-CoV-2 Ag (Rapid) negative 11/24/22 15:45 Vitals Last Vital Signs Temp 98.9 F 11/25/22 23:54 Pulse 66 11/26/22 05:12 Resp 22 H 11/26/22 03:28 BP 119/72 11/26/22 03:28 Pulse Ox 92 11/26/22 03:28 O2 Del Method Room Air 11/26/22 03:28 Discharge Plan Discharge Patient Disposition: Home Condition: Stable Prescriptions: New atorvastatin 40 mg Tablet 40 mg PO BEDTIME Qty: 30 0RF clopidogrel 75 mg Tablet 75 mg PO DAILY Qty: 30 0RF aspirin 81 mg Tablet,Delayed Release (Dr/Ec) 81 mg PO DAILY Qty: 30 0RF pantoprazole 40 mg Tablet,Delayed Release (Dr/Ec) 40 mg PO DAILY Qty: 30 0RF Continued metformin 500 mg tablet 500 mg PO DAILY tamsulosin 0.4 mg capsule 0.4 mg PO DAILY furosemide 20 mg tablet 20 mg PO DAILY Qty: 90 3RF finasteride 5 mg Tablet 5 mg PO BEDTIME 30 Days Qty: 30 2RF acetaminophen 325 mg Tablet 325 mg PO QID PRN (Reason: Pain) Changed lisinopril 40 mg tablet 20 mg PO DAILY Qty: 30 0RF Discontinued Entresto 24-26 mg tablet 1 tab PO BID Qty: 180 3RF Hold Instructions: out of med- getting financial assistance spironolactone 25 mg tablet 25 mg PO DAILY Qty: 90 3RF atorvastatin 10 mg tablet 10 mg PO BEDTIME amlodipine 5 mg tablet 5 mg PO DAILY Discharge Orders: Discharge Order (Routine); Ordered 11/26/22 Ordered By: Norbert Vo Referrals: Marquez Ross MD [Primary Care Provider] - 7-10 days (Please call Dr. Ross's Office on Monday at [phone] to schedule a follow up appointment for 7-10 days. Thank you.) Karli Amin FNP [Nurse Practitioner] - 11/29/22 10:45 am Discharge Diet: Cardiac Discharge Activity: Resume usual activity and Increase activity as tolerated Patient Instructions: Aspirin (By mouth) (Kermit Extra Strength, Kermit Aspirin Children's,..., Atorvastatin (By mouth) (Lipitor), Clopidogrel (By mouth) (Plavix), Pantoprazole (By mouth) (Protonix), Heart Attack (DC), Opioid Safety, Post Angiogram Home Care Instructions, Post Heart Attack Stoplight Activity Restrictions/Additional Instructions: Multiple antihypertensives have been changed. Do not take amlodipine, Entresto or spironolactone for now. Please check your blood pressure daily at home and maintain a blood pressure diary and follow-up with a primary care provider within next 1 week for further adjustment of antihypertensive. Please follow-up with Karli Amin/nurse practitioner from cardiology onsite appointment for further evaluation or adjustment of medications. Dose of lisinopril has been changed to 20 mg daily and atorvastatin has been changed to 40 mg oral daily. Continue taking baby aspirin and Plavix daily. Discharge Attestations Time Spent in Discharge Care*: greater than 30 min Specific Discharge Activities: educating patient, discussing with pcp/other providers, discussing with manager case management/social workers/dc planners, documenting/other paperwork and evaluating patient/reviewing data Status at Discharge: Cognitive status at discharge: cognitively intact, Behavioral status at discharge: cooperative, Functional status at discharge: independent ambulation, Overall status at discharge: patient is back to baseline Quality Metrics Clinical Quality Measures [ No reported AMI, CVA or VTE this stay] Coding Level of Care Code 17173 Total time (in minutes) for Discharge: 50 Diagnoses Acute non-ST elevation myocardial infarction (NSTEMI) I21.4 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
[2022-11-26] MEDS: clopidogrel 75 mg Tablet PO (09:46)
[2022-11-26] MEDS: tamsulosin 0.4 mg Capsule PO (09:46)
[2022-11-26] MEDS: pantoprazole DR 40 mg Tablet PO (09:46)
[2022-11-26] MEDS: aspirin 81 mg EC Tablet PO (09:46)
[2022-11-26 10:07] LABS: Chol HDL Ratio 3.43 mg/dL (1.0-5.00); Cholesterol 96 mg/dL (0-200); HDL Cholesterol 28 mg/dL (60-100); LDL Cholesterol Calculated 51 mg/dL (50-129); Triglycerides 83 mg/dL (0-150); VLDL Cholestrol Calculation 17 mg/dL (0-30)
[2022-11-26 10:17] LABS: Estmated Average Glucose 169; Hemoglobin A1C 7.5 % (4.0-6.0)
--- NOTE | 2022-11-26 12:22 | PC.NURSE ---
discharge instructions given and explained.pt verb understanding of instructions.discharged ambulatory to exit at this time.daughter to drive pt home
== END 2022-11-26 12:23 | disposition home or self-care (01) | DRG 247 ==
LOC: ER 19:31 → ER IP 20:26 → CSU 11-25 07:54
PROVIDERS: Internal Medicine; Admitting Provider Student in an Organized Health Care Education/Training Program; Emergency Provider Emergency Medicine; PCP Family Medicine; Visit Provider Student in an Organized Health Care Education/Training Program
PROC: 027034Z Dilation of Coronary Artery, One Artery with Drug-eluting Intraluminal Device, Percutaneous Approach (ICD-10-PCS; principal; 2022-11-25 12:30)
PROC: 027034Z Dilation of Coronary Artery, One Artery with Drug-eluting Intraluminal Device, Percutaneous Approach (ICD-10-PCS; 2022-11-25 12:30)
DX: I21.4 Non-ST elevation (NSTEMI) myocardial infarction (principal); I25.110 Atherosclerotic heart disease of native coronary artery with unstable angina pectoris; E78.5 Hyperlipidemia, unspecified; E11.51 Type 2 diabetes mellitus with diabetic peripheral angiopathy without gangrene; E11.22 Type 2 diabetes mellitus with diabetic chronic kidney disease; I12.9 Hypertensive chronic kidney disease with stage 1 through stage 4 chronic kidney disease, or unspecified chronic kidney disease; N18.9 Chronic kidney disease, unspecified; I25.5 Ischemic cardiomyopathy; N40.0 Benign prostatic hyperplasia without lower urinary tract symptoms; Z79.84 Long term (current) use of oral hypoglycemic drugs; Z96.652 Presence of left artificial knee joint; I44.0 Atrioventricular block, first degree; I44.7 Left bundle-branch block, unspecified
CPT/HCPCS: 36415; 71045; 80053; 80061; 83036; 83735; 83880; 84484; 85025; 87426; 93005; 93306; 93458; 93571; 93572; 96372; 99152; 99153; 99214; 99285; C1725; C1769; C1874; C1887; C1894; C9600; J1644; J1650; J2250; J3010; J3475; J3490; J7030; Q0163; Q9967

== ENCOUNTER → 2022-11-29 10:41 | Outpatient (BNVA) | payer MEDICARE, SELFPAY | PROVIDERS: PCP Family Medicine; Visit Provider Nurse Practitioner Family | DX: I95.9 Hypotension, unspecified (principal); I25.10 Atherosclerotic heart disease of native coronary artery without angina pectoris; I25.5 Ischemic cardiomyopathy; Z79.82 Long term (current) use of aspirin | CPT/HCPCS: 99214 ==

== ENCOUNTER → 2023-04-03 11:03 | Outpatient (BNVA) | payer MEDICARE, SELFPAY | PROVIDERS: PCP Family Medicine; Visit Provider Internal Medicine Cardiovascular Disease | DX: I25.10 Atherosclerotic heart disease of native coronary artery without angina pectoris (principal); I25.5 Ischemic cardiomyopathy; E78.5 Hyperlipidemia, unspecified; E11.9 Type 2 diabetes mellitus without complications; Z79.84 Long term (current) use of oral hypoglycemic drugs; I10 Essential (primary) hypertension | CPT/HCPCS: 99214 ==

== ENCOUNTER 2023-04-14 10:53 | Outpatient (CLI) | payer MEDICARE, SELFPAY ==
--- NOTE | 2023-04-14 11:04 | USCV_ITS ---
Diogenes Mustafa Age: 87 Gender: M : 1935 Exam Date: 04/14/2023 11:28 Ordering Phys: Lucy Moreau MD ([email or web address]) Technologist: LOR Exam Location: [facility] [place] Indication: follow up BP: 120 / 58 HR: 63 Rhythm: Sinus Technical Quality: Adequate MEASUREMENTS (Male / Female) Normal Values 2D ECHO LVOT Diameter 2.0 cm LV Ejection Fraction MOD 2C 43.5 % LV Ejection Fraction 2C AL 42.9 % LA Diameter 3.9 cm LA Width 3.0 cm LA Height 4.5 cm RA Width 3.1 cm RA Height 5.3 cm Aorta at Sinotubular Diameter 2.3 cm IVC Diameter 1.8 cm M-MODE Aortic Annulus Diameter 2.9 cm LA Ao Ratio MM 1.5 MV E Point Septal Separation 0.5 cm DOPPLER Right Atrial Pressure 3.0 mmHg FINDINGS Left Ventricle Severe hypokinesia of the mid and apical septum, apical inferior wall and anterior wall segments. Dyskinetic mid and apical anteroseptum. LV ejection fraction of 43% Right Ventricle Normal right ventricular size and systolic function. Right Atrium Normal right atrial size. Left Atrium The left atrium is normal in size. Mitral Valve No gross abnormalities noted Aortic Valve No gross abnormalities noted Tricuspid Valve No gross morphologic abnormalities noted Pulmonic Valve Pulmonic valve not well visualized. Pericardium Normal pericardium without effusion. Aorta Normal ascending aorta dimension. IVC The inferior vena cava appears normal. CONCLUSIONS Normal LV size with a diminished ejection fraction of 43%. Multiple wall motion normalities as mentioned above. There are no intracardiac masses. There is no pericardial effusion. Compared to the study from 11/25/2022, there is some improvement in the LV ejection fraction( from 35% to 43 % Dr Lucy Moreau MD FAC (Electronically Signed) Final Date: 15 April 2023 14:45 S
== END 2023-04-14 10:54 | disposition home or self-care (01) ==
PROVIDERS: PCP Family Medicine; Visit Provider Internal Medicine Cardiovascular Disease
DX: I25.5 Ischemic cardiomyopathy (principal)
CPT/HCPCS: 93308

== ENCOUNTER 2023-04-25 15:28 | Observation (INO) | payer MEDICARE, SELFPAY ==
--- NOTE | 2023-04-25 15:35 | CT_ITS ---
WS: [id number] CT HEAD TECHNIQUE: Noncontrast CT of the head obtained from the skullbase to the vertex. CLINICAL INFORMATION: STROKE LIKE SYMPTOMS COMPARISON: MRI 08/28/2020 DLP: [address] scans at [facility] use at least one of these dose optimization techniques: automated e xposure control; mA and/or kV adjustment per patient size (includes targeted exams where dose is matc hed to clinical indication); or iterative reconstruction. FINDINGS: No evidence of intracranial hemorrhage or mass effect. Ventricular system and basal cisterns are aponte nt. Moderate small vessel changes with moderate parenchymal volume loss. No extra-axial fluid collect ions. No evidence of mass or mass effect. 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 Mastoid air cells are well aerated. Mild sclerosis RIGHT mastoid. Paranasal sinuses are well aerated. Intracranial vascular calcification. Sebaceous cyst RIGHT scalp. IMPRESSION: 1. No evidence of intracranial hemorrhage or mass effect. 2. Moderate small vessel changes. Moderate parenchymal volume loss. 3. Intracranial vascular calcification. 4. No acute intracranial findings. LEFT message with Dr. Jordana PRATT at 04/25/2023 3:45 PM.
--- NOTE | 2023-04-25 15:37 | ECG_ITS ---
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 Measurements Intervals [place] Rate: 84 P: 48 WV: 182 QRS: 34 QRSD: 152 T: 155 QT: 383 QTc: 454 Interpretive Statements SINUS RHYTHM LEFT BUNDLE BRANCH BLOCK [120+ ms QRS DURATION, 80+ ms Q/S IN V1/V2, 85+ ms R IN I/aVL/V5/V6] Compared to ECG 11/24/2022 21:36:26 First degree AV block no longer present Electronically Signed On 04-25-2023 17:42:54 CDT by Kaitlin Zambrano M.D. [email or web address]
--- NOTE | 2023-04-25 15:37 | ECG_ITS ---
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 Measurements Intervals [place] Rate: 84 P: 48 AR: 182 QRS: 34 QRSD: 152 T: 155 QT: 383 QTc: 454 Interpretive Statements SINUS RHYTHM LEFT BUNDLE BRANCH BLOCK [120+ ms QRS DURATION, 80+ ms Q/S IN V1/V2, 85+ ms R IN I/aVL/V5/V6] Compared to ECG 11/24/2022 21:36:26 First degree AV block no longer present Electronically Signed On 04-25-2023 17:42:44 CDT by Kaitlin Zambrano M.D. [email or web address]
[2023-04-25 15:43] LABS: Glucose Point of Care 194 mg/dL (70-110)
[2023-04-25 15:45] VITALS: BP 135/83; PULSE 78; RESP 22; TEMP 36.4; O2SAT 95; BMI 32.1
[2023-04-25 15:52] LABS: Basophils % 0.6 %; Eosinophils # 0.2 10^3/uL (0.0-0.8); Eosinophils % 2.2 %; Hematocrit 44.6 % (37-53); Lymphocytes # 2.7 10^3/uL (0.8-4.8); Lymphocytes % 37.1 %; Mean Corpuscular Hemoglobin 31.6 pg (27-33); Mean Corpuscular Volume 95.9 fl (82-101); Mean Platelet Volume 10.3 fL (7.4-10.4); Monocytes # 0.4 10^3/uL (0.2-0.9); Monocytes % 4.8 %; Nucleated Red Blood Cells % 0 %; Platelet Count 214 10^3/cmm (157-399); Red Blood Count 4.65 10^6/uL (3.85-5.65); Red Cell Distribution Width 14.1 % (12.1-15.1); White Blood Count 7.27 10^3/uL (3.29-11.43)
[2023-04-25 16:04] LABS: Alanine Aminotransferase 10 U/L (0-41); Albumin Level 3.9 g/dL (3.5-5.2); Alkaline Phosphatase 110 U/L (40-130); Anion Gap 15.6 (5-19); Aspartate Amino Transferase 14 U/L (0-40); Blood Urea Nitrogen 17 mg/dL (8-23); Calcium 9.5 mg/dL (8.5-10.5); Carbon Dioxide 25 mmol/L (22-29); Chloride 101 mmol/L (98-107); Globulin 3.6 g/dL (1.3-4.6); Glucose 203 mg/dL (65-115); Osmolality Calculated 291 mOsm/kg (285-295); Potassium 4.6 mmol/L (3.5-5.1); Sodium 137 mmol/L (136-145); Total Bilirubin 0.3 mg/dL (0.15-1.2); Total Protein 7.5 g/dL (6.6-8.7)
--- NOTE | 2023-04-25 16:07 | CTR_ITS ---
PROCEDURE INFORMATION: Exam: CTA Head With Contrast, Arteriography Exam date and time: 04/25/2023 4:41 PM Age: 88 years old Clinical indication: Stroke-like symptoms; Altered mental status/memory loss; Additional info: AMS TECHNIQUE: Imaging protocol: Computed tomographic angiography of the head with contrast. Exam focused on the arteries. 3D rendering (Not supervised by radiologist): MIP and/or 3D reconstructed images were created by the technologist. Radiation optimization: All CT scans at this facility use at least one of these dose optimization techniques: automated exposure control; mA and/or kV adjustment per patient size (includes targeted exams where dose is matched to clinical indication); or iterative reconstruction. Contrast material: OMNI 350; Contrast volume: 100 ml; Contrast route: INTRAVENOUS (IV); REPORTING DATA: Count of CT and Cardiac NM exams in prior 12 months: This patient has received 0 known CTs and 0 known cardiac nuclear medicine studies in the 12 months prior to the current study. COMPARISON: 1. MR head wo/w con [id number] 04/27/2021 2:[address] head thrombolytic [id number] 04/25/2023 3:31 PM RADIATION DOSE METRICS: Total DLP (mGy-cm): 547 FINDINGS: ANTERIOR CIRCULATION: Right internal carotid artery: Atherosclerotic changes right internal carotid with mild stenosis distally. Right middle cerebral artery: No occlusion or significant stenosis. No aneurysm. Right anterior cerebral artery: No occlusion or significant stenosis. No aneurysm. Left internal carotid artery: Atherosclerotic changes left internal carotid with mild stenosis distally. Left middle cerebral artery: No occlusion or significant stenosis. No aneurysm. Left anterior cerebral artery: No occlusion or significant stenosis. No aneurysm. 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 Left vertebral artery: No occlusion or significant stenosis. No aneurysm. Basilar artery: No occlusion or significant stenosis. No aneurysm. Right posterior cerebral artery: No occlusion or significant stenosis. No aneurysm. 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 Brain: No midline shift or significant mass effect is seen. Cerebral ventricles: No ventriculomegaly. 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 This measures larger than the comparison MRI maximum measurement of 1.4 cm. Bones/joints: Unremarkable. No acute fracture. Soft tissues: Unremarkable. PROCEDURE INFORMATION: Exam: CTA Neck With Contrast Exam date and time: 04/25/2023 4:41 PM Age: 88 years old Clinical indication: Stroke-like symptoms; Altered mental status/memory loss; Additional info: AMS TECHNIQUE: Imaging protocol: Computed tomographic angiography of the neck with contrast. 3D rendering (Not supervised by radiologist): MIP and/or 3D reconstructed images were created by the technologist. Radiation optimization: All CT scans at this facility use at least one of these dose optimization techniques: automated exposure control; mA and/or kV adjustment per patient size (includes targeted exams where dose is matched to clinical indication); or iterative reconstruction. Contrast material: OMNI 350; Contrast volume: 100 ml; Contrast route: INTRAVENOUS (IV); REPORTING DATA: Count of CT and Cardiac NM exams in prior 12 months: This patient has received 0 known CTs and 0 known cardiac nuclear medicine studies in the 12 months prior to the current study. COMPARISON: CT head thrombolytic [id number] 04/25/2023 3:31 PM RADIATION DOSE METRICS: Total DLP (mGy-cm): 547 FINDINGS: Right common carotid artery: No stenosis. No dissection or occlusion. Right internal carotid artery: Atherosclerotic changes proximal right internal carotid with 30% stenosis. Right external carotid artery: No occlusion or stenosis of the origin. Left common carotid artery: No stenosis. No dissection or occlusion. Left internal carotid artery: Atherosclerotic changes proximal left internal carotid artery with 50% stenosis. Left external carotid artery: No occlusion or stenosis of the origin. Right vertebral artery: No stenosis. No dissection or occlusion. Left vertebral artery: Atherosclerotic changes cause 50% stenosis in the mid left V2 segment of the vertebral artery focally. Soft tissues: Probable epidermal inclusion cyst right occipital scalp is unchanged. Bones/joints: No acute fracture. Degenerative bony changes. CT/CT angio headneck* [id number] IMPRESSION: 1. No large vessel occlusion or significant stenosis. 2. 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 Correlate clinically. 3. 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 IMPRESSION: 1. No occlusion or significant stenosis. 2. Atherosclerotic changes, as described. REFERENCES: NASCET CRITERIA. The degree of stenosis in the cervical segment of the internal carotid artery is based on NASCET criteria. Normal is no stenosis. Mild is less than 50% stenosis. Moderate is 50-69% stenosis. Severe is 70% to 99% stenosis. Total occlusion is no detectable patent lumen.
[2023-04-25 16:10] LABS: INR 0.97 (0.8-1.2)
[2023-04-25 16:11] LABS: Partial Thromboplastin Time 29.6 SECONDS (23.9-36.7)
[2023-04-25 16:21] VITALS: BP 124/78; O2SAT 96
[2023-04-25] MEDS: iohexol 350 mg/mL 500 mL Btl (per mL) IV (16:48)
--- NOTE | 2023-04-25 17:14 | P.CONIM_ITS ---
Providers/Reason For Consult Consulting Physician/Specialty*: David Sanders MD neurology and epilepsy Reason for Consult*: Code stroke ER bed 10 Primary Care Provider: Marquez Ross MD History of Present Illness History of Present Illness Diogenes Mustafa is a 88 year old male With a history of heart disease status post stent placement approximately 1 to 2 months ago. Patient also has a history of diabetes, and hypertension. According to the patient he was at the doctor's office on the second floor and experienced acute onset of right facial weakness associated with blurred vision worse in the right eye. Code stroke was initiated and the patient was transferred to the [facility] emergency room bed #10. In the emergency room patient underwent head CT which revealed no acute findings. Patient's symptoms resolved within approximately 20 minutes. NIH score = 0. The patient reported that he had a similar episode of right facial weakness with blurred vision worse in the right eye approximately 2 months ago. The patient also stated that following his stent placement 1 to 2 months ago he was off of his Plavix. He stated Plavix was restarted 2 days prior to this code stroke. Currently the patient is without complaints with no edgar facial weakness or visual difficulty or speech difficulty or upper or lower extremity weakness or headaches or pain. Past medical history: Coronary artery disease status post stent placement 1 to 2 months ago Hypertension Type 2 diabetes mellitus Hydronephrosis of the right kidney Meningioma Ischemic cardiomyopathy Primary urethral transitional cell carcinoma Drug allergies: None Current home medications: Plavix 75 mg p.o. every morning Aspirin 81 mg p.o. every morning Lipitor 40 mg p.o. nightly Proscar 5 mg p.o. nightly Lasix 20 mg p.o. daily Lisinopril 20 mg p.o. twice daily Metformin 500 mg p.o. daily Protonix 40 mg p.o. daily Sacubitril/Valsartan 24/25 mg tablets 1 p.o. twice daily Tamsulosin 0.4 mg p.o. daily Habits: None Family history: Remarkable for a father with stroke, heart disease, diabetes and cancer Remarkable for 2 brothers who of colon cancer Review of Systems General: Reports: 10 or more systems reviewed and unremarkable except in HPI and below Medications/Allergies Home Medications Medication Instructions Recorded Confirmed Last Taken Type finasteride 5 mg tablet 5 mg PO BEDTIME 30 days #30 tabs 04/30/21 04/25/23 04/24/23 Rx metformin 500 mg tablet 500 mg PO DAILY 11/10/21 04/25/23 04/25/23 History tamsulosin 0.4 mg capsule 0.4 mg PO DAILY 11/10/21 04/25/23 04/25/23 History furosemide 20 mg tablet 20 mg PO DAILY #90 tabs 05/25/22 04/25/23 04/25/23 Rx aspirin 81 mg tablet,delayed 81 mg PO DAILY #30 tabs 11/26/22 04/25/23 04/25/23 Rx release atorvastatin 40 mg tablet 40 mg PO BEDTIME #30 tabs 11/26/22 04/25/23 04/24/23 Rx pantoprazole 40 mg tablet,delayed 40 mg PO DAILY #30 tabs 11/26/22 04/25/23 04/25/23 Rx release clopidogrel 75 mg tablet 75 mg PO DAILY #90 tabs 12/26/22 04/25/23 04/25/23 Rx sacubitril 24 mg-valsartan 26 mg 1 tab PO BID #180 tabs 04/21/23 04/25/23 04/25/23 Rx tablet (Entresto) lisinopril 20 mg tablet 20 mg PO BID 04/25/23 04/25/23 04/25/23 History Allergies Allergy/AdvReac Type Severity Reaction Status Date / Time No Known Allergies Allergy Verified 04/25/23 15:44 PFSH Acute PFSH: Medical History BPH (benign prostatic hyperplasia) HTN (hypertension) Varicose veins of both lower extremities Surgical History History of left knee replacement Family History Mother , AT AGE 84 PANCREATIC CANCER Cancer Father , AT AGE 85 CHF/COLON CANCER Cancer CAD (coronary artery disease) Anesthesia complication Brother CAD (coronary artery disease) Other Diabetes Hyperlipidemia Denies family history of Clotting disorder Dementia Chronic kidney disease (CKD) Suicide Bleeding disorder Lung disease Stroke Social History Smoking and tobacco/nicotine status: never used tobacco/nicotine Alcohol intake: never Substance/Drug Use: never Housing: House Marital status: Current occupational status: retired Vitals/I&O/Wt Last Vital Signs Temp 97.5 F L 04/25/23 15:45 Pulse 78 04/25/23 15:45 Resp 22 H 04/25/23 15:45 BP 124/78 04/25/23 16:21 Pulse Ox 96 04/25/23 16:21 O2 Del Method Room Air 04/25/23 15:45 Weight last 48 hrs Weight 230 lb Physical Exam Narrative: NIH score = 0 Blood pressure 119/74 heart rate 74 O2 saturations 95% on room air. The patient is alert and oriented x3. Speech fluent. Head normocephalic. Neck supple. Cranial nerves II through XII intact. Pupils equal round and reactive to light and accommodation. Extraocular movements intact. There were no nystagmus. Visual sequeira appear to be full via confrontation. Motor testing 5/5 bilaterally. Deep tendon reflexes grossly nonfocal plantar responses flexor bilaterally. There was no clonus. Sensory examination was intact to gross modalities. There was no extinction on double sensory stimulation. Throat clear. Lungs clear. Heart regular rhythm and rate. Abdomen soft bowel sounds positive. Extremities were negative for clubbing cyanosis or edema. Data 04/25/23 15:26 04/25/23 15:26 A&P Assessment and plan (1) TIA involving left internal carotid artery: Impression: 1. Left cerebral TIA manifested as right lower facial drooping associated with blurred vision, resolved 2. Coronary atherosclerotic heart disease status post stent placement 1 to 2 months ago. (Patient reports restarting Plavix 2 days prior to the above clinical event) 3. Hyperlipidemia 4. Type 2 diabetes mellitus 5. History of meningioma 6. History of primary urethral transitional cell carcinoma 7. History of ischemic cardiomyopathy 8. History of right kidney hydronephrosis Plan: 1. Continue Plavix 75 mg p.o. every morning with food with aspirin 81 mg p.o. every morning with food 2. CT angiogram of the head and neck to assess for intracranial or extracranial stenosis involving the internal carotid arteries or vertebral arteries 3. Lab for prothrombin gene mutation, anticardiolipin antibody, lupus anticoagulant, and beta-2 glycoprotein 1 to assess for hypercoagulable state 4. Have patient follow-up with cardiology to determine if patient should be started on Brilinta or continued on Plavix and low-dose aspirin 5. Follow-up with cardiology to determine if patient should undergo 2D echocardiogram with bubble study or transesophageal echocardiogram to assess for embolic source for TIAs. 6. Patient stable from neurological standpoint for discharge planning if CT angiogram of head and neck is unrevealing 7. Please schedule patient follow-up in the [facility] neurology clinic in 2 weeks Consult Attestations Medical Necessity Statement: Critical care code stroke emergency room bed #10 Coding Level of Care Code 77235 Diagnoses TIA involving left internal carotid artery G45.1 Time Spent (min) 30
[2023-04-25 19:23] LABS: Add Urine Microscopic? NO; Charge for UA Resulting for Rev
--- NOTE | 2023-04-25 19:29 | W.ED.NEUROSD ---
HPI - Neuro Symptoms/Deficit General: Chief Complaint: Neuro Symptoms/Deficit Stated Complaint: Stroke Time Seen by Provider: 04/25/23 15:30 History of Present Illness: 88-year-old male that presents to the emergency department from his physician's office. Patient states that he was in his physician's office when he noticed sudden onset of right-sided facial weakness and blurred vision more so on the right eye. The medical staff at the physician's office immediately brought him to the emergency department for evaluation and he immediately received stroke activation and a CT scan of the head. Upon presentation to the emergency department his symptoms had completely resolved and there was no neurological deficits that could be appreciated. Review of Systems General: Reports: 10 or more systems reviewed and unremarkable except in HPI and below Eyes: Reports: change in vision and blurry vision Musc: Reports: muscle weakness (Right-sided facial weakness) PFSH ED PFSH: Medical History BPH (benign prostatic hyperplasia) HTN (hypertension) Varicose veins of both lower extremities Surgical History History of left knee replacement Family History Mother , AT AGE 84 PANCREATIC CANCER Cancer Father , AT AGE 85 CHF/COLON CANCER Cancer CAD (coronary artery disease) Anesthesia complication Brother CAD (coronary artery disease) Other Diabetes Hyperlipidemia Denies family history of Clotting disorder Dementia Chronic kidney disease (CKD) Suicide Bleeding disorder Lung disease Stroke Social History Smoking and tobacco/nicotine status: never used tobacco/nicotine Alcohol intake: never Substance/Drug Use: never Housing: House Marital status: Current occupational status: retired NIH stroke score NIHSS: Level Of Consciousness - 1a: 0 Level Of Consciousness Questions - 1b: Both Correct Level Of Consciousness Commands - 1c: Both Correct Best Gaze - 2: Normal Visual Oneill - 3: No Visual Loss Facial Palsy - 4: Normal Motor Arm Right - 5: No Drift Motor Arm Left - 5: No Drift Motor Leg Right - 6: No Drift Motor Leg Left - 6: No Drift Limb Ataxia - 7: Absent Sensory - 8: Normal Best Language - 9: No Aphasia Dysarthia - 10: Normal Extinction And Inattention - 11: 0 Score: Total Score: 0 Physical Exam Narrative: EXAM NARRATIVE: Constitutional: the patient appears well nourished and with normal developement. Vital signs reviewed as documented. HENMT: Normocephalic, atraumatic. Extermal ears with normal appearance without drainage. Nose without drainage, normal appearance. Mucus membranes moist. Neck is supple, No jugular venous distension, trachea is midline, no appreciable carotid bruits. No lymphadenopathy. No meningeal signs. Flexion, extension and lateral rotation is without pain. Eyes: Pupils are equal, round, reactive to light and accomidation. No scleral icterus. Extra-ocular movement are intact. Thorax is symmetrical and with equal rise and fall with respirations. Resp: Lungs are clear to auscultation. No wheezes, rales, crackles or ronchi at pesent. Cardio: Regular rate and rhythm. Positive S1, S2. No appreciable murmurs, rubs or gallops. GI: Abdominal exam reveals normal bowel sounds to all quadrants. No organomegaly. No obvious palpable masses noted. No hepatomegaly appreciated. Soft, nontender to palpation. Extremity: Extremities are non-edematous and both femoral and pedal pulses are 2+ and equal bilaterally. Moves all extremities well, sensation in all extremities. Neuro: Alert and oriented x4, person, place, time and situation. Cranial nerves II through XII are grossly intact, there is no focal neurological deficits that I can appreciate at present. Motor strength in the upper and lower extremities are equal and bilateral 5/5. Psych: Cooperative, calm, normal thought process, appropriate judgment. Skin: No lesions, rashes. No gross abnormalities noted. Back: Symmetrical, no obvious deformity, No CVA tenderness Course Vital Signs: Vital signs: Vital Signs Temperature 98 F 04/26/23 19:16 Pulse Rate 77 04/26/23 19:16 Respiratory Rate 18 04/26/23 19:16 Blood Pressure 127/80 04/26/23 19:16 Pulse Oximetry 96 04/26/23 19:16 Oxygen Delivery Me thod Room Air 04/26/23 16:16 MDM - Neuro Symptoms/Deficit Medical Decision Making Physical exam completed and documented, CBC, CMP, CT head and CTA head and neck were completed, I did consult neurology for additional evaluation. We did consult neurosurgery at the closest stroke center and was advised that given the patient's resolution of symptoms their recommendations were to admit to our hospital and have the neurologist and hospitalist following continue to evaluate. Medical Records I reviewed the patient's medical records. Lab Data 04/26/23 04:15 04/26/23 04:15 Radiology Impressions Head/Neck CTA 04/25/23 16:07 IMPRESSION: 1. No large vessel occlusion or significant stenosis. 2. 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 Correlate clinically. 3. 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 IMPRESSION: 1. No occlusion or significant stenosis. 2. Atherosclerotic changes, as described. REFERENCES: NASCET CRITERIA. The degree of stenosis in the cervical segment of the internal carotid artery is based on NASCET criteria. Normal is no stenosis. Mild is less than 50% stenosis. Moderate is 50-69% stenosis. Severe is 70% to 99% stenosis. Total occlusion is no detectable patent lumen. ADDENDUM: 04/25/23 0724 THIS REPORT CONTAINS FINDINGS THAT MAY BE CRITICAL TO PATIENT CARE. The findings were verbally communicated via telephone conference with RADU Irwin at 5:36 PM CDT on 04/25/2023. The findings were acknowledged and understood. Laboratory Results WBC 7.27 10^3/uL (3.29-11.43) 04/25/23 15: RBC 4.65 10^6/uL (3.85-5.65) 04/25/23 15: Hgb 14.70 g/dL (11.27-16.99) 04/25/23 15: Hct 44.6 % (37-53) 04/25/23 15: MCV 95.9 fl (82-101) 04/25/23 15: MCH 31.6 pg (27-33) 04/25/23 15: MCHC 33.0 g/dL (30-55) 04/25/23 15: RDW 14.1 % (12.1-15.1) 04/25/23 15: Plt Count 214 10^3/cmm (157-399) 04/25/23 15: MPV 10.3 fL (7.4-10.4) 04/25/23 15: Neut % (Auto) 55.0 % 04/25/23 15: Lymph % (Auto) 37.1 % 04/25/23 15: Wetzel % (Auto) 4.8 % 04/25/23 15: Eos % (Auto) 2.2 % 04/25/23 15: Baso % (Auto) 0.6 % 04/25/23 15: Neut # (Auto) 4.00 10^3/uL (1.8-7.7) 04/25/23: Lymph # (Auto) 2.7 10^3/uL (0.8-4.8) 04/25/23 15: Wetzel # (Auto) 0.4 10^3/uL (0.2-0.9) 04/25/23: Eos # (Auto) 0.2 10^3/uL (0.0-0.8) 04/25/23 15: Baso # (Auto) 0.0 10^3/uL (0.0-0.1) 04/25/23: Nucleated RBC % (auto) 0 % 04/25/23: Nucleated RBCs # 0.0 /100WBC 04/25/23 15: PT 13.10 SECONDS (12.1-14.9) 04/25/23 15: INR 0.97 (0.8-1.2) 04/25/23 15: APTT 29.6 SECONDS (23.9-36.7) 04/25/23 15: Sodium 137 mmol/L (136-145) 04/25/23 15: Potassium 4.6 mmol/L (3.5-5.1) 04/25/23 15: Chloride 101 mmol/L (98-107) 04/25/23 15: Carbon Dioxide 25 mmol/L (22-29) 04/25/23 15: Anion Gap 15.6 (5-19) 04/25/23 15: BUN 17 mg/dL (8-23) 04/25/23 15: Creatinine 1.5 mg/dL (0.7-1.2) H 04/25/23 15:26 GFR Calculation Not Reportable 04/25/23 15:26 Glucose 203 mg/dL (65-115) H 04/25/23 15:26 POC Glucose 194 mg/dL (70-110) H 04/25/23 15:40 Calculated Osmolality 291 mOsm/kg (285-295) 04/25/23 15:26 Calcium 9.5 mg/dL (8.5-10.5) 04/25/23 15:26 Total Bilirubin 0.3 mg/dL (0.15-1.2) 04/25/23 15:26 AST 14 U/L (0-40) 04/25/23 15:26 ALT 10 U/L (0-41) 04/25/23 15:26 Alkaline Phosphatase 110 U/L (40-130) 04/25/23 15:26 Total Protein 7.5 g/dL (6.6-8.7) 04/25/23 15:26 Albumin 3.9 g/dL (3.5-5.2) 04/25/23 15:26 Globulin 3.6 g/dL (1.3-4.6) 04/25/23 15:26 Urine Color Yellow (Yellow) 04/25/23 19:07 Urine Appearance Clear (CLEAR) 04/25/23 19:07 Urine pH 8 (5-7) H 04/25/23 19:07 Ur Specific [place] 1.005 (1.005-1.030) 04/25/23 19:07 Urine Protein Neg (Negative) 04/25/23 19:07 Urine Glucose (UA) Norm (Normal) 04/25/23 19:07 Urine Ketones Negative (Negative) 04/25/23 19:07 Urine Blood Neg (Negative) 04/25/23 19:07 Urine Nitrate Negative (Negative) 04/25/23 19:07 Urine Bilirubin Neg (Negative) 04/25/23 19:07 Prot Sulfosalicylic Acd Negative (Negative) 04/25/23 19:07 Urine Urobilinogen Norm mg/dL (Negative) 04/25/23 19:07 Ur Leukocyte Esterase Negative (Negative) 04/25/23 19:07 Urine Opiates Screen Negative ng/mL (Negative) 04/25/23 19:07 Ur Barbiturates Screen Negative ng/mL (Negative) 04/25/23 19:07 Ur Phencyclidine Scrn Negative ng/mL (Negative) 04/25/23 19:07 Ur Amphetamines Screen Negative ng/mL (Negative) 04/25/23 19:07 U Benzodiazepines Scrn Negative ng/mL (Negative) 04/25/23 19:07 Urine Cocaine Screen Negative ng/mL (Negative) 04/25/23 19:07 U Marijuana (THC) Screen Negative ng/mL (Negative) 04/25/23 19:07 All radiology interpretation(s) finalized by discharge Critical Care Time Critical Care Time: Critical Care Time: Yes Total Critical Care Time: 70 Attestation: This case had a high probability of a clinically significant, sudden, or life threatening deterioration of this patient's condition which required my full and direct attention, intervention and personal management. Discharge Plan Discharge Patient Disposition: Admitted As Inpatient Admit Provider: Khadijah Garcia Clinical Impression: Cerebrovascular accident, Transient cerebral ischemia Condition: Stable Discharge Diet: Usual diet Discharge Activity: Resume usual activity Coding Level of Care Code ED Guest History Clerk for Sofiya Gary
[2023-04-25 19:35] VITALS: BP 128/68; PULSE 74; RESP 17; O2SAT 96
[2023-04-25 19:38] LABS: Amphetamines Screen Urine Negative (Negative); Barbiturates Screen Urine Negative (Negative); Benzodiazepines Screen Urine Negative (Negative); Cocaine Screen Urine Negative (Negative); Opiate Screen Urine Negative (Negative); PCP Screen Urine Negative (Negative); THC Screen Urine Negative (Negative)
[2023-04-25 19:40] LABS: Bilirubin Urine Neg (Negative); Blood Urine Neg (Negative); Glucose Urine UA Norm (Normal); Ketones Urine Negative (Negative); Nitrate Urine Negative (Negative); Protein Urine Neg (Negative); Specific Gravity, Urine 1.005 (1.005-1.030); Urine Appearance Clear (CLEAR); Urine Color Yellow (Yellow); pH Urine 8 (5-7)
[2023-04-25 19:41] LABS: Leukocyte Esterase Urine Negative (Negative); Sulfosalicylic Acid Urine Negative (Negative); Urobilinogen Urine Norm (Negative)
[2023-04-25 21:00] VITALS: BP 129/71; PULSE 99; RESP 14; O2SAT 95
[2023-04-25 22:02] VITALS: BP 165/81; PULSE 83; RESP 15; TEMP 36.6; O2SAT 97
--- NOTE | 2023-04-25 22:43 | P.HP_ITS ---
Providers/Chief Complaint Admitting Physician: Khadijah Garcia MD Primary Care Provider: Marquez Ross MD Chief Complaint: Stroke History of Present Illness Diogenes Mustafa is a 88 year old male with history of hypertension hyperlipidemia diabetes ischemic cardiomyopathy CAD s/p PCI x1 6 months ago was sent in from cardiology outpatient clinic for complaint of feeling dizzy associated with headache and weakness and right-sided neck pain with sudden onset while waiting in the outpatient clinic. He was there at the clinic for his regular follow-up with Dr. Moreau cardiology. he denied any prior history of fever cold cough shortness of breath chest pain abdominal pain nausea vomiting or urinary complaints Review of Systems Narrative: As per HPI Medications/Allergies Home Medications Medication Instructions Recorded Confirmed Last Taken Type finasteride 5 mg tablet 5 mg PO BEDTIME 30 days #30 tabs 04/30/21 04/25/23 04/24/23 Rx metformin 500 mg tablet 500 mg PO DAILY 11/10/21 04/25/23 04/25/23 History tamsulosin 0.4 mg capsule 0.4 mg PO DAILY 11/10/21 04/25/23 04/25/23 History furosemide 20 mg tablet 20 mg PO DAILY #90 tabs 05/25/22 04/25/23 04/25/23 Rx aspirin 81 mg tablet,delayed 81 mg PO DAILY #30 tabs 11/26/22 04/25/23 04/25/23 Rx release atorvastatin 40 mg tablet 40 mg PO BEDTIME #30 tabs 11/26/22 04/25/23 04/24/23 Rx pantoprazole 40 mg tablet,delayed 40 mg PO DAILY #30 tabs 11/26/22 04/25/23 04/25/23 Rx release clopidogrel 75 mg tablet 75 mg PO DAILY #90 tabs 12/26/22 04/25/23 04/25/23 Rx sacubitril 24 mg-valsartan 26 mg 1 tab PO BID #180 tabs 04/21/23 04/25/23 04/25/23 Rx tablet (Entresto) lisinopril 20 mg tablet 20 mg PO BID 04/25/23 04/25/23 04/25/23 History Allergies Allergy/AdvReac Type Severity Reaction Status Date / Time No Known Allergies Allergy Verified 04/25/23 15:44 PFSH Acute PFSH: Medical History BPH (benign prostatic hyperplasia) HTN (hypertension) Varicose veins of both lower extremities Surgical History History of left knee replacement Family History Mother , AT AGE 84 PANCREATIC CANCER Cancer Father , AT AGE 85 CHF/COLON CANCER Cancer CAD (coronary artery disease) Anesthesia complication Brother CAD (coronary artery disease) Other Diabetes Hyperlipidemia Denies family history of Clotting disorder Dementia Chronic kidney disease (CKD) Suicide Bleeding disorder Lung disease Stroke Social History Smoking and tobacco/nicotine status: never used tobacco/nicotine Alcohol intake: never Substance/Drug Use: never Housing: House Marital status: Current occupational status: retired Vitals/I&O/Wt Last Vital Signs Temp 98 F 04/25/23 22:02 Pulse 83 04/25/23 22:02 Resp 15 04/25/23 22:02 BP 165/81 04/25/23 22:02 Pulse Ox 97 04/25/23 22:02 O2 Del Method Room Air 04/25/23 22:02 Weight last 48 hrs Weight 104.326 kg Physical Exam Narrative: He is alert awake oriented x3 not in acute distress pleasant and cooperative Chest clear to auscultation bilaterally Cardiovascular normal heart sounds no murmurs Abdomen NAD Extremities 1+ bilateral lower extremity pitting edema present Neurological normal speech no focal motor or sensory deficits present. Data 04/25/23 15:26 04/25/23 15:26 CT Head: Radiologist's impression: IMPRESSION: 1.? No evidence of intracranial hemorrhage or mass effect. 2.? Moderate small vessel changes. Moderate parenchymal volume loss. 3.? Intracranial vascular calcification. 4.? No acute intracranial findings. Other CT: Radiologist's impression: CT angio head and neck IMPRESSION: 1. ? No large vessel occlusion or significant stenosis. 2. ? 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 Correlate clinically. 3. ? 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 A&P Assessment and plan (1) TIA involving left internal carotid artery: (2) Dissecting hemorrhage of right vertebral artery: Plan 88 year old male with history of hypertension hyperlipidemia diabetes ischemic cardiomyopathy CAD s/p PCI x1 6 months ago was sent in from cardiology ou tpatient clinic for complaint of feeling dizzy associated with headache and weakness and right-sided neck pain with sudden onset while waiting in the outpatient clinic likely secondary to TIA and found to have right vertebral artery proximal dissection on CT angio head and neck. As per the ER physician neurology consulted from ER recommended to consult neurosurgery and vascular/IR at [facility] in [place]. Since he is stable at this time with no focal neurological deficits, they recommended no further intervention except to continue aspirin and Plavix. He received 1 dose of alteplase IV 100 mg in ER. Neurology to follow-up in a.m. 6 Plan to get MRI brain with and without contrast in a.m. Resume home medications including aspirin and Plavix IV Pepcid 20 mg twice a day for stress ulcer prophylaxis Intermittent compression devices for DVT prophylaxis Cardiac diet He is full code. Attestations Medical Necessity Statement*: He needs hospitalization for less than 2 days. He is here for possible stroke, has right vertebral artery dissection which needs to be confirmed with MRI with and without contrast in a.m. Time Spent in Patient Care: 30 minutes Coding Level of Care Code Acute Code for Sofiya Gary Diagnoses TIA involving left internal carotid artery G45.1 Dissecting hemorrhage of right vertebral artery I77.74 Time Spent (min) 30
--- NOTE | 2023-04-25 22:54 | PC.NURSE ---
Dr Garcia ordered to hold Lovenox. SCDs ordered.
[2023-04-25 23:02] LABS: Glucose Point of Care 132 mg/dL (70-110)
[2023-04-25 23:06] VITALS: BP 104/63; PULSE 73; RESP 14; TEMP 36.6; O2SAT 92
--- NOTE | 2023-04-26 01:20 | MR_ITS ---
WS: [id number] MRI BRAIN WITH AND WITHOUT CONTRAST HISTORY: AMS COMPARISON: 04/27/2021 TECHNIQUE: Multiplanar imaging performed through the brain with MultiHance 20 ml's IV. No acute infarcts are seen. Bain-white matter differentiation is well preserved. Moderate small vesse l ischemic changes and moderate atrophy. Minimal progression of small vessel ischemic disease. No susceptibility artifacts or prior lacunar infarcts. Ventricles and extra-axial spaces are dilated on the basis of atrophy. Visualized posterior fossa and brainstem are also normal. Again noted is an enhancing mass along the RIGHT planum sphenoidale that has been previously describ ed. There is moderate to intense enhancement along the mass. 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 Similar to the prior study. This mass does abut the RIGHT optic chiasm and extends into the sella turcica. No interval change. Also r eidentified is a LEFT cerebellar venous angioma. No additional masses are identified. Dural venous sinuses are normal. Paranasal sinuses: Very minimal mucoperiosteal thickening involving the sinuses. No air-fluid levels. Mastoid air cells: Normal. Calvarium and scalp: Calvarium is intact. Sebaceous cyst in the soft tissues over the posterior RIGHT parietal bone. Cyst measures 2.2 x 1.4 cm. Cyst does not enhance IMPRESSION: 1. No acute infarct and no hemorrhage. 2. Stable meningioma along the RIGHT planum sphenoidale since 04/27/2021. Meningioma abuts the RIGHT optic chiasm as before. 3. LEFT cerebellar venous angioma. 4. Moderate atrophy and moderate small vessel ischemic disease.
[2023-04-26 03:42] VITALS: BP 100/68; PULSE 76; RESP 17; TEMP 36.6; O2SAT 94
[2023-04-26 05:14] LABS: Basophils # 0.1 10^3/uL (0.0-0.1); Basophils % 0.5 %; Eosinophils # 0.2 10^3/uL (0.0-0.8); Eosinophils % 2.1 %; Hematocrit 41.1 % (37-53); Lymphocytes # 3.4 10^3/uL (0.8-4.8); Lymphocytes % 37.2 %; Mean Corpuscular HGB Conc 32.6 g/dL (30-55); Mean Corpuscular Hemoglobin 31.4 pg (27-33); Mean Corpuscular Volume 96.3 fl (82-101); Mean Platelet Volume 10.7 fL (7.4-10.4); Monocytes # 0.5 10^3/uL (0.2-0.9); Monocytes % 5.6 %; Neutrophils # 4.98 10^3/uL (1.8-7.7); Neutrophils % 54.4 %; Nucleated Red Blood Cells % 0 %; Platelet Count 188 10^3/cmm (157-399); Red Blood Count 4.27 10^6/uL (3.85-5.65); Red Cell Distribution Width 14.1 % (12.1-15.1); White Blood Count 9.15 10^3/uL (3.29-11.43)
[2023-04-26 05:30] LABS: Alanine Aminotransferase 9 U/L (0-41); Albumin Level 3.4 g/dL (3.5-5.2); Alkaline Phosphatase 101 U/L (40-130); Blood Urea Nitrogen 15 mg/dL (8-23); Calcium 9.2 mg/dL (8.5-10.5); Carbon Dioxide 26 mmol/L (22-29); Chloride 102 mmol/L (98-107); Globulin 3.5 g/dL (1.3-4.6); Glucose 142 mg/dL (65-115); Magnesium 1.8 mg/dL (1.7-2.3); Osmolality Calculated 289 mOsm/kg (285-295); Phosphorus 2.6 mg/dL (2.5-4.5); Sodium 138 mmol/L (136-145); Total Bilirubin 0.6 mg/dL (0.15-1.2); Total Protein 6.9 g/dL (6.6-8.7)
[2023-04-26 05:39] LABS: Anion Gap 13.9 (5-19); Aspartate Amino Transferase 15 U/L (0-40); Potassium 3.9 mmol/L (3.5-5.1)
[2023-04-26 06:39] LABS: Glucose Point of Care 124 mg/dL (70-110)
--- NOTE | 2023-04-26 07:58 | P.PN_ITS ---
Subjective Subjective: History of Present Illness Diogenes Mustafa is a 88 year old male With a history of heart disease status post stent placement approximately 1 to 2 months ago.? Patient also has a history of diabetes, and hypertension.? According to the patient he was at the doctor's office on the second floor and experienced acute onset of right facial weakness associated with blurred vision worse in the right eye.? Code stroke was initiated and the patient was transferred to the [facility] emergency room bed #10.? In the emergency room patient underwent head CT which revealed no acute findings.? Patient's symptoms resolved within approximately 20 minutes.? NIH score = 0.? The patient reported that he had a similar episode of right facial weakness with blurred vision worse in the right eye approximately 2 months ago.? The patient also stated that following his stent placement 1 to 2 months ago he was off of his Plavix.? He stated Plavix was restarted 2 days prior to this code stroke.? The patient is without complaints this a.m. with no edgar facial weakness or visual difficulty or speech difficulty or upper or lower extremity weakness or headaches or pain. 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 Neurosurgery was contacted by the emergency room physician and no surgical intervention was recommended. It was recommended that the patient remain on Plavix and aspirin. Since the patient is stable with no further TIA episodes, patient stable from neurological standpoint for discharge planning. Past medical history: Coronary artery disease status post stent placement 1 to 2 months ago Hypertension Type 2 diabetes mellitus Hydronephrosis of the right kidney Meningioma Ischemic cardiomyopathy Primary urethral transitional cell carcinoma Drug allergies: None Current home medications: Plavix 75 mg p.o. every morning Aspirin 81 mg p.o. every morning Lipitor 40 mg p.o. nightly Proscar 5 mg p.o. nightly Lasix 20 mg p.o. daily Lisinopril 20 mg p.o. twice daily Metformin 500 mg p.o. daily Protonix 40 mg p.o. daily Sacubitril/Valsartan 24/25 mg tablets 1 p.o. twice daily Tamsulosin 0.4 mg p.o. daily Habits: None Family history: Remarkable for a father with stroke, heart disease, diabetes and cancer Remarkable for 2 brothers who of colon cancer Review of Systems General:?? Reports: 10 or mor e systems reviewed and unremarkable except in HPI and below Vitals/I&O/Wt Last Vital Signs Temp 97.9 F 04/26/23 03:42 Pulse 76 04/26/23 03:42 Resp 17 04/26/23 03:42 BP 100/68 04/26/23 03:42 Pulse Ox 94 04/26/23 03:42 O2 Del Method Room Air 04/26/23 03:42 Weight last 48 hrs Weight 230 lb Physical Exam Narrative: The patient is alert and oriented x3.? Speech fluent.? Head normocephalic.? Neck supple.? Cranial nerves II through XII intact.? Pupils equal round and reactive to light and accommodation.? Extraocular movements intact.? There were no nystagmus.? Visual sequeira appear to be full via confrontation.? Motor testing 5/5 bilaterally.? Deep tendon reflexes grossly nonfocal plantar responses flexor bilaterally.? There was no clonus.? Sensory examination was intact to gross modalities.? There was no extinction on double sensory stimulation.? Throat c lear.? Lungs clear.? Heart regular rhythm and rate.? Abdomen soft bowel sounds positive.? Extremities were negative for clubbing cyanosis or edema. Data 04/26/23 04:15 04/26/23 04:15 A&P Assessment and plan (1) Dissecting hemorrhage of right vertebral artery: Impression: 1. 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 Coronary atherosclerotic heart disease status post stent placement 1 to 2 months ago. (Patient reports restarting Plavix 2 days prior to the above clinical event) 3.? Hyperlipidemia 4.? Type 2 diabetes mellitus 5.? History of meningioma 6.? History of primary urethral transitional cell carcinoma 7.? History of ischemic cardiomyopathy 8.? History of right kidney hydronephrosis Plan: 1.? Continue Plavix 75 mg p.o. every morning with food with aspirin 81 mg p.o. every morning with food 2. Patient stable from neurological standpoint for discharge planning 3. Please schedule patient for follow-up in the [facility] neurology clinic in 2 weeks Attestations Medical Necessity Statement*: Patient seen by neurology for code stroke, and right vertebral artery dissection and TIA Coding Level of Care Code 60003 Diagnoses Dissecting hemorrhage of right vertebral artery I77.74
[2023-04-26 08:08] VITALS: BP 114/66; PULSE 80; RESP 17; TEMP 36.4; O2SAT 94
[2023-04-26] MEDS: lisinopril 20 mg Tablet PO ×2 (09:45→17:06)
[2023-04-26] MEDS: clopidogrel 75 mg Tablet PO (09:45)
[2023-04-26] MEDS: FUROsemide 20 mg Tablet PO (09:45)
[2023-04-26] MEDS: tamsulosin 0.4 mg Capsule PO (09:45)
[2023-04-26] MEDS: metformin 500 mg Tablet PO (09:46)
[2023-04-26] MEDS: famotidine 20 mg/2 mL INJ IVP (09:52)
[2023-04-26] MEDS: aspirin 81 mg EC Tablet PO (09:53)
--- NOTE | 2023-04-26 10:07 | PC.CHAP ---
Pastoral Care Encounter/Spiritual Assessment Type of Contact [] Declined flake [employer] visit [] Patient/Family/Request visit [] Outpatient visit [] Follow-up visit [] Physician referral [] Code/Alert [x] Routine visit [] Staff referral [] Actively dying [] Patient sleeping [] Family support [] [] Out of room [] Palliative care [] [] Receiving care in room [] Pre-surgical visit [] Trauma [] Long length of stay [] ICU visit [] Other: Relational/Emotional Strength [] Patient feels connected with others/family/visitors/staff [] Distress [] Loneliness/isolation [] Abandonment Spirituality of Patient [] Person of Natalie [] Attends Spiritism of their Natalie [] Believes in Prayer [] Reads Bible or Judaism materials [] There are Spiritual issues to be addressed Laborer General Interventions [x] Prayer [] Active listening [] Non-anxious presence [] Spiritual/emotional support [] Crisis/trauma care [] Spiritual counseling [] Bereavement support [] Provided bereavement packet [] Provided Bible/devotional materials [] Provided toy/stuffed animal, coloring book to patient or family member [] Provided Communion [] Anointing/Siren [] Salvation [] Completed spiritual assessment [] Other: Impact on Illness or Injury [] Angry [] Fearful [] Anxious [] Often cries [] Exhaustion [] Unable to work [] Unable to attend mormonism [] Unable to walk/stand [] Unable to read [] Unable to drive [] Unable to eat/drink [] Unable to sleep [] Unable to be with family [] Patient intubated [] Other: Summary Time spent with patient 10 min
[2023-04-26 11:03] VITALS: BP 101/57; PULSE 73; RESP 18; TEMP 36.6; O2SAT 95
[2023-04-26 11:53] LABS: Glucose Point of Care 218 mg/dL (70-110)
[2023-04-26] MEDS: gadobenate dimeglumine 20 mL vial IV (13:16)
[2023-04-26 16:16] VITALS: BP 127/80; PULSE 77; RESP 18; TEMP 36.6; O2SAT 96
--- NOTE | 2023-04-26 16:51 | PM.DCS ---
Discharge Providers Date of Admission: 04/25/23 20:22 Date of Discharge: April 26, 2023 Attending Provider at Admission: Khadijah Garcia MD Attending Provider at Discharge: Michelle Hester MD Primary Care Provider: Marquez Ross MD Diagnoses at Discharge Discharge Diagnosis (1) Dissecting hemorrhage of right vertebral artery: Status: Acute Reason for Visit Reason for Visit: Stroke Brief History: Diogenes Mustafa is a 88 year old male with history of hypertension hyperlipidemia diabetes ischemic cardiomyopathy CAD s/p PCI x1 6 months ago was sent in from cardiology outpatient clinic for complaint of feeling dizzy associated with headache and right sided facial weakness weakness and blurred vision with sudden onset while waiting in the outpatient clinic. He was found to have right vertebral artery proximal dissection on CT angio head and neck. Code stroke was initiated and the patient was transferred to the [facility] emergency room. ?Patient's symptoms resolved within approximately 20 minutes.? NIH score = 0.? he was seen by neurology and evaluated in the ER. 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 Neurosurgery at [facility] was contacted by the emergency room physician and no surgical intervention was recommended.? It was recommended that the patient remain on Plavix and aspirin. He underwent MRI with and without contrast which showed no acute infarct and no hemorrhage. Stable meningioma along the RIGHT planum sphenoidale since 04/27/2021. Meningioma abuts the RIGHT optic chiasm as before.LEFT cerebellar venous angioma. Since the patient has been stable with no further TIA episodes, patient was deemed to be stable from neurological standpoint for discharge. He reports no new symptoms today. Eager to be discharged home. Overall impression that of TIA manifested as right lower facial drooping associated with blurred vision, resolved. Continue Plavix 75 mg p.o. every morning with food with aspirin 81 mg p.o. every morning with food. Clarified with cardiology that patient should not be on both Entresto and lisinopril. Lisinopril has therefore been discontinued. Patient asked to continue with Entresto. Physical Exam Narrative: General: No acute distress, AO x3 HEENT: PERRLA, pupils bilaterally equal and reactive, pallors not present Chest: Normal vesicular breath sounds, no added sounds, equal good air entry bilaterally CVS: S1-S2 regular, no murmurs, no tachycardia, no gallops, no rubs Abdomen: Soft, nontender, no organomegaly, bowel sounds present Neuro: No focal deficits, no facial deformity, AO x3, power 5/5 in all limbs Discharge Data Studies Completed and Pending Completed Studies During Hospitalization Category Date Time Status CT head thrombolytic [id number] Stat Cat Scan 04/25/23 15:35 Completed CTA head neck [CT angio headneck* [id number]] Stat Cat Scan 04/25/23 16:07 Completed MR head wo/w con [id number] Routine MRI 04/26/23 01:20 Completed Date of Service: 04/26/23 Procedure(s): MR head wo/w con [id number] IMPRESSION: 1.? No acute infarct and no hemorrhage. 2.? Stable meningioma along the RIGHT planum sphenoidale since 04/27/2021. Meningioma abuts the RIGHT optic chiasm as before. 3.? LEFT cerebellar venous angioma. 4.? Moderate atrophy and moderate small vessel ischemic disease Radiology Impressions Head/Neck CTA 04/25/23 16:07 IMPRESSION: 1. No large vessel occlusion or significant stenosis. 2. 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 Correlate clinically. 3. 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 IMPRESSION: 1. No occlusion or significant stenosis. 2. Atherosclerotic changes, as described. REFERENCES: NASCET CRITERIA. The degree of stenosis in the cervical segment of the internal carotid artery is based on NASCET criteria. Normal is no stenosis. Mild is less than 50% stenosis. Moderate is 50-69% stenosis. Severe is 70% to 99% stenosis. Total occlusion is no detectable patent lumen. ADDENDUM: 04/25/23 [id number] THIS REPORT CONTAINS FINDINGS THAT MAY BE CRITICAL TO PATIENT CARE. The findings were verbally communicated via telephone conference with RADU Irwin at 5:36 PM CDT on 04/25/2023. The findings were acknowledged and understood. Laboratory Results WBC 9.15 10^3/uL (3.29-11.43) 04/26/23 04:15 RBC 4.27 10^6/uL (3.85-5.65) 04/26/23 04:15 Hgb 13.40 g/dL (11.27-16.99) 04/26/23 04:15 Hct 41.1 % (37-53) 04/26/23 04:15 MCV 96.3 fl (82-101) 04/26/23 04:15 MCH 31.4 pg (27-33) 04/26/23 04:15 MCHC 32.6 g/dL (30-55) 04/26/23 04:15 RDW 14.1 % (12.1-15.1) 04/26/23 04:15 Plt Count 188 10^3/cmm (157-399) 04/26/23 04:15 MPV 10.7 fL (7.4-10.4) H 04/26/23 04:15 Neut % (Auto) 54.4 % 04/26/23 04:15 Lymph % (Auto) 37.2 % 04/26/23 04:15 [place] % (Auto) 5.6 % 04/26/23 04:15 Eos % (Auto) 2.1 % 04/26/23 04:15 Baso % (Auto) 0.5 % 04/26/23 04:15 Neut # (Auto) 4.98 10^3/uL (1.8-7.7) 04/26/23 04:15 Lymph # (Auto) 3.4 10^3/uL (0.8-4.8) 04/26/23 04:15 [place] # (Auto) 0.5 10^3/uL (0.2-0.9) 04/26/23 04:15 Eos # (Auto) 0.2 10^3/uL (0.0-0.8) 04/26/23 04:15 Baso # (Auto) 0.1 10^3/uL (0.0-0.1) 04/26/23 04:15 Nucleated RBC % (auto) 0 % 04/26/23 04:15 Nucleated RBCs # 0.0 /100WBC 04/26/23 04:15 PT 13.10 SECONDS (12.1-14.9) 04/25/23 15:26 INR 0.97 (0.8-1.2) 04/25/23 15:26 APTT 29.6 SECONDS (23.9-36.7) 04/25/23 15:26 Sodium 138 mmol/L (136-145) 04/26/23 04:15 Potassium 3.9 mmol/L (3.5-5.1) 04/26/23 04:15 Chloride 102 mmol/L (98-107) 04/26/23 04:15 Carbon Dioxide 26 mmol/L (22-29) 04/26/23 04:15 Anion Gap 13.9 (5-19) 04/26/23 04:15 BUN 15 mg/dL (8-23) 04/26/23 04:15 Creatinine 1.5 mg/dL (0.7-1.2) H 04/26/23 04:15 GFR Calculation Not Reportable 04/26/23 04:15 Glucose 142 mg/dL (65-115) H 04/26/23 04:15 POC Glucose 218 mg/dL (70-110) H 04/26/23 11:43 Calculated Osmolality 289 mOsm/kg (285-295) 04/26/23 04:15 Calcium 9.2 mg/dL (8.5-10.5) 04/26/23 04:15 Phosphorus 2.6 mg/dL (2.5-4.5) 04/26/23 04:15 Magnesium 1.8 mg/dL (1.7-2.3) 04/26/23 04:15 Total Bilirubin 0.6 mg/dL (0.15-1.2) 04/26/23 04:15 AST 15 U/L (0-40) 04/26/23 04:15 ALT 9 U/L (0-41) 04/26/23 04:15 Alkaline Phosphatase 101 U/L (40-130) 04/26/23 04:15 Total Protein 6.9 g/dL (6.6-8.7) 04/26/23 04:15 Albumin 3.4 g/dL (3.5-5.2) L 04/26/23 04:15 Globulin 3.5 g/dL (1.3-4.6) 04/26/23 04:15 Urine Color Yellow (Yellow) 04/25/23 19:07 Urine Appearance Clear (CLEAR) 04/25/23 19:07 Urine pH 8 (5-7) H 04/25/23 19:07 Ur Specific [place] 1.005 (1.005-1.030) 04/25/23 19:07 Urine Protein Neg (Negative) 04/25/23 19:07 Urine Glucose (UA) Norm (Normal) 04/25/23 19:07 Urine Ketones Negative (Negative) 04/25/23 19:07 Urine Blood Neg (Negative) 04/25/23 19:07 Urine Nitrate Negative (Negative) 04/25/23 19:07 Urine Bilirubin Neg (Negative) 04/25/23 19:07 Prot Sulfosalicylic Acd Negative (Negative) 04/25/23 19:07 Urine Urobilinogen Norm mg/dL (Negative) 04/25/23 19:07 Ur Leukocyte Esterase Negative (Negative) 04/25/23 19:07 Urine Opiates Screen Negative ng/mL (Negative) 04/25/23 19:07 Ur Barbiturates Screen Negative ng/mL (Negative) 04/25/23 19:07 Ur Phencyclidine Scrn Negative ng/mL (Negative) 04/25/23 19:07 Ur Amphetamines Screen Negative ng/mL (Negative) 04/25/23 19:07 U Benzodiazepines Scrn Negative ng/mL (Negative) 04/25/23 19:07 Urine Cocaine Screen Negative ng/mL (Negative) 04/25/23 19:07 U Marijuana (THC) Screen Negative ng/mL (Negative) 04/25/23 19:07 Vitals Last Vital Signs Temp 98 F 04/26/23 16:16 Pulse 77 04/26/23 16:16 Resp 18 04/26/23 16:16 BP 127/80 04/26/23 16:16 Pulse Ox 96 04/26/23 16:16 O2 Del Method Room Air 04/26/23 16:16 Discharge Plan Discharge Patient Disposition: Home Condition: Stable Prescriptions: Continued metformin 500 mg tablet 500 mg PO DAILY tamsulosin 0.4 mg capsule 0.4 mg PO DAILY furosemide 20 mg tablet 20 mg PO DAILY Qty: 90 3RF clopidogrel 75 mg tablet 75 mg PO DAILY Qty: 90 3RF Entresto 24-26 mg tablet 1 tab PO BID Qty: 180 3RF Hold Instructions: out of med- getting financial assistance finasteride 5 mg Tablet 5 mg PO BEDTIME 30 Days Qty: 30 2RF atorvastatin 40 mg Tablet 40 mg PO BEDTIME Qty: 30 0RF aspirin 81 mg Tablet,Delayed Release (Dr/Ec) 81 mg PO DAILY Qty: 30 0RF pantoprazole 40 mg Tablet,Delayed Release (Dr/Ec) 40 mg PO DAILY Qty: 30 0RF Discontinued lisinopril 20 mg Tablet 20 mg PO BID Discharge Orders: Discharge Order (Routine); Ordered 04/26/23 Ordered By: Michelle Hester Referrals: David Sanders MD [Physician] - (We have notified your physician's clinic of the need for a follow-up appointment to be scheduled. If you have not heard from them within the next 2 business days, please call them directly. You may also reach out to our lodging facilities manager at [phone] and she can assist you.) Marquez Ross MD [Primary Care Provider] - 05/03/23 10:30 am Discharge Diet: Usual diet Discharge Activity: Resume usual activity Patient Instructions: Stroke (GEN), Opioid Safety, Stroke Stoplight Discharge Attestations Time Spent in Discharge Care*: greater than 30 min Status at Discharge: Cognitive status at discharge: cognitively intact, Behavioral status at discharge: cooperative, Quality Metrics Clinical Quality Measures [ No reported AMI, CVA or VTE this stay] Coding Level of Care Code Acute Code for Chg Fwd Diagnoses Dissecting hemorrhage of right vertebral artery I77.74
[2023-04-26 19:16] VITALS: BP 127/80; PULSE 77; RESP 18; TEMP 36.6; O2SAT 96
== END 2023-04-26 18:25 | disposition home or self-care (01) ==
LOC: ER 19:29 → MEDSURG 20:22
PROVIDERS: Admitting Provider Internal Medicine; Emergency Provider Internal Medicine; PCP Family Medicine; Visit Provider Student in an Organized Health Care Education/Training Program
DX: G45.9 Transient cerebral ischemic attack, unspecified (principal); I77.74 Dissection of vertebral artery; E78.5 Hyperlipidemia, unspecified; E11.9 Type 2 diabetes mellitus without complications; I42.8 Other cardiomyopathies; I25.10 Atherosclerotic heart disease of native coronary artery without angina pectoris; I11.0 Hypertensive heart disease with heart failure; I50.9 Heart failure, unspecified; Z95.5 Presence of coronary angioplasty implant and graft; Z85.59 Personal history of malignant neoplasm of other urinary tract organ; N40.0 Benign prostatic hyperplasia without lower urinary tract symptoms; Z79.02 Long term (current) use of antithrombotics/antiplatelets; I44.7 Left bundle-branch block, unspecified
CPT/HCPCS: 36415; 36416; 70450; 70496; 70498; 70553; 80053; 80306; 81003; 82962; 83735; 84100; 85025; 85610; 85730; 93005; 96374; 97161; 99213; 99285; A9577; G0378; J3490; Q9967

== ENCOUNTER → 2023-10-24 13:48 | Outpatient (BNVA) | payer MEDICARE, SELFPAY | PROVIDERS: PCP Family Medicine; Visit Provider Internal Medicine Cardiovascular Disease | DX: I25.10 Atherosclerotic heart disease of native coronary artery without angina pectoris (principal); E78.5 Hyperlipidemia, unspecified; I95.2 Hypotension due to drugs; I25.5 Ischemic cardiomyopathy; E11.9 Type 2 diabetes mellitus without complications; Z79.84 Long term (current) use of oral hypoglycemic drugs | CPT/HCPCS: 99214 ==

== ENCOUNTER → 2024-08-20 14:07 | Outpatient (BNVA) | payer MEDICARE, SELFPAY | PROVIDERS: PCP Family Medicine; Visit Provider Internal Medicine Cardiovascular Disease | DX: I25.10 Atherosclerotic heart disease of native coronary artery without angina pectoris (principal); E78.5 Hyperlipidemia, unspecified; I95.2 Hypotension due to drugs; I25.5 Ischemic cardiomyopathy; E11.9 Type 2 diabetes mellitus without complications | CPT/HCPCS: 99214 ==

== ENCOUNTER 2024-11-19 12:03 | Observation (INO) | payer MEDICARE, SELFPAY ==
[2024-11-19] VITALS (19 sets, daily range): BP systolic 81–170; BP diastolic 33–104; PULSE 48–92; RESP 16–30; TEMP 36.6–36.9; O2SAT 91–100; BMI 29.9; BMI 30.2
--- NOTE | 2024-11-19 12:05 | XR_ITS ---
WS: [id number] Exam: XR chest 1V portable [id number] Date/Time of Exam: 11/19/2024 12:13 PM Reason For Exam: weakness/hx CHF Comparison 11/24/2022. The lungs are fully inflated and clear. Mild cardiac enlargement unchanged. No pleural effusions. The mediastinum is normal in contour. Bony structures are intact. XR/XR chest 1V portable [id number] IMPRESSION: 1. Mild cardiomegaly. No acute finding.
--- NOTE | 2024-11-19 12:05 | ECG_ITS ---
[facility] Date: 2024-11-19 Pat Name: Diogenes Mustafa Department: Room: Gender: Male Otolaryngologist: : 1935 Requested By: Familia Maxwell Order Number: [id number] Reading MD: DESTINY TINSLEY Measurements Intervals [place] Rate: 83 P: 68 CT: 194 QRS: 47 QRSD: 169 T: 208 QT: 390 QTc: 461 Interpretive Statements SINUS RHYTHM LEFT BUNDLE BRANCH BLOCK [120+ ms QRS DURATION, 80+ ms Q/S IN V1/V2, 85+ ms R IN I/aVL/V5/V6] Compared to ECG 04/25/2023 15:37:49 No significant changes Electronically Signed On 11-21-2024 23:34:05 CDT by DESTINY TINSLEY [email or web address]
[2024-11-19 12:20] LABS: Basophils % 0.2 %; Eosinophils # 0.1 10^3/uL (0.0-0.8); Eosinophils % 0.6 %; Hematocrit 42.6 % (37-53); Lymphocytes # 1.4 10^3/uL (0.8-4.8); Lymphocytes % 12.9 %; Mean Corpuscular HGB Conc 32.2 g/dL (30-55); Mean Corpuscular Hemoglobin 31.4 pg (27-33); Mean Corpuscular Volume 97.7 fl (82-101); Mean Platelet Volume 11.2 fL (7.4-10.4); Monocytes # 0.5 10^3/uL (0.2-0.9); Monocytes % 4.7 %; Neutrophils # 8.75 10^3/uL (1.8-7.7); Neutrophils % 81.3 %; Nucleated Red Blood Cells % 0 %; Platelet Count 152 10^3/cmm (157-399); Red Blood Count 4.36 10^6/uL (3.85-5.65); Red Cell Distribution Width 13.7 % (12.1-15.1); White Blood Count 10.77 10^3/uL (3.29-11.43)
--- NOTE | 2024-11-19 12:24 | W.ED.WEAKNES ---
HPI - Weakness General: Chief complaint: Weakness Stated complaint: Weakness x3 Time Seen by Provider: 11/19/24 12:05 History of Present Illness: 89-year-old male presents emergency room complaining of lightheaded dizziness and weakness for the last 2 to 3 days. Last week he had a couple of loose stools and it seemed to improve. EMS was called out for weakness on their initial evaluation they reported systolic blood pressure in the 60s he was given 250 mm bolus and improved by the time he arrived here. They had started him on oxygen does not usually wear oxygen at home after arriving here he was titrated off the oxygen maintain sats in the upper 90s. Later when his arrived she reported that they had increased his Lasix couple of weeks ago because of increased swelling in his legs. He has not had any chest discomfort. No vomiting. No hematochezia melena hematemesis. Associated symptoms: Denies chest pain, chills, dysuria or fever(s) Review of Systems Const: Denies: fever(s) or chills Card: Denies: chest pain Resp: Denies: dyspnea GI: Denies: abdominal pain : Denies: dysuria, urinary frequency or urinary urgency Musc: Denies: neck pain or back pain Skin/Breast: Denies: rash PFSH ED PFSH: Medical History Varicose veins of both lower extremities HTN (hypertension) BPH (benign prostatic hyperplasia) Surgical History History of left knee replacement Family History Mother , AT AGE 84 PANCREATIC CANCER Cancer Father , AT AGE 85 CHF/COLON CANCER Cancer CAD (coronary artery disease) Anesthesia complication Brother CAD (coronary artery disease) Other Diabetes Hyperlipidemia Denies family history of Clotting disorder Dementia Chronic kidney disease (CKD) Suicide Bleeding disorder Lung disease Stroke Social History Smoking and tobacco/nicotine status: never used tobacco/nicotine Alcohol intake: never Substance/Drug Use: never Housing: House Marital status: Current occupational status: retired Physical Exam Const: GENERAL APPEARANCE: cooperative ORIENTATION/CONSCIOUSNESS: Yes awake HENMT: COMMON NORMALS: normocephalic, atraumatic and hearing grossly normal bilaterally HEAD & SCALP: normocephalic and atraumatic Resp: COMMON NORMALS: normal respiratory effort, No retractions, No use of accessory muscles and clear to auscultation bilaterally AUSCULTATION: clear to auscultation bilaterally Cardio: COMMON NORMALS: regular rate, regular rhythm and No murmurs present (Cardio) RATE: regular rate RHYTHM: regular rhythm GI: COMMON NORMALS: Soft to palpation and No hepatosplenomegaly present AUSCULTATION: Yes normoactive bowel sounds PALPATION: Yes Soft to palpation, No Tenderness to palpation present (GI), No Guarding due to palpation present (GI) and Yes No hepatosplenomegaly present Extremity: COMMON NORMALS: normal to inspection, capillary refill normal, no clubbing, cyanosis or edema, no calf tenderness and no pedal edema Skin: COMMON NORMALS: no rashes or lesions noted GENERAL SKIN EXAM: no rashes or lesions noted Course Vital Signs: Vital signs: Vital Signs Temperature 98.0 F 11/20/24 12:00 Pulse Rate 76 11/20/24 12:00 Respiratory Rate 25 H 11/20/24 12:00 Blood Pressure 138/74 11/20/24 12:00 Pulse Oximetry 97 11/20/24 12:00 Oxygen Delivery Me thod Room Air 11/20/24 12:00 Oxygen Flow Rate 4 11/19/24 12:07 MDM - Weakness Medical Decision Making Patient has significant orthostasis with drops of pressure to the 80s when he stands. Creatinine is elevated at 1.9. I suspect the majority this is driven by the Lasix. He did report some loose stools a week ago but that seemed to have improved. The also mentioned that he was started on a new medication for his diabetes and believes the pioglitazone that may need to be reevaluated as well. Discussed with hospitalist will place in observation for acute kidney injury and orthostasis rehydration and reevaluation of medications. Medical Records I reviewed the patient's medical records. Lab Data I reviewed the patient's lab results. 11/20/24 02:33 11/20/24 02:33 Radiology Impressions Chest X-Ray 11/19/24 12:05 IMPRESSION: 1. Mild cardiomegaly. No acute finding. Abdomen/Pelvis CT 11/19/24 15:56 IMPRESSION: 1. Interval placement of a right ureteral stent with improved hydronephrosis. 2. Cholelithiasis. Carotid Doppler Study 11/19/24 16:30 IMPRESSION: No hemodynamically significant carotid arterial stenosis. REFERENCES: SRU CRITERIA. The degree of internal carotid artery stenosis is based on criteria defined by the Society of Radiologists in Ultrasound (SRU). Normal is no stenosis. Mild is less than 50% stenosis. Moderate is 50-69% stenosis. Severe is greater than 69% stenosis to near occlusion. Near occlusion is a markedly narrowed lumen. Total occlusion is no detectable patent lumen. Laboratory Results WBC 10.77 10^3/uL (3.29-11.43) 11/19/24 11:40 RBC 4.36 10^6/uL (3.85-5.65) 11/19/24 11:40 Hgb 13.70 g/dL (11.27-16.99) 11/19/24 11:40 Hct 42.6 % (37-53) 11/19/24 11:40 MCV 97.7 fl (82-101) 11/19/24 11:40 MCH 31.4 pg (27-33) 11/19/24 11:40 MCHC 32.2 g/dL (30-55) 11/19/24 11:40 RDW 13.7 % (12.1-15.1) 11/19/24 11:40 Plt Count 152 10^3/cmm (157-399) L 11/19/24 11:40 MPV 11.2 fL (7.4-10.4) H 11/19/24 11:40 Neut % (Auto) 81.3 % 11/19/24 11:40 Lymph % (Auto) 12.9 % 11/19/24 11:40 [place] % (Auto) 4.7 % 11/19/24 11:40 Eos % (Auto) 0.6 % 11/19/24 11:40 Baso % (Auto) 0.2 % 11/19/24 11:40 Neut # (Auto) 8.75 10^3/uL (1.8-7.7) H 11/19/24 11:40 Lymph # (Auto) 1.4 10^3/uL (0.8-4.8) 11/19/24 11:40 [place] # (Auto) 0.5 10^3/uL (0.2-0.9) 11/19/24 11:40 Eos # (Auto) 0.1 10^3/uL (0.0-0.8) 11/19/24 11:40 Baso # (Auto) 0.0 10^3/uL (0.0-0.1) 11/19/24 11:40 Nucleated RBC % (auto) 0 % 11/19/24 11:40 Nucleated RBCs # 0.0 /100WBC 11/19/24 11:40 Sodium 136 mmol/L (136-145) 11/19/24 11:40 Potassium 4.7 mmol/L (3.5-5.1) 11/19/24 11:40 Chloride 99 mmol/L (98-107) 11/19/24 11:40 Carbon Dioxide 25 mmol/L (22-29) 11/19/24 11:40 Anion Gap 16.7 (5-19) 11/19/24 11:40 BUN 37 mg/dL (8-23) H 11/19/24 11:40 Creatinine 1.9 mg/dL (0.7-1.2) H 11/19/24 11:40 GFR Calculation Not Reportable 11/19/24 11:40 Glucose 279 mg/dL (65-115) H 11/19/24 11:40 Calculated Osmolality 301 mOsm/kg (285-295) H 11/19/24 11:40 Lactic Acid 1.2 mmol/L (0.5-2.2) 11/19/24 12:30 Calcium 9.0 mg/dL (8.5-10.5) 11/19/24 11:40 Total Bilirubin 0.5 mg/dL (0.15-1.2) 11/19/24 11:40 AST 16 U/L (0-40) 11/19/24 11:40 ALT 11 U/L (0-41) 11/19/24 11:40 Alkaline Phosphatase 117 U/L (40-130) 11/19/24 11:40 Troponin T Baseline 33 ng/L (0-15) H 11/19/24 11:40 Troponin T 120 Minute 25.37 ng/L (0-15) H 11/19/24 14:34 Delta Troponin T -7.63 ABS# (0-10) L 11/19/24 14:34 NT-Pro-B Natriuret Pep 208 pg/mL (0-450) 11/19/24 14:34 Total Protein 7.4 g/dL (6.6-8.7) 11/19/24 11:40 Albumin 3.7 g/dL (3.5-5.2) 11/19/24 11:40 Globulin 3.7 g/dL (1.3-4.6) 11/19/24 11:40 All radiology interpretation(s) finalized by discharge Discharge Plan Discharge Patient Disposition: Placed in Observation Admit Provider: Katia Morataya Clinical Impression: Acute kidney injury, Orthostatic hypotension T2DM (type 2 diabetes mellitus) Qualifiers: Diabetes mellitus 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 control representative insulin use: without termite control representative use Diabetes mellitus complication status: without complication Qualified Code(s): E11.9 - Type 2 diabetes mellitus without complications Discharge Diet: Cardiac and Diabetic Discharge Activity: As per PT/OT instructions Coding Level of Care Code ED Inspector Technician for Chg Fwd Related Data Home Medications ?Medication ?Instructions ?Recorded ?Confirmed atorvastatin 40 mg tablet 40 mg PO QPM 11/19/24 11/19/24 clopidogrel 75 mg tablet 75 mg PO DAILY 11/19/24 11/19/24 furosemide 40 mg tablet 40 mg PO DAILY 11/19/24 11/19/24 Held on 11/20/24. Instructions: see pcp pantoprazole 40 mg tablet,delayed 40 mg PO DAILY 11/19/24 11/19/24 release tamsulosin 0.4 mg capsule 0.4 mg PO DAILY 11/19/24 11/19/24 Held on 11/20/24. Instructions: orthostatic hypotension Previous Rx's ?Medication ?Instructions ?Recorded aspirin 81 mg tablet,delayed 81 mg PO DAILY #30 tabs 11/26/22 release dapagliflozin propanediol 5 mg 5 mg PO DAILY #30 tabs 11/20/24 tablet (Farxiga) gabapentin 600 mg tablet 300 mg (1/2 x 600 mg) PO BID #1 tab 11/20/24 Allergies Allergy/AdvReac Type Severity Reaction Status Date / Time No Known Allergies Allergy Verified 08/20/24 14:27
[2024-11-19 12:50] LABS: Alanine Aminotransferase 11 U/L (0-41); Albumin Level 3.7 g/dL (3.5-5.2); Alkaline Phosphatase 117 U/L (40-130); Anion Gap 16.7 (5-19); Aspartate Amino Transferase 16 U/L (0-40); Blood Urea Nitrogen 37 mg/dL (8-23); Carbon Dioxide 25 mmol/L (22-29); Chloride 99 mmol/L (98-107); Creatinine Clr Calc Pharmacy 32.0016; Globulin 3.7 g/dL (1.3-4.6); Glucose 279 mg/dL (65-115); Osmolality Calculated 301 mOsm/kg (285-295); Potassium 4.7 mmol/L (3.5-5.1); Sodium 136 mmol/L (136-145); Total Bilirubin 0.5 mg/dL (0.15-1.2); Total Protein 7.4 g/dL (6.6-8.7)
[2024-11-19 13:04] LABS: Lactic Sepsis W/Reflex 1.2 mmol/L (0.5-2.2)
--- NOTE | 2024-11-19 14:47 | USCV_ITS ---
Diogenes Mustafa Age: 89 Gender: M : 1935 Exam Date: 11/19/2024 15:11 Ordering Phys: Katia Morataya MD Technologist: HIMANSHU [place] [facility] [place] Hypot[place] BP: 120 / 62 HR: Rhythm: Sinus Technical Quality: Adequate MEASUREMENTS (Male / Female) Normal Values 2D ECHO LV Diastolic Diameter PLAX 6.3 cm 4.2 - 5.9 / 3.9 - 5.3 cm IVS Diastolic Thickness 1.2 cm 0.6 - 1.0 / 0.6 - 0.9 cm IVS Systolic Thickness 1.7 cm LVPW Diastolic Thickness 1.1 cm 0.6 - 1.0 / 0.6 - 0.9 cm LVPW Systolic Thickness 1.3 cm LVOT Diameter 1.8 cm LV Ejection Fraction 2D Teich 55.2 % LV Ejection Fraction MOD 4C 46.0 % LV Ejection Fraction MOD 2C 45.6 % LV Ejection Fraction 2C AL 44.6 % LA Diameter 4.5 cm RA Systolic Volume 4C AL 70.8 ml RA Systolic Volume 4C MOD 68.8 ml LA Sys Volume AL 61.4 cm cubed LA Sys Volume Index AL 27.5 cm cubed/m squared Aorta at Sinotubular Diameter 2.5 cm M-MODE LA Ao Ratio MM 1.5 AV Cusp Separation MM 1.0 cm FINDINGS Left Ventricle Right Ventricle Right Atrium Left Atrium Mitral Valve Aortic Valve Tricuspid Valve Pulmonic Valve Pericardium Aorta IVC CONCLUSIONS Limited echocardiogram performed to assess LV function LV systolic function is mildly reduced with EF of 45-50%. Mild global hypokinesis. Harvey Rutledge MD (Electronically Signed) Final Date: 20 Nov 2024 19:56 S
[2024-11-19 14:56] LABS: Troponin(5th) Baseline 33 ng/L (0-15)
[2024-11-19 14:58] LABS: Troponin 5 2HR 25.37 ng/L (0-15)
[2024-11-19 15:00] LABS: Troponin 5 2HR Delta -7.63 ABS# (0-10)
[2024-11-19 15:22] LABS: NT Pro B Type Natriuretic Pept 208 pg/mL (0-450)
--- NOTE | 2024-11-19 15:38 | ECG_ITS ---
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
--- NOTE | 2024-11-19 15:56 | CTR_ITS ---
PROCEDURE INFORMATION: Exam: CT Abdomen And Pelvis Without Contrast Exam date and time: 11/19/2024 4:03 PM Age: 89 years old Clinical indication: Prior surgery; Surgery date: 1-6 months; Surgery type: Ureteral stent; Hypotension with alejandra. TECHNIQUE: Imaging protocol: Computed tomography of the abdomen and pelvis without contrast. Radiation optimization: All CT scans at this facility use at least one of these dose optimization techniques: automated exposure control; mA and/or kV adjustment per patient size (includes targeted exams where dose is matched to clinical indication); or iterative reconstruction. COMPARISON: CT kidney stone [id number] 04/26/2021 5:10 PM RADIATION DOSE METRICS: Total DLP (mGy-cm): 902.75 FINDINGS: Lungs: Mild bibasilar atelectasis or scarring. Liver: Normal. No mass. Gallbladder and biliary ducts: Multiple gallstones. Pancreas: Normal. No ductal dilation. Spleen: Normal. No splenomegaly. Adrenal glands: Left adrenal nodularity is stable. Kidneys and ureters: Mild hydronephrosis on the right is decreased. Right hydroureter is also decreased. There has been interval placement of a double pigtail right ureteral stent in expected position. Stomach and bowel: Scattered colonic diverticula. No obstruction. No mucosal thickening. Appendix: No evidence of appendicitis. Intraperitoneal space: Unremarkable. No free air. No significant fluid collection. Vasculature: Unremarkable. No abdominal aortic aneurysm. Lymph nodes: Unremarkable. No enlarged lymph nodes. Urinary bladder: Unremarkable as visualized. Reproductive: Unremarkable as visualized. Bones/joints: Unremarkable. No acute fracture. Soft tissues: Unremarkable. CT/CT abdomen pelvis wo con [id number] IMPRESSION: 1. Interval placement of a right ureteral stent with improved hydronephrosis. 2. Cholelithiasis.
--- NOTE | 2024-11-19 16:23 | PM.HP ---
Providers/Chief Complaint Admitting Physician: Katia Morataya MD Primary Care Provider: Marquez Ross MD Chief Complaint: Weakness x3 History of Present Illness Diogenes Mustafa is a 89 year old male With past medical history of coronary artery disease, ischemic cardiomyopathy, dyslipidemia who presented to the hospital today with complaint of feeling dizzy from last few weeks. He states that this morning he just could not get up and walk. At the time his daughter checked her blood pressure and it was 98/33. He did have loose stools last week. He takes tamsulosin and Lasix at home. Daughter states that the ankles are more swollen than baseline. He also has been having a clear sputum cough and at times having yellowish sputum. Denies chest pain, shortness of breath. Lives at home with daughter. At this time denies shortness of breath chest pain nausea vomiting. 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 He did have a coronary angiogram done in 2021 at [facility]. Patient has undergone surgical intervention by urology service at [facility] in [place]. Patient recently saw cardiology in August and was recommended to reduce his amlodipine down to 5 mg daily. Secondary to hypotension patient was unable to tolerate higher dose of Entresto. He was continued on lower dose of Entresto for the time being. Medications/Allergies Home Medications ?Medication ?Instructions ?Recorded ?Confirmed ?Last Taken ?Type aspirin 81 mg tablet,delayed 81 mg PO DAILY #30 tabs 11/26/22 11/19/24 11/19/24 Rx release atorvastatin 40 mg tablet 40 mg PO QPM 11/19/24 11/19/24 11/18/24 History clopidogrel 75 mg tablet 75 mg PO DAILY 11/19/24 11/19/24 11/19/24 History furosemide 40 mg tablet 40 mg PO DAILY 11/19/24 11/19/24 11/19/24 History gabapentin 600 mg tablet 600 mg PO BID 11/19/24 11/19/24 11/19/24 History pantoprazole 40 mg tablet,delayed 40 mg PO DAILY 11/19/24 11/19/24 11/19/24 History release pioglitazone 30 mg tablet 30 mg PO DAILY 11/19/24 11/19/24 11/19/24 History tamsulosin 0.4 mg capsule 0.4 mg PO DAILY 11/19/24 11/19/24 11/19/24 History Allergies Allergy/AdvReac Type Severity Reaction Status Date / Time No Known Allergies Allergy Verified 08/20/24 14:27 PFSH Acute PFSH: Medical History Varicose veins of both lower extremities HTN (hypertension) BPH (benign prostatic hyperplasia) Surgical History History of left knee replacement Family History Mother , AT AGE 84 PANCREATIC CANCER Cancer Father , AT AGE 85 CHF/COLON CANCER Cancer CAD (coronary artery disease) Anesthesia complication Brother CAD (coronary artery disease) Other Diabetes Hyperlipidemia Denies family history of Clotting disorder Dementia Chronic kidney disease (CKD) Suicide Bleeding disorder Lung disease Stroke Social History Smoking and tobacco/nicotine status: never used tobacco/nicotine Alcohol intake: never Substance/Drug Use: never Housing: House Marital status: Current occupational status: retired Vitals/I&O/Wt Last Vital Signs Temp 97.8 F 11/19/24 12:07 Pulse 73 11/19/24 15:00 Resp 23 H 11/19/24 14:27 BP 115/55 11/19/24 15:00 Pulse Ox 94 11/19/24 14:27 O2 Del Method Room Air 11/19/24 14:00 O2 Flow Rate 4 11/19/24 12:07 Weight last 48 hrs Weight 97.522 kg Physical Exam Narrative: General: Alert oriented x3, patient seen laying in bed appearing comfortable breathing room air. HEENT: Normocephalic, atraumatic, EOMI, Cardio: Regular rate rhythm, normal S1-S2. Respiratory: Good bilateral air entry, no wheezes no rhonchi appreciated GI: Abdomen soft, nontender, nondistended, bowel sounds + Behavior: Appropriate and cooperative Extremities: 1+ edema bilateral ankles, rest of lower extremities no edema noted. Data 11/19/24 11:40 11/19/24 11:40 Micro: Microbiology 11/19/24 12:30 Blood Culture - Preliminary Blood SPECIMEN COLLECTED 11/19/24 12:30 Blood Culture - Preliminary Blood SPECIMEN COLLECTED A&P Assessment and plan (1) Orthostatic hypotension: (2) Hypotension: (3) Ischemic cardiomyopathy: (4) Dyslipidemia: (5) T2DM (type 2 diabetes mellitus): Plan #Orthostatic hypotension #Dizziness most likely secondary to above #Chronic systolic heart failure #History of transitional cell cancer of urethra #History of right hydronephrosis #DANIEL on CKD #Diabetes mellitus #Dyslipidemia #History of vertebral artery dissection ? Patient did have some loose stools last week however that has resolved at this point. Patient is on Lasix at home. ? Now has a creatinine of 1.9. Does have a history of hydronephrosis in the past. ? Order normal saline 75 cc/h for total of 500 cc ? Recheck labs at 8 PM. ? Check CT abdomen pelvis to rule out acute renal pathology that may be contributing to DANIEL ? Hold home Lasix ? Continue aspirin atorvastatin, Plavix ? Hold gabapentin ? Check echo ? Further recommendations to be made once imaging studies are available ? We will admit to observation for DANIEL at this time. ? Placed on cardiac telemetry ? Check limited echo to evaluate EF ? Lactic acid 1.2 - Trops 33, 25.37, BNP 2 8. ? EKG does show sinus rhythm with left bundle branch block. Left bundle branch block present on previous EKGs on previous visits as well. This is not a new finding. - Patient's dizziness is most likely secondary to orthostatic hypotension ? Hold tamsulosin. ? Check carotid Dopplers Full code DVT prophylaxis: Heparin SQ twice daily PDMP PDMP Reviewed: Not Reviewed Attestations Medical Necessity Statement*: observation for dizziness, orthostatic hypotension Diagnoses Orthostatic hypotension I95.1 Hypotension due to drugs I95.2 Hypotension type: hypotension due to drug Ischemic cardiomyopathy I25.5 Dyslipidemia E78.5 Type 2 diabetes mellitus without complication, without long-term current use of insulin E11.9 Diabetes mellitus intermediate designer insulin use: without intermediate designer use Diabetes mellitus complication status: without complication
--- NOTE | 2024-11-19 16:30 | USR_ITS ---
PROCEDURE INFORMATION: Exam: US Duplex Bilateral Extracranial Arteries; Complete; Carotid Arteries Exam date and time: 11/19/2024 4:55 PM Age: 89 years old Clinical indication: Dizziness; Additional info: Dizziness, include vertebral artery as well TECHNIQUE: Imaging protocol: Real-time duplex ultrasound scan of the bilateral extracranial arteries combining forde scale, color Doppler and spectral waveform analysis with image documentation. Complete exam. Exam focused on the carotid arteries. COMPARISON: CT angio headneck* [id number] 04/25/2023 4:41 PM FINDINGS: Right common carotid artery: Unremarkable. No occlusion or stenosis. Waveforms are normal. Right internal carotid artery: Minimal plaque. No occlusion or stenosis. Waveforms are normal. Right ICA/CCA ratio: Within normal limits. Right external carotid artery: No stenosis in the origin. Right vertebral artery: Unremarkable. Antegrade flow. Left common carotid artery: Unremarkable. No occlusion or stenosis. Waveforms are normal. Left internal carotid artery: Minimal plaque. No occlusion or stenosis. Waveforms are normal. Left ICA/CCA ratio: Within normal limits. Left external carotid artery: No stenosis in the origin. Left vertebral artery: Unremarkable. Antegrade flow. US/CV carotid duplex BI* [id number] IMPRESSION: No hemodynamically significant carotid arterial stenosis. REFERENCES: SRU CRITERIA. The degree of internal carotid artery stenosis is based on criteria defined by the Society of Radiologists in Ultrasound (SRU). Normal is no stenosis. Mild is less than 50% stenosis. Moderate is 50-69% stenosis. Severe is greater than 69% stenosis to near occlusion. Near occlusion is a markedly narrowed lumen. Total occlusion is no detectable patent lumen.
[2024-11-19] MEDS: sodium chloride 0.9% 1,000 ML 999 ML IV (16:36)
[2024-11-19] MEDS: heparin 5,000 unit/mL INJ 1 mL 5000 UNIT SUBCUT (16:39)
[2024-11-19 18:10] LABS: Troponin 5 6HR 24.37 ng/L (0-15); Troponin 5 6HR Delta -8.63 ng/L (0-12)
[2024-11-19 18:41] LABS: Bilirubin Urine Negative (Negative); Blood Urine 3+ (Negative); Glucose Urine UA 1+ (Normal); Ketones Urine Negative (Negative); Leukocyte Esterase Urine 1+ (Negative); Nitrate Urine Negative (Negative); Protein Urine 2+ (Negative); Specific Gravity, Urine 1.016 (1.005-1.030); Urine Appearance Turbid (CLEAR); pH Urine 5.5 (5-7)
[2024-11-19 18:43] LABS: Add Urine Microscopic? YES; Bacteria Urine None Seen /hpf; Hyaline Casts Urine 9.91 /lpf; RBC Urine >100 /hpf (0-2)
[2024-11-19 18:44] LABS: UA Slide Review UA Slide Review Perf; Urine Color Orange (Yellow)
[2024-11-19 18:45] LABS: Add Urine Culture? No
[2024-11-19 19:16] LABS: Anion Gap 15.1 (5-19); Blood Urea Nitrogen 34 mg/dL (8-23); Calcium 8.3 mg/dL (8.5-10.5); Carbon Dioxide 23 mmol/L (22-29); Chloride 103 mmol/L (98-107); Creatinine Clr Calc Pharmacy 43.4307; Glucose 161 mg/dL (65-115); Osmolality Calculated 295 mOsm/kg (285-295); Potassium 4.1 mmol/L (3.5-5.1); Sodium 137 mmol/L (136-145)
[2024-11-19] MEDS: sodium chloride 0.9% 500 ML 75 ML IV (20:24)
--- NOTE | 2024-11-19 20:27 | ECG_ITS ---
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
[2024-11-19] MEDS: atorvastatin 40 mg Tablet PO (20:49)
[2024-11-20] MEDS: heparin 5,000 unit/mL INJ 1 mL 5000 UNIT SUBCUT (01:42)
--- NOTE | 2024-11-20 02:11 | PC.NURSE ---
I let the physician know about the bloody urine output into the patients [place]ard, originally was dark brown. No new orders at this time, will continue to monitor
[2024-11-20 02:46] LABS: Basophils % 0.2 %; Eosinophils # 0.1 10^3/uL (0.0-0.8); Eosinophils % 1.3 %; Lymphocytes % 23.5 %; Mean Corpuscular HGB Conc 31.6 g/dL (30-55); Mean Corpuscular Volume 97.9 fl (82-101); Monocytes # 0.5 10^3/uL (0.2-0.9); Monocytes % 5.9 %; Neutrophils # 5.83 10^3/uL (1.8-7.7); Neutrophils % 68.7 %; Nucleated Red Blood Cells % 0 %; Platelet Count 140 10^3/cmm (157-399); Red Blood Count 3.78 10^6/uL (3.85-5.65); Red Cell Distribution Width 13.7 % (12.1-15.1); White Blood Count 8.48 10^3/uL (3.29-11.43)
[2024-11-20 02:59] LABS: Alanine Aminotransferase 7 U/L (0-41); Alkaline Phosphatase 85 U/L (40-130); Blood Urea Nitrogen 33 mg/dL (8-23); Calcium 8.2 mg/dL (8.5-10.5); Carbon Dioxide 23 mmol/L (22-29); Chloride 106 mmol/L (98-107); Creatinine Clr Calc Pharmacy 46.9229; Globulin 2.8 g/dL (1.3-4.6); Glucose 212 mg/dL (65-115); Magnesium 1.7 mg/dL (1.7-2.3); Osmolality Calculated 300 mOsm/kg (285-295); Sodium 138 mmol/L (136-145); Total Bilirubin 0.4 mg/dL (0.15-1.2); Total Protein 5.8 g/dL (6.6-8.7)
[2024-11-20 03:07] LABS: Anion Gap 13.4 (5-19); Aspartate Amino Transferase 10 U/L (0-40); Potassium 4.4 mmol/L (3.5-5.1)
[2024-11-20 04:00] VITALS: BP 109/49; PULSE 77; RESP 18; TEMP 36.8; O2SAT 92
[2024-11-20 05:52] VITALS: PULSE 69
[2024-11-20 07:39] VITALS: BP 103/51; PULSE 70; RESP 20; TEMP 36.7; O2SAT 98
[2024-11-20] MEDS: clopidogrel 75 mg Tablet PO (08:31)
[2024-11-20] MEDS: aspirin 81 mg EC Tablet PO (08:31)
[2024-11-20] MEDS: pantoprazole DR 40 mg Tablet PO (08:31)
[2024-11-20 08:33] VITALS: BP 101/49; BP 105/48; BP 129/60; PULSE 70; PULSE 71; PULSE 84
[2024-11-20 12:00] VITALS: BP 138/74; PULSE 76; RESP 25; TEMP 36.7; O2SAT 97
--- NOTE | 2024-11-20 13:00 | PM.DCS ---
Discharge Providers Date of Admission: 11/19/24 15:03 Date of Discharge: November 20, 2024 Attending Provider at Admission: Katia Morataya MD Attending Provider at Discharge: Katia Morataya MD Primary Care Provider: Marquez Ross MD Diagnoses at Discharge Discharge Diagnosis (1) Orthostatic hypotension: Status: Acute (2) Hypotension: Status: Resolved Qualifiers: Hypotension type: hypotension due to drug Qualified Code(s): I95.2 - Hypotension due to drugs (3) Ischemic cardiomyopathy: Status: Acute (4) Dyslipidemia: Status: Acute (5) T2DM (type 2 diabetes mellitus): Status: Acute Qualifiers: Diabetes mellitus complication status: without complication Diabetes mellitus retirement insulin use: without long chain beamer use Qualified Code(s): E11.9 - Type 2 diabetes mellitus without complications Reason for Visit Reason for Visit: Weakness x3 Hospital Course Hospital Course Patient presented to the hospital orthostatic hypotension. EKG did show sinus rhythm with left bundle branch block which is an old finding. Tamsulosin was stopped. Carotid Dopplers were ordered. Creatinine was 1.9. He was admitted for observation for DANIEL. His creatinine did improve subsequently. Delta troponin was negative at 6 hours. Urinalysis did show greater than 100 RBCs secondary to traumatic Ramos insertion. Echo showed EF 45 to 50% with mild global hypokinesis. DANIEL were thought to be most likely secondary to dehydration secondary to recent diarrhea. He was given IV fluids. Patient also was on pioglitazone which was now stopped. Patient recommended to switch to a different medication. It was discussed with her primary care doctor. I called this PCP over the phone and discussed transition of care with him. Patient will follow-up with him with repeat labs. Physical Exam Narrative: General: Alert oriented x3, patient seen laying in bed appearing comfortable breathing room air. HEENT: Normocephalic, atraumatic, EOMI, Cardio: Regular rate rhythm, normal S1-S2. Respiratory: Good bilateral air entry, no wheezes no rhonchi appreciated GI: Abdomen soft, nontender, nondistended, bowel sounds + Behavior: Appropriate and cooperative Extremities: 1+ edema bilateral ankles, rest of lower extremities no edema noted. Urinary Catheter Management: Ramos: Cath Placed During This Visit: yes, but has since been removed by the nurse Reason for Continuing Indwelling Catheter: Accurate Measurement of Urinary Output in Critically Ill Patients Urinary Catheter Date of Insertion: 11/19/24 Urinary Catheter Time of Insertion: 17:00 Date Urinary Catheter Removed: 11/20/24 Time Urinary Catheter Discontinued: 11:57 Discharge Data Studies Completed and Pending Completed Studies During Hospitalization Category Date Time Status CT abdomen pelvis wo con [id number] Urgent Cat Scan 11/19/24 15:56 Completed XR chest 1V portable [id number] Stat Exams 11/19/24 12:05 Completed CV carotid duplex BI* [id number] Urgent Ultrasound 11/19/24 16:30 Completed Pending at discharge Category Date Time Status Blood Culture Stat Lab 11/19/24 12:30 Results Urine Culture Stat Lab 11/19/24 17:55 Received CV. echo limited [id number] Stat Ultrasound 11/19/24 14:47 Taken Radiology Impressions Chest X-Ray 11/19/24 12:05 IMPRESSION: 1. Mild cardiomegaly. No acute finding. Abdomen/Pelvis CT 11/19/24 15:56 IMPRESSION: 1. Interval placement of a right ureteral stent with improved hydronephrosis. 2. Cholelithiasis. Carotid Doppler Study 11/19/24 16:30 IMPRESSION: No hemodynamically significant carotid arterial stenosis. REFERENCES: SRU CRITERIA. The degree of internal carotid artery stenosis is based on criteria defined by the Society of Radiologists in Ultrasound (SRU). Normal is no stenosis. Mild is less than 50% stenosis. Moderate is 50-69% stenosis. Severe is greater than 69% stenosis to near occlusion. Near occlusion is a markedly narrowed lumen. Total occlusion is no detectable patent lumen. Laboratory Results WBC 8.48 10^3/uL (3.29-11.43) 11/20/24 02:33 RBC 3.78 10^6/uL (3.85-5.65) L 11/20/24 02:33 Hgb 11.70 g/dL (11.27-16.99) 11/20/24 02:33 Hct 37.0 % (37-53) 11/20/24 02:33 MCV 97.9 fl (82-101) 11/20/24 02:33 MCH 31.0 pg (27-33) 11/20/24 02:33 MCHC 31.6 g/dL (30-55) 11/20/24 02:33 RDW 13.7 % (12.1-15.1) 11/20/24 02:33 Plt Count 140 10^3/cmm (157-399) L 11/20/24 02:33 MPV 11.0 fL (7.4-10.4) H 11/20/24 02:33 Neut % (Auto) 68.7 % 11/20/24 02:33 Lymph % (Auto) 23.5 % 11/20/24 02:33 Person % (Auto) 5.9 % 11/20/24 02:33 Eos % (Auto) 1.3 % 11/20/24 02:33 Baso % (Auto) 0.2 % 11/20/24 02:33 Neut # (Auto) 5.83 10^3/uL (1.8-7.7) 11/20/24 02:33 Lymph # (Auto) 2.0 10^3/uL (0.8-4.8) 11/20/24 02:33 Person # (Auto) 0.5 10^3/uL (0.2-0.9) 11/20/24 02: Eos # (Auto) 0.1 10^3/uL (0.0-0.8) 11/20/24 02:33 Baso # (Auto) 0.0 10^3/uL (0.0-0.1) 11/20/24 02:33 Nucleated RBC % (auto) 0 % 11/20/24 02: Nucleated RBCs # 0.0 /100WBC 11/20/24 02:33 Sodium 138 mmol/L (136-145) 11/20/24 02:33 Potassium 4.4 mmol/L (3.5-5.1) 11/20/24 02:33 Chloride 106 mmol/L (98-107) 11/20/24 02:33 Carbon Dioxide 23 mmol/L (22-29) 11/20/24 02:33 Anion Gap 13.4 (5-19) 11/20/24 02:33 BUN 33 mg/dL (8-23) H 11/20/24 02:33 Creatinine 1.3 mg/dL (0.7-1.2) H 11/20/24 02:33 GFR Calculation Not Reportable 11/20/24 02:33 Glucose 212 mg/dL (65-115) H 11/20/24 02:33 Calculated Osmolality 300 mOsm/kg (285-295) H 11/20/24 02:33 Lactic Acid 1.2 mmol/L (0.5-2.2) 11/19/24 12:30 Calcium 8.2 mg/dL (8.5-10.5) L 11/20/24 02:33 Magnesium 1.7 mg/dL (1.7-2.3) 11/20/24 02:33 Total Bilirubin 0.4 mg/dL (0.15-1.2) 11/20/24 02:33 AST 10 U/L (0-40) 11/20/24 02:33 ALT 7 U/L (0-41) 11/20/24 02:33 Alkaline Phosphatase 85 U/L (40-130) 11/20/24 02:33 Troponin T Baseline 33 ng/L (0-15) H 11/19/24 11:40 Troponin T 120 Minute 25.37 ng/L (0-15) H 11/19/24 14:34 Delta Troponin T -7.63 ABS# (0-10) L 11/19/24 14:34 Troponin T Hi Sens 6Hr 24.37 ng/L (0-15) H 11/19/24 17:39 Troponin T Hi Sens 6Hr Delta -8.63 ng/L (0-12) L 11/19/24 17:39 NT-Pro-B Natriuret Pep 208 pg/mL (0-450) 11/19/24 14:34 Total Protein 5.8 g/dL (6.6-8.7) L D 11/20/24 02:33 Albumin 3.0 g/dL (3.5-5.2) L 11/20/24 02:33 Globulin 2.8 g/dL (1.3-4.6) 11/20/24 02:33 Urine Color [place] (Yellow) A 11/19/24 17:55 Urine Appearance Turbid (CLEAR) A 11/19/24 17:55 Urine pH 5.5 (5-7) 11/19/24 17:55 Ur Specific [place] 1.016 (1.005-1.030) 11/19/24 17: Urine Protein 2+ (Negative) A 11/19/24 17:55 Urine Glucose (UA) 1+ (Normal) H 11/19/24 17:55 Urine Ketones Negative (Negative) 11/19/24 17:55 Urine Blood 3+ (Negative) A 11/19/24 17:55 Urine Nitrate Negative (Negative) 11/19/24 17:55 Urine Bilirubin Negative (Negative) 11/19/24 17:55 Urine Urobilinogen 1.0 mg/dL (Negative) 11/19/24 17:55 Ur Leukocyte Esterase 1+ (Negative) A 11/19/24 17:55 Urine RBC >100 /hpf (0-2) H 11/19/24 17:55 Urine WBC 6-10 /hpf (0-5) 11/19/24 17:55 Ur Squamous Epith Cells 11-20 /hpf (0-5) H 11/19/24 17:55 Amorphous Sediment Not Reportable 11/19/24 17:55 Urine Bacteria None seen /hpf (NONE) 11/19/24 17:55 Hyaline Casts 9.91 /lpf 11/19/24 17:55 Vitals Last Vital Signs Temp 98.0 F 11/20/24 12:00 Pulse 76 11/20/24 12:00 Resp 25 H 11/20/24 12:00 BP 138/74 11/20/24 12:00 Pulse Ox 97 11/20/24 12:00 O2 Del Method Room Air 11/20/24 12:00 O2 Flow Rate 4 11/19/24 12:07 Discharge Plan Discharge Patient Disposition: Home Condition: Stable Prescriptions: New dapagliflozin propanediol [Farxiga] 5 mg tablet 5 mg PO DAILY Qty: 30 0RF Continued aspirin 81 mg Tablet,Delayed Release (Dr/Ec) 81 mg PO DAILY Qty: 30 0RF atorvastatin 40 mg tablet 40 mg PO QPM clopidogrel 75 mg tablet 75 mg PO DAILY pantoprazole 40 mg tablet,delayed release (DR/EC) 40 mg PO DAILY Changed gabapentin 600 mg tablet 300 mg PO BID Qty: 1 0RF Held furosemide 40 mg tablet 40 mg PO DAILY Hold Instructions: see pcp tamsulosin 0.4 mg capsule 0.4 mg PO DAILY Hold Instructions: orthostatic hypotension Discontinued pioglitazone 30 mg tablet 30 mg PO DAILY No Action Entresto 24-26 mg tablet 0.5 tab PO BID Discharge Orders: Discharge Order (Routine); Ordered 11/20/24 Ordered By: Katia Morataya Other Ambulatory Orders: Basic Metabolic Panel (Routine) Timeframe: 20241122 Facility: [facility] - Location: Lab - Main Lab Ordered By: Katia Morataya Basic Metabolic Panel (Routine) Timeframe: 3 Days Facility: [facility] - Location: Lab - Main Lab Ordered By: Katia Rafia Complete Blood Count w/Auto (Routine) Timeframe: 20241122 Location: Determined by Patient Ordered By: Katia Morataya Referrals: Alessia Curtis NP [Nurse Practitioner, Cardiology] - 11/28/24 3:30 pm Lucy Moreau MD [Physician, Cardiology] - 01/15/25 11:30 am Seth Downing MD [Referring, Urology] - 4-7 days Referral Note: Patient will need referal from PCP Marquez Ross MD [Primary Care Provider, Family Practice] - 11/22/24 10:30 am Referral Note: Dr. Ross will see him this upcoming Monday. Time to be determined. Please call clinic. Discharge Diet: Cardiac and Diabetic Discharge Activity: As per PT/OT instructions Patient Instructions: Urinary Retention in Men (GEN), Enlarged Prostate (BPH) (ED), Hypotension (DC), Opioid Safety Activity Restrictions/Additional Instructions: Reduce entresto dose to 1 tab twice daily instead of 2 tablets twice daily. I spoke to Dr. Ross, he will see you in clinic on Monday. Please call his clinic to confirm time. He is aware we are holding lasix and tamsulosin. I have stopped pioglitazone and switched you over to farxiga. Please discuss with PCP regarding blood sugar medications at your visit on Monday. Discharge Attestations Time Spent in Discharge Care*: greater than 30 min Status at Discharge: Cognitive status at discharge: cognitively intact, Behavioral status at discharge: cooperative, Quality Metrics Clinical Quality Measures [ No reported AMI, CVA or VTE this stay] Coding Level of Care Code Acute Code for Chg Fwd Diagnoses Orthostatic hypotension I95.1 Hypotension due to drugs I95.2 Hypotension type: hypotension due to drug Ischemic cardiomyopathy I25.5 Dyslipidemia E78.5 Type 2 diabetes mellitus without complication, without long-term current use of insulin E11.9 Diabetes mellitus complication status: without complication Diabetes mellitus long chain beamer insulin use: without long chain beamer use
--- NOTE | 2024-11-20 15:05 | PC.NURSE ---
Provider ordered a bladder scan since patient has not urinated since woodard removal.
--- NOTE | 2024-11-20 16:10 | PC.NURSE ---
Provider is updated on patient's bladder scan. Provider okay'd the discharge, family is educated that if Diogenes does not urinate by tonight she must bring him back. Patients daughter states understanding.
--- NOTE | 2024-11-20 18:44 | PC.NURSE ---
Patient's daughter, Desirae, called to let us know that Diogenes was able to urinate just now.
== END 2024-11-20 16:10 | disposition home or self-care (01) ==
LOC: ER 14:56 → ER IP 15:03 → CSU 17:08
PROVIDERS: Admitting Provider Internal Medicine; Emergency Provider Family Medicine; PCP Family Medicine; Visit Provider Internal Medicine
DX: I95.1 Orthostatic hypotension (principal); I25.5 Ischemic cardiomyopathy; E78.5 Hyperlipidemia, unspecified; E11.9 Type 2 diabetes mellitus without complications; K21.9 Gastro-esophageal reflux disease without esophagitis; Z79.82 Long term (current) use of aspirin; I25.10 Atherosclerotic heart disease of native coronary artery without angina pectoris
CPT/HCPCS: 36415; 51702; 51798; 71045; 74176; 80048; 80053; 81001; 83605; 83735; 83880; 84484; 85025; 87040; 87086; 93005; 93308; 93880; 96360; 96361; 96372; 97110; 97161; 99285; A9270; G0378; J1644; J7030; J7040; J9999

== ENCOUNTER → 2024-11-28 14:51 | Outpatient (BNVA) | payer MEDICARE, SELFPAY | PROVIDERS: PCP Family Medicine; Visit Provider Nurse Practitioner Family | DX: Z09 Encounter for follow-up examination after completed treatment for conditions other than malignant neoplasm (principal); I95.2 Hypotension due to drugs; I25.10 Atherosclerotic heart disease of native coronary artery without angina pectoris; E78.5 Hyperlipidemia, unspecified; I25.5 Ischemic cardiomyopathy; E11.9 Type 2 diabetes mellitus without complications; Z79.01 Long term (current) use of anticoagulants; Z79.82 Long term (current) use of aspirin | CPT/HCPCS: 99213 ==

== ENCOUNTER → 2025-01-27 15:16 | Outpatient (BNVA) | payer MEDICARE, SELFPAY | PROVIDERS: PCP Family Medicine; Visit Provider Internal Medicine Cardiovascular Disease | DX: I25.10 Atherosclerotic heart disease of native coronary artery without angina pectoris (principal); I95.9 Hypotension, unspecified; E78.2 Mixed hyperlipidemia; I25.5 Ischemic cardiomyopathy; E11.9 Type 2 diabetes mellitus without complications; Z79.02 Long term (current) use of antithrombotics/antiplatelets; Z79.82 Long term (current) use of aspirin; I10 Essential (primary) hypertension | CPT/HCPCS: 99214 ==

== ENCOUNTER 2025-04-24 10:42 | Emergency (ER) | payer MEDICARE, SELFPAY ==
--- NOTE | 2025-04-24 10:42 | ECG_ITS ---
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 Measurements Intervals [place] Rate: 65 P: 26 SD: 190 QRS: 11 QRSD: 167 T: 247 QT: 402 QTc: 420 Interpretive Statements SINUS RHYTHM LEFT BUNDLE BRANCH BLOCK [120+ ms QRS DURATION, 80+ ms Q/S IN V1/V2, 85+ ms R IN I/aVL/V5/V6] Compared to ECG 11/19/2024 20:58:08 First degree AV block no longer present Electronically Signed On 04-26-2025 12:03:39 CDT by Harvey Rutledge M.D. [email or web address]
[2025-04-24 10:43] VITALS: BP 134/60; PULSE 65; RESP 16; TEMP 36.8; O2SAT 93; BMI 27.8
--- NOTE | 2025-04-24 11:12 | W.ED.FALL ---
HPI - Fall General: Chief Complaint: Fall Stated Complaint: fall - bottom wound, leg edema. History of Present Illness: 89-year-old male reports that he lives at home he has fallen several times in the last 3 days he has some sores over the sacrum and buttocks. He denies any fevers or chills denies abdominal pain dysuria urgency or frequency. Associated symptoms-after fall: Denies abdominal pain, chest pain or neck pain Related Data Home Medications ?Medication ?Instructions ?Recorded ?Confirmed atorvastatin 40 mg tablet 40 mg PO QPM 11/19/24 11/28/24 clopidogrel 75 mg tablet 75 mg PO DAILY 11/19/24 11/28/24 furosemide 40 mg tablet 40 mg PO DAILY 11/19/24 11/28/24 pantoprazole 40 mg tablet,delayed 40 mg PO DAILY 11/19/24 11/28/24 release tamsulosin 0.4 mg capsule 0.4 mg PO DAILY 11/19/24 11/28/24 Held on 11/20/24. Instructions: orthostatic hypotension sacubitril 24 mg-valsartan 26 mg 0.5 tab PO BID 11/29/24 tablet (Entresto) Previous Rx's ?Medication ?Instructions ?Recorded aspirin 81 mg tablet,delayed 81 mg PO DAILY #30 tabs 11/26/22 release dapagliflozin propanediol 5 mg 5 mg PO DAILY #30 tabs 11/20/24 tablet (Farxiga) gabapentin 600 mg tablet 300 mg (1/2 x 600 mg) PO BID #1 tab 11/20/24 Allergies Allergy/AdvReac Type Severity Reaction Status Date / Time No Known Allergies Allergy Verified 01/27/25 15:34 Review of Systems Const: Denies: fever(s) or chills Card: Denies: chest pain Resp: Denies: dyspnea GI: Denies: abdominal pain : Denies: dysuria, urinary frequency or urinary urgency Musc: Denies: neck pain or back pain Skin/Breast: Denies: rash PFSH ED PFSH: Medical History Varicose veins of both lower extremities HTN (hypertension) BPH (benign prostatic hyperplasia) Surgical History History of left knee replacement Family History Mother , AT AGE 84 PANCREATIC CANCER Cancer Father , AT AGE 85 CHF/COLON CANCER Cancer CAD (coronary artery disease) Anesthesia complication Brother CAD (coronary artery disease) Other Diabetes Hyperlipidemia Denies family history of Clotting disorder Dementia Chronic kidney disease (CKD) Suicide Bleeding disorder Lung disease Stroke Social History Smoking and tobacco/nicotine status: never used tobacco/nicotine Alcohol intake: never Substance/Drug Use: never Housing: House Marital status: Current occupational status: retired Physical Exam Const: COMMON NORMALS: no acute distress GENERAL APPEARANCE: cooperative and comfortable ORIENTATION/CONSCIOUSNESS: Yes awake HENMT: COMMON NORMALS: normocephalic, atraumatic and hearing grossly normal bilaterally HEAD & SCALP: normocephalic and atraumatic Resp: COMMON NORMALS: normal respiratory effort, No retractions, No use of accessory muscles and clear to auscultation bilaterally AUSCULTATION: clear to auscultation bilaterally Cardio: COMMON NORMALS: regular rate, regular rhythm and No murmurs present (Cardio) RATE: regular rate RHYTHM: regular rhythm GI: COMMON NORMALS: Soft to palpation and No hepatosplenomegaly present AUSCULTATION: Yes normoactive bowel sounds PALPATION: Yes Soft to palpation, No Tenderness to palpation present (GI), No Guarding due to palpation present (GI) and Yes No hepatosplenomegaly present Extremity: COMMON NORMALS: normal to inspection, capillary refill normal, no clubbing, cyanosis or edema, no calf tenderness and no pedal edema Skin: OTHER: Partial-thickness sacral decub no signs of infection no significant edema or induration Course Vital Signs: Vital signs: Vital Signs Temperature 98.3 F 04/24/25 10:43 Pulse Rate 66 04/24/25 14:38 Respiratory Rate 18 04/24/25 14:38 Blood Pressure 146/77 04/24/25 14:38 Pulse Oximetry 95 04/24/25 14:38 Oxygen Delivery Me thod Room Air 04/24/25 10:43 MDM - Fall Medical Decision Making Frequent falls no sign of injury. He has a sacral decub but there is no sign of infection at this time. 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 At this point nothing acute to admit for will discharge patient home set up for home health discussed with the family offered of case management evaluate for assisted placement they declined at this time. Medical Records I reviewed the patient's medical records. Lab Data I reviewed the patient's lab results. 04/24/25 11:05 04/24/25 11:05 Laboratory Results WBC 7.25 10^3/uL (3.29-11.43) 04/24/25 11:05 RBC 3.91 10^6/uL (3.85-5.65) 04/24/25 11:05 Hgb 12.20 g/dL (11.27-16.99) 04/24/25 11:05 Hct 38.1 % (37-53) 04/24/25 11:05 MCV 97.4 fl (82-101) 04/24/25 11:05 MCH 31.2 pg (27-33) 04/24/25 11:05 MCHC 32.0 g/dL (30-55) 04/24/25 11:05 RDW 13.9 % (12.1-15.1) 04/24/25 11:05 Plt Count 151 10^3/cmm (157-399) L 04/24/25 11:05 MPV 10.3 fL (7.4-10.4) 04/24/25 11:05 Neut % (Auto) 55.5 % 04/24/25 11:05 Lymph % (Auto) 35.4 % 04/24/25 11:05 Louisa % (Auto) 6.1 % 04/24/25 11:05 Eos % (Auto) 2.3 % 04/24/25 11:05 Baso % (Auto) 0.4 % 04/24/25 11:05 Neut # (Auto) 4.02 10^3/uL (1.8-7.7) 04/24/25 11:05 Lymph # (Auto) 2.6 10^3/uL (0.8-4.8) 04/24/25 11:05 Louisa # (Auto) 0.4 10^3/uL (0.2-0.9) 04/24/25 11:05 Eos # (Auto) 0.2 10^3/uL (0.0-0.8) 04/24/25 11:05 Baso # (Auto) 0.0 10^3/uL (0.0-0.1) 04/24/25 11:05 Nucleated RBC % (auto) 0 % 04/24/25 11:05 Nucleated RBCs # 0.0 /100WBC 04/24/25 11:05 Sodium 130 mmol/L (136-145) L 04/24/25 11:05 Potassium 4.4 mmol/L (3.5-5.1) 04/24/25 11:05 Chloride 95 mmol/L (98-107) L 04/24/25 11:05 Carbon Dioxide 22 mmol/L (22-29) 04/24/25 11:05 Anion Gap 17.4 (5-19) 04/24/25 11:05 BUN 23 mg/dL (8-23) 04/24/25 11:05 Creatinine 1.4 mg/dL (0.7-1.2) H 04/24/25 11:05 GFR Calculation Not Reportable 04/24/25 11:05 Glucose 340 mg/dL (65-115) H 04/24/25 11:05 Calculated Osmolality 287 mOsm/kg (285-295) 04/24/25 11:05 Calcium 8.3 mg/dL (8.5-10.5) L 04/24/25 11:05 Total Bilirubin 0.3 mg/dL (0.15-1.2) 04/24/25 11:05 AST 14 U/L (0-40) 04/24/25 11:05 ALT 13 U/L (0-41) 04/24/25 11:05 Alkaline Phosphatase 115 U/L (40-130) 04/24/25 11:05 Total Protein 6.7 g/dL (6.6-8.7) 04/24/25 11:05 Albumin 3.2 g/dL (3.5-5.2) L 04/24/25 11:05 Globulin 3.5 g/dL (1.3-4.6) 04/24/25 11:05 Urine Color Yellow (Yellow) 04/24/25 11:40 Urine Appearance Clear (CLEAR) 04/24/25 11:40 Urine pH 5.5 (5-7) 04/24/25 11:40 Ur Specific [place] 1.016 (1.005-1.030) 04/24/25 11:40 Urine Protein Trace (Negative) A 04/24/25 11:40 Urine Glucose (UA) 3+ (Normal) H 04/24/25 11:40 Urine Ketones Negative (Negative) 04/24/25 11:40 Urine Blood 3+ (Negative) A 04/24/25 11:40 Urine Nitrate Negative (Negative) 04/24/25 11:40 Urine Bilirubin Negative (Negative) 04/24/25 11:40 Urine Urobilinogen 1.0 mg/dL (Negative) 04/24/25 11:40 Ur Leukocyte Esterase Negative (Negative) 04/24/25 11:40 Urine RBC 21-50 /hpf (0-2) H 04/24/25 11:40 Urine WBC 0-5 /hpf (0-5) 04/24/25 11:40 Ur Squamous Epith Cells 0-5 /hpf (0-5) 04/24/25 11:40 Amorphous Sediment Not Reportable 04/24/25 11:40 Urine Bacteria None seen /hpf (NONE) 04/24/25 11:40 Hyaline Casts 1.65 /lpf 04/24/25 11:40 No radiology studies performed this visit Discharge Plan Discharge Patient Disposition: Home Clinical Impression: Falls frequently, Decubitus ulcer of sacral region 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 Qualified Code(s): 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 T2DM (type 2 diabetes mellitus) Qualifiers: Diabetes mellitus long wall mining machine helper insulin use: without long wall mining machine helper use Diabetes mellitus complication status: without complication Qualified Code(s): E11.9 - Type 2 diabetes mellitus without complications Condition: Stable Prescriptions: No Action Entresto 24-26 mg tablet 0.5 tab PO BID aspirin 81 mg Tablet,Delayed Release (Dr/Ec) 81 mg PO DAILY Qty: 30 0RF furosemide 40 mg tablet 40 mg PO DAILY atorvastatin 40 mg tablet 40 mg PO QPM clopidogrel 75 mg tablet 75 mg PO DAILY tamsulosin 0.4 mg capsule 0.4 mg PO DAILY pantoprazole 40 mg tablet,delayed release (DR/EC) 40 mg PO DAILY dapagliflozin propanediol [Farxiga] 5 mg tablet 5 mg PO DAILY Qty: 30 0RF gabapentin 600 mg tablet 300 mg PO BID Qty: 1 0RF Discharge Orders: Discharge ED (Routine); Ordered 04/24/25 Ordered By: Familia Silveira Referrals: Marquez Ross MD [Primary Care Provider, Family Practice] Discharge Diet: Diabetic Discharge Activity: Increase activity as tolerated Patient Instructions: Opioid Safety, Pain Management, Patient Portal & Staci Instructions Activity Restrictions/Additional Instructions: [facility]. It is very important that you follow up as instructed or that you return to the Emergency Department should you have concerns or if your condition changes or worsens in any way. Emergency department visits are focused on emergent conditions, in some cases you may require further evaluation on an outpatient basis. You were seen in the emergency room after several falls. There is no sign of any acute injury at this time. 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 Your blood sugar is somewhat elevated but this appears to be chronic you should follow-up your primary care doctor regarding this. Per your request we will make an order for assistance with home health. Follow-up with your primary care doctor regarding discussion of long-term care needs. (Please note that included in your discharge packet is information concerning opioid safety and pain management. This information is given to all patients were discharged from the ER regardless of their discharge diagnosis or the medicines they usually take or are prescribed.) Print Language: Georgian Coding Level of Care Code ED Mash Grinder for Sofiya Gary
[2025-04-24 11:17] LABS: Hematocrit 38.1 % (37-53); Hemoglobin 12.20 g/dL (11.27-16.99); Mean Corpuscular HGB Conc 32.0 g/dL (30-55); Mean Corpuscular Hemoglobin 31.2 pg (27-33); Mean Corpuscular Volume 97.4 fl (82-101); Nucleated Red Blood Cells % 0 %; Platelet Count 151 10^3/cmm (157-399); Red Blood Count 3.91 10^6/uL (3.85-5.65); White Blood Count 7.25 10^3/uL (3.29-11.43)
[2025-04-24 11:40] LABS: Alanine Aminotransferase 13 U/L (0-41); Albumin Level 3.2 g/dL (3.5-5.2); Alkaline Phosphatase 115 U/L (40-130); Anion Gap 17.4 (5-19); Aspartate Amino Transferase 14 U/L (0-40); Blood Urea Nitrogen 23 mg/dL (8-23); Calcium 8.3 mg/dL (8.5-10.5); Carbon Dioxide 22 mmol/L (22-29); Chloride 95 mmol/L (98-107); Creatinine Clr Calc Pharmacy 41.2185; Globulin 3.5 g/dL (1.3-4.6); Glucose 340 mg/dL (65-115); Osmolality Calculated 287 mOsm/kg (285-295); Potassium 4.4 mmol/L (3.5-5.1); Sodium 130 mmol/L (136-145); Total Protein 6.7 g/dL (6.6-8.7)
[2025-04-24 11:56] LABS: Glucose Urine UA 3+ (Normal); Nitrate Urine Negative (Negative); Specific Gravity, Urine 1.016 (1.005-1.030)
[2025-04-24 12:01] LABS: Add Urine Microscopic? YES
--- OUTSIDE RECORDS SUMMARY | 2025-04-24 12:11 | XMS_ITS | Data Portability ---
Author Organization [facility] Address [address] [facility] [address] [place] [address] Assessment No assessment recorded. Plan of Treatment Reminders Order Date Submit Date Provider Last Modified By Organization Details Last Modified Time Details Appointments None recorded. Lab urinalysi s, complete 2024 025 [facility], [address], [facility] 1, [place], [address], 12:54:26 culture, urine 2024 025 [facility], [address] [place] [address] 248, [address] [place], [address], 12:54:26 CMP, serum or plasma 2024 025 SUELLEN [facility], [address], [facility] 1, [place], [address], 5 13:34:59 CBC 2024 025 SUELLEN [facility], [address] [facility] [address], [facility] 1, [place], [address], 5 14:58:05 CMP, serum or plasma 2024 025 [facility], [address], [address], [address], 15:47:33 HbA1c (hemoglob in A1c), blood 2024 [facility], [address] [facility], [address], [place], [address], 08:53:33 lipid panel, serum 2024 [facility], [address] [facility], [address], [place], [address], 08:53:34 TSH, serum or plasma 2024 [facility], [address], [address], [place], [address], 08:53:34 Referral None recorded. Procedures None recorded. Surgeries None recorded. Imaging None recorded. Medication Orders primidone 50 mg tablet 2024 [facility], [address], [place], [address], 15:00:47 Bactrim DS 800 mg-160 mg tablet 2024 [facility], [address], [place], [address], 15:00:47 pantopraz ole 40 mg tablet,de layed release 2024 [facility], [address], [place], [address], 14:35:55 furosemid e 40 mg tablet 2024 [facility], [address], [address], 12:15:08 lidocaine 5 % topical ointment 2023 025 SUELLEN [facility], [address], [place], [address], 14:09:08 Patient TargetsNo targets recorded. Patient InstructionsNo instructions recorded. Reason for Referral None Reported. Results Created Date Observation Date Name Description Value Unit Range Abnormal Flag Note LastModifiedBy Organization Detail LastModifiedTime 11/02/1911/01/2024 CBC WBC 7.2 x10 4.5-10 .5 Not Available [facility] [address] [facility] 1, [place], [address], 11/01/2024 14:58:05 11/02/1911/01/2024 CBC RBC 4.51 x10 4.30-5 .90 Not Available [facility] [address] [facility], [place], [address], 11/01/2024 14:58:05 11/02/1911/01/2024 CBC HGB 14.3 g/dL 13.5-1 8.0 Not Available [facility] [address] [facility] 1, [place], [address], 11/01/2024 14:58:05 11/02/1911/01/2024 CBC HCT 43.7 % 35.0-6 0.0 Not Available [facility] [address] [facility] 1, [place], [address], 11/01/2024 14:58:05 11/02/1911/01/2024 CBC MCV 97.0 fL 80.0-9 9.9 Not Available [facility] [address] [facility] 1, [place], [address], 11/01/2024 14:58:05 11/02/19 11/01/2024 CBC MCH 31.7 pg 27.0-3 2.0 Not Available [facility] [address] [facility], [place], [address], 11/01/2024 14:58:05 11/02/19 25 11/01/2024 CBC MCHC 32.7 g/dL 32.0-3 6.0 Not Available [facility] [address] [facility] 1, [place], [address], 11/01/2024 14:58:05 11/02/1911/01/2024 CBC RDW 14.2 % 11.5-1 4.5 Not Available [facility] [address] [facility] 1, [place], [address], 11/01/2024 14:58:05 11/02/1911/01/2024 CBC plt 175.6 x10 150.0- 451.0 Not Available [facility] [address] [facility], [place], [address], 11/01/2024 14:58:05 11/02/19 25 11/01/2024 CBC lymphocytes % 25.5 % 20.0-5 0.0 Not Available [facility] [address] [facility], [place], [address], 11/01/2024 14:58:05 11/02/1911/01/2024 CBC granulcytes % 68.5 % 30.0-7 0.0 Not Available [facility] [address] [facility], [place], [address], 11/01/2024 14:58:05 11/02/1911/01/2024 CBC monocytes % 4.4 % 2.0-16 .0 Not Available [facility] [address] [address], [place], [address], 11/01/2024 14:58:05 11/02/19 25 11/01/2024 CBC granulcytes# 4.9 x10 Not Veronica ilable [facility] [address] [facility] [address], [place], [address], 11/01/2024 14:58:05 11/02/19 25 11/01/2024 CBC lymphocytes # 1.8 x10 Not Available [facility] [address] [facility] [address], [place], [address], 11/01/2024 14:58:05 11/02/19 25 11/01/2024 CBC monocytes # 0.3 x10 Not Avai lable [facility] [address] [address], [place], [address], 11/01/2024 14:58:05 11/02/19 25 11/01/2024 HBA1C hemaglobin A1C 10.1 4.2-6. 5 high Not Available [facility] [address] [address], [place], [address], 11/01/2024 15:02:34 11/02/19 25 11/01/2024 CMP (MALE ) glucose 233.0 mg/dL 60.0-9 9.0 high Not Available [address] [address], [place], [address], 11/01/2024 15:47:33 11/02/19 25 11/01/2024 CMP (MALE ) BUN (blood urea nitrogen) 19.0 mg/dL 10.0-2 6.0 Not Available [facility] [address] [facility] [address], [place], [address], 11/01/2024 15:47:33 11/02/19 25 11/01/2024 CMP (MALE ) creatinine (serum) 1.0 mg/dL 0.4-1. [address] [facility] [address], [place], [address], 11/01/2024 15:47:33 11/02/1911/01/2024 CMP (MALE ) BUN/creatini ne ratio 19.00 ratio Not Available [facility] [address], [place], [address], 11/01/2024 15:47:33 11/02/19 25 11/01/2024 CMP (MALE ) eGFR calculated 75.0 Not Available [facility] [address], [place], [address], 11/01/2024 15:47:33 11/02/19 25 11/01/2024 CMP (MALE ) total protein 7.6 g/dL 6.0-8. 5 Not Available [facility] [address] [facility] 1, [place], [address], 11/01/2024 15:47:33 11/02/19 25 11/01/2024 CMP (MALE ) total bilirubin 0.8 mg/dL 0.2-1. 3 Not Available [facility] [address] [facility] 1, [place], [address], 11/01/2024 15:47:33 11/02/19 25 11/01/2024 CMP (MALE ) albumin 4.1 g/dL 3.5-5. 5 Not Available [facility] [address] [facility] 1, [place], [address], 11/01/2024 15:47:33 11/02/1911/01/2024 CMP (MALE ) globulin 3.[address] [facility] [address], [place], [address], 11/01/2024 15:47:33 11/02/19 25 11/01/2024 CMP (MALE ) AST (SGOT) 30.0 U/L 0.0-46 .0 Not Available [facility] [address] [facility] 1, [place], [address], 11/01/2024 15:47:33 11/02/1911/01/2024 CMP (MALE ) altv (SGPT) 14.0 U/L 13.0-6 9.0 normal Not Available [facility] [address] [facility] [address], [place], [address], 11/01/2024 15:47:33 11/02/1911/01/2024 CMP (MALE ) A/G ratio 1.2 ratio Not Available [facility] [address] [facility] [address], [place], [address], 11/01/2024 15:47:33 11/02/1911/01/2024 CMP (MALE ) ALP phos 120.0 U/L 30.0-1 40.0 normal Not Available [facility] [address] [facility] [address], [place], [address], 11/01/2024 15:47:33 11/02/1911/01/2024 CMP (MALE ) calcium 9.2 mg/dL 8.4-10 .5 Not Available [facility] [address] [facility] 1, [place], [address], 11/01/2024 15:47:33 11/02/1911/01/2024 CMP (MALE ) sodium 137.0 mmol/ L 136.0- 145.0 Not Available [facility] [address] [facility] [address], [place], [address], 11/01/2024 15:47:33 11/02/19 25 11/01/2024 CMP (MALE ) potassium 4.7 mmol/ L 3.5-5. 1 Not Available [facility] [address] [facility], [place], [address], 11/01/2024 15:47:33 11/02/1911/01/2024 CMP (MALE ) chloride 101.0 mmol/ L 98.0-1 10.0 normal Not Available [facility] [address] [facility] 1, [place], [address], 11/01/2024 15:47:33 11/02/19 25 11/01/2024 CMP (MALE ) C02 26.0 mmol/ L 22.0-3 1.0 Not Available [place] [facility] [address] [facility] 1, [place], [address], 11/01/2024 15:47:33 11/02/1911/01/2024 CMP (MALE ) anion gap 10.0 calc Not Available [place] [facility] [facility] [address] [facility] 1, [place], [address], 11/01/2024 15:47:33 11/02/1911/01/2024 CMP (MALE ) osmolality 292.0 calc Not Available [facility] [address] [facility] 1, [place], [address], 11/01/2024 15:47:33 11/02/1911/01/2024 LIPID PROFI LE (MALE ) cholesterol 108.0 mg/dL 0.0-20 0.0 Not Available [place] [facility] [address] [facility] 1, [place], [address], 11/01/2024 15:47:36 11/02/1911/01/2024 LIPID PROFI LE (MALE ) trig 117.0 mg/dL 0.0-15 0.0 Not Available [facility] [address] [facility] 1, [place], [address], 11/01/2024 15:47:36 11/02/19 25 11/01/2024 LIPID PROFI LE (MALE ) HDL - direct 32.0 mg/dL >40.0 low Not Available [facility] [address] [address], [place], [address], 11/01/2024 15:47:36 11/02/19 25 11/01/2024 LIPID PROFI LE (MALE ) VLDL - direct 23.4 mg/dL Not Available [facility] [address] [facility] [address], [place], [address], 11/01/2024 15:47:36 11/02/19 25 11/01/2024 LIPID PROFI LE (MALE ) LDL - direct 52.6 mg/dL 0.0-13 0.0 Not Available [facility] [address] [address], [place], [address], 11/01/2024 15:47:36 11/02/19 25 11/01/2024 TSH TSH 1.44 uIU/m L 0.49-3 .82 Not Available [facility] [address] [address], [place], [address], 11/01/2024 16:00:46 11/23/19 25 11/22/2024 CMP (MALE ) glucose 168.0 mg/dL 60.0-9 9.0 high Not Available [facility] [address] [address], [place], [address], 11/22/2024 13:34:59 11/23/19 25 11/22/2024 CMP (MALE ) BUN (blood urea nitrogen) 22.0 mg/dL 10.0-2 6.0 Not Available [facility] [address] [address], [place], [address], 11/22/2024 13:34:59 11/23/19 25 11/22/2024 CMP (MALE ) creatinine (serum) 1.0 mg/dL 0.4-1. 5 Not Available [facility] [address], [place], [address], 11/22/2024 13:34:59 11/23/19 25 11/22/2024 CMP (MALE ) BUN/creatini ne ratio 22.00 ratio Not Available [facility] [address] [facility] 1, [place], [address], 11/22/2024 13:34:59 11/23/19 25 11/22/2024 CMP (MALE ) eGFR calculated 75.0 Not Available [facility] [address] [facility] 1, [place], [address], 11/22/2024 13:34:59 11/23/19 25 11/22/2024 CMP (MALE ) total protein 7.3 g/dL 6.0-8. 5 Not Available [facility] [address] [facility] 1, [place], [address], 11/22/2024 13:34:59 11/23/19 25 11/22/2024 CMP (MALE ) total bilirubin 0.7 mg/dL 0.2-1. 3 Not Available [facility] [address] [facility] 1, [place], [address], 11/22/2024 13:34:59 11/23/19 25 11/22/2024 CMP (MALE ) albumin 3.7 g/dL 3.5-5. 5 Not Available [facility] [address] [facility] 1, [place], [address], 11/22/2024 13:34:59 11/23/19 25 11/22/2024 CMP (MALE ) globulin 3.[address] [facility] [address] [facility] 1, [place], [address], 11/22/2024 13:34:59 11/23/19 25 11/22/2024 CMP (MALE ) AST (SGOT) 22.0 U/L 0.0-46 .0 Not Available [facility] [address] [facility] 1, [place], [address], 11/22/2024 13:34:59 11/23/19 25 11/22/2024 CMP (MALE ) altv (SGPT) 16.0 U/L 13.0-6 9.0 normal Not Available [facility] [address] [facility] 1, [place], [address], 11/22/2024 13:34:59 11/23/19 25 11/22/2024 CMP (MALE ) A/G ratio 1.0 ratio Not Available [facility] [address] [address], [place], [address], 11/22/2024 13:34:59 11/23/19 25 11/22/2024 CMP (MALE ) ALP phos 93.0 U/L 30.0-1 40.0 normal Not Available [facility] [address] [address], [place], [address], 11/22/2024 13:34:59 11/23/19 25 11/22/2024 CMP (MALE ) calcium 9.0 mg/dL 8.4-10 .5 Not Available [facility] [address] [facility] [address], [place], [address], 11/22/2024 13:34:59 11/23/19 25 11/22/2024 CMP (MALE ) sodium 139.0 mmol/ L 136.0- 145.0 Not Available [facility] [address] [facility] [address], [place], [address], 11/22/2024 13:34:59 11/23/19 25 11/22/2024 CMP (MALE ) potassium 4.2 mmol/ L 3.5-5. 1 Not Available [facility] [address] [facility] 1, [place], [address], 11/22/2024 13:34:59 11/23/1911/22/2024 CMP (MALE ) chloride 106.0 mmol/ L 98.0-1 10.0 normal Not Available [facility] [address] [facility] 1, [place], [address], 11/22/2024 13:34:59 11/23/1911/22/2024 CMP (MALE ) C02 25.0 mmol/ L 22.0-3 1.0 Not Available [facility] [address] [facility] 1, [place], [address], 11/22/2024 13:34:59 11/23/19 25 11/22/2024 CMP (MALE ) anion gap 8.0 calc Not Available [place] [facility] [address] [facility] 1, [place], [address], 11/22/2024 13:34:59 11/23/1911/22/2024 CMP (MALE ) osmolality 293.7 calc Not Available [facility] [address] [facility], [place], [address], 11/22/2024 13:34:59 Result Notes None recorded. Problems Name Problem SNOMED Code Status Onset Date Resolution Date Notes Provider Name and Address Organization Details Recorded Time CAT scan - NOS Completed 202111/01/2024 CT Scan; Head, normal, 2002.; 022 3:06PM by Fay Wu RN, Office Visit; Promote d; acuity set as *; CHIARA kirkpatrick [place] [facility]CBrenda 14:13:21 Coronary arteriosc lerosis 57791110 Active 2022 CHIARA kirkpatrick [facility]CBrenda 04/25/202 5 14:13:14 Cardiomyo abbi 92150475 Active 2022 CHIARA kirkpatrick, [facility] 5 14:13:14 Gastroeso phageal reflux disease 914330310 Active 2022 CHIARA kirkpatrick, [facility] 5 14:13:14 Benign prostatic hyperplas ia 039343096 Active 2022 CHIARA kirkpatrick, [facility] 5 14:13:14 Type 2 diabetes mellitus 16607816 Active 2022 CHIARA kirkpatrick, [facility] 5 14:13:14 Hyperlipi demia 96825719 Active 2022 CHIARA kirkpatrick, [facility] 14:13:14 Cerebrova scular accident 230442471 Active 2022 Marquez Ross MD [address] [place] [address], [phone] , [facility] 5 15:00:33 Coronary atheroscl erosis 833035816 Active 2023 CHIARA kirkpatrick, [facility] 5 14:13:14 Diabetes mellitus 16943886 Active 2023 CHIARA kirkpatrick, [facility] 5 14:13:14 Chronic systolic heart failure 670880796 Active 2023 CHIARA kirkpatrick, [facility] 5 14:13:14 Osteoarth ritis of knee 940190684 Active 2023 CHIARA kirkpatrick, [facility] 14:13:14 Unsteady when walking 42171877 Active 2023 CHIARA BLOOD null, [facility] 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 22:11:09 Idiopathi c hypotensi on 841972166 Active 2024 SUMAN DALEYRIS null, [facility] 22:10:59 Abscess of buttock 98251471 Active 2024 Marquez Ross MD [address] [place] [address], [phone], [facility] 14:55:09 Essential tremor 187762780 Active 2024 Marquez Ross MD [address] [place] [address], [phone], [facility] 14:56:37 Problem Notes None recorded. Medical Equipment None Reported. Allergies No known drug allergies Medications Name Sig Start Date Stop Date Status Note LastModified by Organization Details LastModified Time furosemid e 40 mg tablet TAKE 1 TABLET BY MOUTH ONCE DAILY 11/22 completed Not Available Not Available Not Available atorvasta tin 40 mg tablet TAKE 1 TABLET BY MOUTH ONCE DAILY active Not Available Not Available No t Available metformin 500 mg tablet Take 1 tablet every day by oral route. 05/28 completed Not Available Not Available Not Available primidone 50 mg tablet Take 1 tablet every day by oral route at bedtime for 30 days. 2024 active Not Available Not Available Not Avai lable gabapenti n 600 mg tablet TAKE 1 TABLET BY MOUTH TWICE DAILY active Not Available Not Available No t Available atorvasta tin 10 mg tablet TAKE 1 TABLET BY MOUTH AT BEDTIME 12/07 completed Not Available Not Available Not Available hydrocodo ne 5 mg-acetam inophen 325 mg tablet TAKE 1 TABLET BY MOUTH EVERY 6 HOURS NEEDED FOR SEVERE PAIN 12/07 completed Not Available Not Available Not Available lisinopri l 20 mg tablet Take 1 tablet every day by oral route. 01/25 completed Not Available Not Available Not Available clopidogr el 75 mg tablet TAKE 1 TABLET BY MOUTH ONCE DAILY active Not Available Not Available No t Available amlodipin e 5 mg tablet TAKE 1 TABLET BY MOUTH ONCE DAILY 05/17 completed Not Available Not Available Not Available spironola ctone 25 mg tablet TAKE 1 TABLET BY MOUTH ONCE DAILY 05/17 completed Not Available Not Available Not Available tamsulosi n 0.4 mg capsule TAKE 1 CAPSULE BY MOUTH ONCE DAILY active Not Available Not Available No t Available phenazopy ridine 100 mg tablet TAKE 1 TABLET BY MOUTH THREE TIMES DAILY NEEDED FOR URINARY PAIN 05/17 completed Not Available Not Available Not Available pantopraz ole 40 mg tablet,de layed release Take 1 tablet by mouth once daily 2024 active Not Available Not Available Not Avai lable lisinopri l 10 mg tablet TAKE 1 TABLET BY MOUTH ONCE DAILY 05/17 completed Not Available Not Available Not Available furosemid e 20 mg tablet Take 1 tablet by mouth once daily active Not Available Not Available No t Available metoprolo l succinate ER 25 mg tablet,ex tended release 24 hr TAKE 1 TABLET BY MOUTH IN THE EVENING FOR BLOOD PRESSURE 05/17 completed Not Available Not Available Not Available pioglitaz one 30 mg tablet TAKE 1 TABLET BY MOUTH ONCE DAILY 11/22 completed Not Available Not Available Not Available lisinopri l 40 mg tablet TAKE 1 TABLET BY MOUTH IN THE MORNING 12/07 completed Not Available Not Available Not Available finasteri de 5 mg tablet Take 1 tablet by mouth once daily for 90 days 09/24 completed Not Available Not Available Not Available Bactrim DS 800 mg-160 mg tablet Take 1 tablet every 12 hours by oral route for 10 days. 2024 active Not Available Not Available Not Avai lable atorvasta tin at bedtime 05/17 completed Recorded 10/26/19 22 7:39AM by Marquez Ross MD, Refill Request; Refill Quantity : 90; Tablet; Not Available Not Available Not Available lisinopri l in the morning 05/17 completed Recorded 07/15/19 21 8:52AM by Marquez Ross MD, Office Visit; Refill Quantity : 90; Tablet; Not Available Not Available Not Available metoprolo l succinate in the evening for BP 05/17 completed Recorded 08/02/19 23 12:01PM by Marquez Ross MD, Refill Request; Refill Quantity : 90; Tablet; Not Available Not Available Not Available metformin two times daily 05/17 completed Recorded 10/26/19 22 7:39AM by Marquez Ross MD, Refill Request; Refill Quantity : 180; Tablet; Not Available Not Available Not Available lidocaine 5 % topical ointment APPLY TO AFFECTED AREA(S) BY TOPICAL ROUTE 1-4 TIMES DAILY NEEDED 11/01 completed Not Available Not Available Not Available Invokana 100 mg tablet daily 05/17 completed Recorded 09/17/19 22 3:06PM by Fay Wu RN, Office Visit; Refill Quantity : 30; Tablet; Not Available Not Available Not Available Entresto 24 mg-26 mg tablet Take 0.5 tablets twice a day by oral route. active Not Available Not Available No t Available OneTouch Verio Flex Meter USE DIRECTED active Not Available Not Available No t Available OneTouch Delica Plus Lancet 30 gauge USE 1 LANCET DIRECTED TWICE DAILY active Not Available Not Available No t Available aspirin 81 mg capsule Take 1 capsule every day by oral route. active Not Available Not Available No t Available Contour Plus Test Strip Take 1 strip twice a day by miscell. route for 90 days. 2024 active Not Available Not Available Not Avai lable Vitals Date Recorded Body height Body mass index (BMI) Body weight Heart rate Systolic And Diastolic Provider Name and Address Organization Details Last Updated DateTime 11/01/2024 180.34 cm 29.3 kg/m2 95924.4 g 78 /min 128/62 mm[Hg] CHIARA BLOOD [facility] 14:08:23 Date Recorded Body height Body mass index (BMI) Body weight Oxygen saturation Oxygen saturation in Arterial blood by Pulse oximetry Heart rate Systolic And Diastolic Provider Name and Address Organization Details Last Updated DateTime 5 180.34 cm 29.3 kg/m2 71967.4 g 88 % 88 % 69 /min 120/62 mm[Hg] [facility] 5 12:08:53 Date Recorded Body height Body mass index (BMI) Body weight Oxygen saturation Oxygen saturation in Arterial blood by Pulse oximetry Heart rate Systolic And Diastolic Provider Name and Address Organization Details Last Updated DateTime 4 180.34 cm 29.3 kg/m2 51222.4 g 89 % 89 % 87 /min 86/58 mm[Hg] [facility] 4 14:05:07 Date Recorded Body height Body mass index (BMI) Body weight Oxygen saturation Oxygen saturation in Arterial blood by Pulse oximetry Heart rate Systolic And Diastolic Provider Name and Address Organization Details Last Updated DateTime 5 180.34 cm 29.3 kg/m2 39071.4 g 88 % 88 % 55 /min 122/60 mm[Hg] [facility] 5 14:21:39 Date Recorded Body height Body mass index (BMI) Body weight Heart rate Systolic And Diastolic Provider Name and Address Organization Details Last Updated DateTime 05/28/2024 180.34 cm 29.3 kg/m2 81845.4 g 82 /min 92/58 mm[Hg] CHIARA BLOOD [facility] 4 14:12:14 Social History None recorded. Functional Status Question Answer Note LastModified by Organizat ion Details LastModified Time Do you use any illicit or recreational drugs? No [email or web address] Information not available 12/07/2022 What is your level of alcohol consumption? None [email or web address] Information not available 12/07/2022 Mental Status None recorded. Family History Nothing Reported. Medical History Condition Response Other N Gout N Kidney Stones N Blood Diseases N Hyperthyroidism N Breast Cancer N Blood Transfusion N Lung Disease N Hypothyroidism N Depression N COPD N Developmental or Behavioral Disorders N Defects or Inherited Disease N Breast Problem N Difficulty Swallowing N Anesthesia Complications N Meniere's disease N Anxiety Disorder N Muscle, Joint, or Bone Problems Y Vision or Eye Problems Y Arthritis Y Polyps N Infertility N Cancer N Varicosities N Stroke N Endometriosis N Bladder or Kidney Problems N High Cholesterol N Liver Disease N Fibromyalgia N Kidney Disease N Allergies/Hayfever N Heart Problems Y Ear or Hearing Problems Y Hospitalizations Y Thyroid Problems N GI Problems N ADD/ADHD N Skin Problems N Eating Disorder N Anemia N Constipation N Mental Illness N Ovarian Cancer N Diabetes Y Bedwetting N Seizures/Epilepsy N Eczema N Diverticulitis N Abuse/Domestic Violence N Asthma N Reflux/GERD Y Hepatitis N Pulmonary Embolism N Pre-Eclampsia N Hypertension N Chronic Ear Infections N Osteoporosis N Chicken Pox N Autism Spectrum Disorder (ASD) N Thrombophilias N Immunizations Vaccine Type Date Status Note Provider Nam e and Address Organization Details Recorded Time Influenza, adjuvanted, quadrivalent, PF 06/13/2022 completed SUMAN kirkpatrick [facility] 12/07/2022 10:55:28 COVID-19, mRNA, LNP-S, PF, 100 mcg/0.5mL dose or 50 mcg/0.25mL dose 01/06/2021 completed SUMAN kirkpatrick [facility] 12/07/2022 10:55:28 COVID-19, mRNA, LNP-S, PF, 100 mcg/0.5mL dose or 50 mcg/0.25mL dose 02/04/2021 completed SUMAN kirkpatrick [facility] 12/07/2022 10:55:28 COVID-19, mRNA, LNP-S, bivalent, PF, 50 mcg/0.5 mL or 25mcg/0.25 mL dose 06/13/2022 completed SUMAN kirkpatrick [facility] 12/07/2022 10:55:28 Past Encounters Encounter ID Performer Location Encounter Start Date Encounter Closed Date Diagnosis/Indication Diagnosis SNOMED-CT Code Diagnosis ICD10 Code Diagnosis IMO Codes Diagnosis Note [id number] Marquez Ross MD [facility] ([facility]) [address] [place] [address] 12/07/2022 10:47:05 12/07/2022 13:10:10 Coronary arteriosclerosis 27097237 I25.10 s/p stent and feeling better. He is followed by Dr. Moreau. Cardiomyopathy 27369225 I42.9 Last EF was 30%. Gastroesop hageal reflux disease 087896521 K21.9 better with Pantoprazo le Benign pro static hyperplasia 702413375 N40.1 Type 2 rema betes mellitus 45177627 E11.9 [id number] Marquez Ross MD [facility] ([facility]) [address] [place] [phone] 5 05/17/2023 13:50:54 05/17/2023 15:33:58 Cerebrovascular accident 284504154 I63.9 Cardiomyopathy 39597939 I42.9 Last EF was 30%. History of primary malignant neoplasm of kidney 098175190 Z85.528 He is following up with his urologist in [place] Dr. Agustin. [id number] Marquez Ross MD [facility] ([facility]) [address] [place] [address] 5 09/25/2023 14:22:26 09/25/2023 15:05:30 Diabetes mellitus 85678391 E13.42 History of cerebrovascular accident 983010482 Z86.73 Coronary atherosclerosis 949356912 I25.10 Cardiomyopathy 10685688 I42.9 Last EF was 30%. [id number] Marquez Ross MD [facility] ([facility]) [address] [place] [address] 5 01/26/2024 13:44:37 01/26/2024 14:21:04 Diabetes mellitus 80683481 E11.9 Benign pro static hyperplasia 833825518 N40.1 Coronary arteriosclerosis 49135611 I25.10 s/p stent and feeling better. He is followed by Dr. Moreau. Chronic sy stolic heart failure 395325582 I50.22 Continue Entresto [id number] Marquez Ross MD [facility] ([facility]) [address] [place] [address] 5 05/28/2024 13:46:22 05/29/2024 14:30:39 Cerebrovascular accident 050802607 I63.9 Gastroesop hageal reflux disease 417705335 K21.9 better with Pantoprazo le Benign pro static hyperplasia 418788000 N40.1 Type 2 rema betes mellitus 72627724 E11.9 Chronic sy stolic heart failure 439615532 I50.22 Continue Entresto Coronary atherosclerosis 171667830 I25.10 Osteoarthr itis of knee 633109215 M17.9 Unsteady when walking 22 162305 R26.89 [id number] Marquez Ross MD [facility] ([facility]) [address] [place] [address] 5 11/01/2024 13:53:36 11/01/2024 14:39:09 Unsteady when walking 95966596 R26.89 stable Cerebrovas cular accident 477667168 I63.9 Osteoarthr itis of knee 692353978 M17.9 Type 2 rema betes mellitus 63888461 E11.9 Hyperlipidemia 59414622 E78.5 Chronic sy stolic heart failure 587515663 I50.22 Continue Entresto Coronary atherosclerosis 055529351 I25.10 Diabetes mellitus 122319 09 E11.9 Cardiomyopathy 81974297 I42.9 Last EF was 30%. Gastroesop hageal reflux disease 145299876 K21.9 better with Pantoprazo le Bilateral cortical age-related cataract eyes 0675987947 28310 H25.738 3504554 Edema 310391061 R60.9 [id number] Marquez Ross MD [facility] (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 Will try to get Farxiga. Impacted c erumen in right ear 3746420083 100067 H61.21 581998 Dysuria 49571111 R30.0 09475 [id number] Marquez Ross MD [facility] ([facility]) [address] [place] [address]212 5 04/16/2025 14:08:13 04/16/2025 15:20:28 Cerebrovascular accident 721494510 I63.9 stable. Idiopathic hypotension 799354254 I95.0 258989 Abscess of buttock 06736 003 L02.31 4511338 Essential tremor 8302916 09 G25.0 08009 Health Concerns Section Related Observation LastModified by Organization Detai ls LastModified Time None Recorded Concern Status LastModified by Organization Details LastModified Time None Recorded Advance Directives Directive None Recorded Payers Insurance Date Sequence Insurance Name Policy Number Policy Jason Covered Member ID Jason Member ID Guarantor Name 04/22/2025 1 [facility] (MEDICARE REPLACEMENT/A DVANTAGE - HMO) [id number] Diogenes Mustafa [id number] Diogenes Mustafa 12/07/2022 1 MEDICARE B-[place]: [place]PS Diogenes Cottohugh [id number] Diogenes Mustafa Notes Date Note Type Note Provider Name and Address Organization Details Recorded Time 4 text/html DiabetesReported by PatientHPIFor self care, patient reportsnot monitoring home glucosebut reportstaking aspirin daily. For associated symptoms, patient reportsincreased urinationandblurred visionbut reportsno increased thirstandno increased appetite. For duration, patient reportschronic. For control, patient reportsusually well controlledandtreated with diet and oral medications (metformin.). For compliance, patient reportscompliant with medicationsandcompliant with follow-up visits. HyperlipidemiaReported by PatientHPIFor duration, patient reportschronic. For risk factors, patient reportsdiabetesandhypertens ion. For control, patient reportsusually well controlled. For adherence to treatment plan, patient reportstakes medications as prescribed. Hypertension IM/FMReported by PatientHPIFor quality, patient reportshere for check-up. For severity, patient reportsmild. For onset/timing, patient reportsgradual onset. For alleviating factors, patient reportsmedication. For associated symptoms, patient reportsno shortness of breath,no palpitations,no headaches, andno chest pain. For risk factors, patient reportsdiabetes. Marquez Ross MD [address] [place] [address], [phone], [facility]da 01/26/2024 14:20:35 4 text/html Reflux/GERDReported by PatientHPIFor severity, patient reportsimproving. Marquez Ross MD [address] [place] [address], [phone], [facility] 05/28/2024 14:33:43 5 text/html DiabetesReported by PatientHPIFor associated symptoms, patient reportsdizzinessbut reportsno weight gain,no weight loss,no sweats, andno headaches. For self care, patient reportsmonitoring glucose __andseeing eye doctor regularly. HyperlipidemiaReported by PatientHPIFor adherence to treatment plan, patient reportstakes medications as prescribed. Marquez Ross MD [address] [place] [address], [phone], [facility] 11/01/2024 14:38:12 5 text/html Would like to discuss medications today. Marquez Ross MD [address] [place] [address], [phone], [facility] 11/22/2024 13:17:13 5 text/html Hypertension IM/FMReported by PatientHPIFor severity, patient reportsstage 2 (>140/>90 mmhg). For associated symptoms, patient reportsshortness of breathbut reportsno palpitationsandno chest pain. For quality, patient reportshere for check-up. For onset/timing, patient reportsgradual onset. Has been having weakness.Has stopped taking his Entresto due to him being weak, has been off of that for the past week.Dr. Moreau has let him decrease it to 0.5 tab BID but the medication still makes him too weak.Has been having some urinary incontinence. Marquez Ross MD [address] [place] [address], [phone], [facility] 04/16/2025 15:00:57
[2025-04-24 14:38] VITALS: BP 146/77; PULSE 66; RESP 18; O2SAT 95
== END 2025-04-24 14:36 | disposition home or self-care (01) ==
PROVIDERS: Emergency Provider Family Medicine; PCP Family Medicine
DX: L89.159 Pressure ulcer of sacral region, unspecified stage (principal); R29.6 Repeated falls; C66.1 Malignant neoplasm of right ureter; E11.9 Type 2 diabetes mellitus without complications; Z79.82 Long term (current) use of aspirin; Z79.02 Long term (current) use of antithrombotics/antiplatelets; I10 Essential (primary) hypertension
CPT/HCPCS: 36415; 80053; 81001; 85025; 87040; 87086; 93005; 99284

== ENCOUNTER 2025-06-27 16:25 | Emergency (ER) | payer MEDICARE, SELFPAY ==
[2025-06-27] VITALS (9 sets, daily range): BP systolic 101–131; BP diastolic 54–70; PULSE 88–111; RESP 16–34; TEMP 36.7–37.1; O2SAT 90–95; BMI 28.5
--- OUTSIDE RECORDS SUMMARY | 2025-06-27 16:28 | XMS_ITS | Continuity of Care Document ---
Author Organization [facility], LBrenda[facility], [facility] ([facility]) Address [address] [address] Assessment No assessment recorded. Plan of Treatment Reminders Order Date Submit Date Provider Last Modified By Organization Details Last Modified Time Details Appointments None recorded. Lab None recorded. Referral None recorded. Procedures None recorded. Surgeries None recorded. Imaging None recorded. Medication Orders primidone 50 mg tablet 2024 [facility], [address], [place], [address], 15:00:47 Bactrim DS 800 mg-160 mg tablet 2024 [facility], [address], [place], [address], 05:00:55 Patient TargetsNo targets recorded. Patient InstructionsNo instructions recorded. Reason for Referral None Reported. Problems Name Problem SNOMED Code Status Onset Date Resolution Date Notes Provider Name and Address Organization Details Recorded Time CAT scan - NOS Completed 202111/01/2024 CT Scan; Head, normal, 2002.; 022 3:06PM by Fay Wu RN, Office Visit; Promote d; acuity set as *; CHIARA kirkpatrick [facility], Elliot[facility]ye 14:13:21 Coronary arteriosc lerosis 76363489 Active 2022 CHIARA kirkpatrick [facility] 5 14:13:14 Cardiomyo abbi 23992291 Active 2022 CHIARA kirkpatrick, [facility] 5 14:13:14 Gastroeso phageal reflux disease 219751244 Active 2022 CHIARA kirkpatrick, [facility] 5 14:13:14 Benign prostatic hyperplas ia 197923615 Active 2022 CHIARA BLOOD null, [facility] 5 14:13:14 Type 2 diabetes mellitus 51517772 Active 2022 CHIARA kirkpatrick, [facility] 5 14:13:14 Hyperlipi demia 20307485 Active 2022 CHIARA BLOOD null, [facility] 5 14:13:14 Cerebrova scular accident 668007029 Active 2022 Marquez Ross MD [address] [place] [address], [phone] , [facility] 5 15:00:33 Coronary atheroscl erosis 135254685 Active 2023 CHIARA kirkpatrick, [facility] 5 14:13:14 Diabetes mellitus 98149256 Active 2023 CHIARA BLOOD null, [facility] 5 14:13:14 Chronic systolic heart failure 671043077 Active 2023 CHIARA kirkpatrick, [facility] 5 14:13:14 Osteoarth ritis of knee 744671569 Active 2023 CHIARA kirkpatrick, [facility], L.LTye 14:13:14 Unsteady when walking 64393694 Active 2023 CHIARA SHARIFAJULIANO kaya, [facility], [facility] 14:13:13 Bilateral cortical age-relat ed cataract eyes 98055248443 9101 Active 2024 SUMAN kirkpatrick [facility], [facility] 22:11:09 Idiopathi c hypotensi on 358277521 Active 2024 SUMAN kirkpatrick [facility], [facility] 22:10:59 Abscess of buttock 80375754 Active 2024 Marquez Ross MD [address] [place] [address], [phone], [facility], Dominga 14:55:09 Essential tremor 277392053 Active 2024 Marquez Ross MD [address] [place] [address], [phone], [facility], [facility]renda[facility] 14:56:37 Problem Notes None recorded. Medical Equipment [...] Available Not Available primidone 50 mg tablet TAKE 1 TABLET BY MOUTH ONCE DAILY AT BEDTIME active Not Available Not Available No t Available gabapenti n 600 mg tablet TAKE 1 [...] pantopraz ole 40 mg tablet,de layed release TAKE 1 TABLET BY MOUTH ONCE DAILY active Not Available Not Available No t Available lisinopri l 10 mg tablet TAKE 1 TABLET BY MOUTH ONCE DAILY 05/17 completed Not Available Not Available Not Available furosemid e 20 mg tablet TAKE 1 TABLET BY MOUTH [...] hours by oral route for 10 days. 05/03 completed Not Available Not Available Not Available atorvasta tin at bedtime 05/17 completed Recorded [...] mass index (BMI) Body weight Oxygen saturation Heart rate Systolic And Diastolic Provider Name and Address Organization Details Last Updated DateTime 5 180.34 cm 29.3 kg/m2 44862.4 g 88 % 55 /min 122/60 mm[Hg] SUMAN ESPINAL [facility]. 5 14:21:39 Social History None recorded. Functional Status Question Answer Note LastModified by Organizat ion Details LastModified Time Do you use any illicit or recreational drugs? No [email or web address] Information not available 12/07/2022 What is your level of alcohol consumption? None [email or web address] Information not available 12/07/2022 Mental Status None recorded. Family History Nothing Reported. Medical History Condition Response Other N Gout N Kidney Stones N Blood Diseases N Hyperthyroidism N Breast Cancer N Blood Transfusion N Depression N COPD N Lung Disease N Hypothyroidism N Defects or Inherited Disease N Developmental or Behavioral Disorders N Breast Problem N Difficulty Swallowing N Anesthesia Complications N Anxiety Disorder N Meniere's disease N Muscle, Joint, or Bone Problems Y Vision or Eye Problems Y Arthritis Y Polyps N Infertility N Cancer N Varicosities N Stroke N Endometriosis N Bladder or Kidney Problems N High Cholesterol N Liver Disease N Fibromyalgia N Kidney Disease N Allergies/Hayfever N Heart Problems Y Ear or Hearing Problems Y Hospitalizations Y Thyroid Problems N GI Problems N ADD/ADHD N Eating Disorder N Skin Problems N Anemia N Constipation N Mental Illness N Ovarian Cancer N Diabetes Y Bedwetting N Seizures/Epilepsy N Eczema N Diverticulitis N Abuse/Domestic Violence N Asthma N Reflux/GERD Y Hepatitis N Pulmonary Embolism N Chronic Ear Infections N Pre-Eclampsia N Hypertension N Chicken Pox N Autism Spectrum Disorder (ASD) N Osteoporosis N Thrombophilias N Immunizations Vaccine Type Date Status Note Provider Nam e and Address Organization Details Recorded Time Influenza, adjuvanted, quadrivalent, PF 06/13/2022 [facility] 12/07/2022 10:55:28 COVID-19, mRNA, LNP-S, PF, 100 mcg/0.5mL dose or 50 mcg/0.25mL dose 01/06/2021 completed SUMAN kirkpatrick [facility] 12/07/2022 10:55:28 COVID-19, mRNA, LNP-S, PF, 100 mcg/0.5mL dose or 50 mcg/0.25mL dose 02/04/2021 jean-paul kirkpatrick [facility] 12/07/2022 10:55:28 COVID-19, mRNA, LNP-S, bivalent, PF, 50 mcg/0.5 mL or 25mcg/0.25 mL dose 06/13/2022 completed SUMAN kirkpatrick [facility] 12/07/2022 10:55:28 Past Encounters Encounter ID Performer Location Encounter Start Date Encounter Closed Date Diagnosis/Indication Diagnosis SNOMED-CT Code Diagnosis ICD10 Code Diagnosis IMO Codes Diagnosis Note [id number] Marquez Ross MD [facility] ([facility]) [address] [place] [address] 04/16/2025 14:08:13 04/16/2025 15:20:28 Cerebrovascular accident 494246808 I63.9 stable. Idiopathic hypotension 828514467 I95.0 016626 Abscess of buttock 96823 003 L02.31 7719607 Essential tremor 6978523 09 G25.0 01336 Health Concerns Section Related Observation LastModified by Organization Detai ls LastModified Time None Recorded Concern Status LastModified by Organization Details LastModified Time None Recorded Payers Encounter Date Sequence Insurance Name Policy Number Policy Jason Covered Member ID Jason Member ID Guarantor Name 04/16/2025 1 [facility] (MEDICARE REPLACEMENT/A DVANTAGE - HMO) [id number] Diogenes Mustafa [id number] Diogenes Mustafa Notes Date Note Type Note Provider Name and Address Organization Details Recorded Time 04/16/2025 text/html Hypertension IM/FMReported by PatientHPIFor severity, patient [...] having some urinary incontinence. Marquez Ross MD [address] [place] [address], [phone], [facility] 04/16/2025 15:00:57
--- OUTSIDE RECORDS SUMMARY | 2025-06-27 16:29 | XMS_ITS | Data Portability ---
Author Organization [facility] Address [address] [facility] [address] [place] [address] Assessment No assessment recorded. Plan of Treatment Reminders Order Date Submit Date Provider Last Modified By Organization Details Last Modified Time Details Appointments None recorded. Lab urinalysi s, complete 2024 025 [facility], [address], [facility], [place], [address], 12:54:26 culture, urine 2024 025 [facility], [address] [place] [address] 248, [address] [place], [address], 12:54:26 CMP, serum or plasma 2024 025 SUELLEN [facility], [address], [facility], [place], [address], 5 13:34:59 CBC 2024 025 SUELLEN [facility], [address], [facility], [place], [address], 5 14:58:05 CMP, serum or plasma 2024 025 [facility], [address], [address], [address], 15:47:33 HbA1c (hemoglob in A1c), blood 2024 [facility], [address] [facility], [address], [place], [address], 08:53:33 lipid panel, serum 2024 [facility], [address], [facility], [place], [address], 08:53:34 TSH, serum or plasma 2024 [facility], [address], [address], [place], [address], 08:53:34 Referral None recorded. Procedures None recorded. Surgeries None recorded. Imaging None recorded. Medication Orders primidone 50 mg tablet 2024 [facility], [address], [place], [address], 15:00:47 Bactrim DS 800 mg-160 mg tablet 2024 [facility], [address], [place], [address], 05:00:55 pantopraz ole 40 mg tablet,de layed release 2024 [facility], [address], [place], [address], 14:35:55 furosemid e 40 mg tablet 2024 [facility], [address], [place], [address], 12:15:08 lidocaine 5 % topical ointment 2023 025 [facility], [address], [place], [address], 14:09:08 Patient TargetsNo targets recorded. Patient InstructionsNo instructions recorded. Reason for Referral None Reported. Results Created Date Observation Date Name Description Value Unit Range Abnormal Flag Note LastModifiedBy Organization Detail LastModifiedTime 11/02/1911/01/2024 CBC WBC 7.2 x10 4.5-10 .5 Not Available [facility] [address] [facility] 1, [place], [address], 11/01/2024 14:58:05 11/02/1911/01/2024 CBC RBC 4.51 x10 4.30-5 .90 Not Available [facility] [address] [facility], [place], [address], 11/01/2024 14:58:05 11/02/1911/01/2024 CBC HGB 14.3 g/dL 13.5-1 8.0 Not Available [facility] [address] [facility] 1, [place], [address], 11/01/2024 14:58:05 11/02/1911/01/2024 CBC HCT 43.7 % 35.0-6 0.0 Not Available [facility] [address] [facility], [place], [address], 11/01/2024 14:58:05 11/02/1911/01/2024 CBC MCV 97.0 fL 80.0-9 9.9 Not Available [facility] [address] [facility] 1, [place], [address], 11/01/2024 14:58:05 11/02/19 11/01/2024 CBC MCH 31.7 pg 27.0-3 2.0 Not Available [facility] [address] [facility], [place], [address], 11/01/2024 14:58:05 11/02/19 25 11/01/2024 CBC MCHC 32.7 g/dL 32.0-3 6.0 Not Available [facility] [address] [facility] 1, [place], [address], 11/01/2024 14:58:05 11/02/1911/01/2024 CBC RDW 14.2 % 11.5-1 4.5 Not Available [facility] [address] [facility] 1, [place], [address], 11/01/2024 14:58:05 11/02/1911/01/2024 CBC plt 175.6 x10 150.0- 451.0 Not Available [facility] [address] [facility] [address], [place], [address], 11/01/2024 14:58:05 11/02/19 25 11/01/2024 CBC lymphocytes % 25.5 % 20.0-5 0.0 Not Available [facility] [address] [facility] [address], [place], [address], 11/01/2024 14:58:05 11/02/1911/01/2024 CBC granulcytes % 68.5 % 30.0-7 0.0 Not Available [facility] [address] [facility] [address], [place], [address], 11/01/2024 14:58:05 11/02/1911/01/2024 CBC monocytes % 4.4 % 2.0-16 .0 Not Available [facility] [address] [address], [place], [address], 11/01/2024 14:58:05 11/02/19 25 11/01/2024 CBC granulcytes# 4.9 x10 Not Veronica ilable [facility] [address] [facility] [address], [place], [address], 11/01/2024 14:58:05 11/02/19 25 11/01/2024 CBC lymphocytes # 1.8 x10 Not Available [facility] [address] [facility] [address], [place], [address], 11/01/2024 14:58:05 11/02/19 25 11/01/2024 CBC monocytes # 0.3 x10 Not Avai lable [facility] [address] [address], [place], [address], 11/01/2024 14:58:05 11/02/19 25 11/01/2024 HBA1C hemaglobin A1C 10.1 4.2-6. 5 high Not Available [facility] [address] [address], [place], [address], 11/01/2024 15:02:34 11/02/19 25 11/01/2024 CMP (MALE ) glucose 233.0 mg/dL 60.0-9 9.0 high Not Available [address] [address], [place], [address], 11/01/2024 15:47:33 11/02/19 25 11/01/2024 CMP (MALE ) BUN (blood urea nitrogen) 19.0 mg/dL 10.0-2 6.[address] [facility] [address] [facility] [address], [place], [address], 11/01/2024 15:47:33 11/02/19 25 11/01/2024 CMP (MALE ) creatinine (serum) 1.0 mg/dL 0.4-1. 5 Not Available [facility] [address], [place], [address], 11/01/2024 15:47:33 11/02/1911/01/2024 CMP (MALE ) BUN/creatini ne ratio 19.00 ratio Not Available [facility] [address], [place], [address], 11/01/2024 15:47:33 11/02/19 25 11/01/2024 CMP (MALE ) eGFR calculated 75.0 Not Available [facility] [address], [place], [address], 11/01/2024 15:47:33 11/02/19 25 11/01/2024 CMP (MALE ) total protein 7.6 g/dL 6.0-8. 5 Not Available [facility] [address] [facility], [place], [address], 11/01/2024 15:47:33 11/02/19 25 11/01/2024 CMP (MALE ) total bilirubin 0.8 mg/dL 0.2-1. 3 Not Available [facility] [address] [facility], [place], [address], 11/01/2024 15:47:33 11/02/19 25 11/01/2024 CMP (MALE ) albumin 4.1 g/dL 3.5-5. 5 Not Available [facility] [address] [facility], [place], [address], 11/01/2024 15:47:33 11/02/1911/01/2024 CMP (MALE ) globulin 3.5 calc Not Available [facility] [address], [place], [address], 11/01/2024 15:47:33 11/02/19 25 11/01/2024 CMP (MALE ) AST (SGOT) 30.0 U/L 0.0-46 .0 Not Available [facility] [address] [facility] 1, [place], [address], 11/01/2024 15:47:33 11/02/1911/01/2024 CMP (MALE ) altv (SGPT) 14.0 U/L 13.0-6 9.0 normal Not Available [facility] [address] [facility] [address], [place], [address], 11/01/2024 15:47:33 11/02/1911/01/2024 CMP (MALE ) A/G ratio 1.2 ratio Not Available [facility] [address] [facility] [address], [place], [address], 11/01/2024 15:47:33 11/02/1911/01/2024 CMP (MALE ) ALP phos 120.0 U/L 30.0-1 40.0 normal Not Available [facility] [address] [facility] [address], [place], [address], 11/01/2024 15:47:33 11/02/1911/01/2024 CMP (MALE ) calcium 9.2 mg/dL 8.4-10 .5 Not Available [facility] [address] [facility] [address], [place], [address], 11/01/2024 15:47:33 11/02/1911/01/2024 CMP (MALE ) sodium 137.0 mmol/ L 136.0- 145.0 Not Available [facility] [address] [facility] [address], [place], [address], 11/01/2024 15:47:33 11/02/19 25 11/01/2024 CMP (MALE ) potassium 4.7 mmol/ L 3.5-5. 1 Not Available [facility] [address] [facility], [place], [address], 11/01/2024 15:47:33 11/02/1911/01/2024 CMP (MALE ) chloride 101.0 mmol/ L 98.0-1 10.0 normal Not Available [facility] [address] [facility] 1, [place], [address], 11/01/2024 15:47:33 11/02/19 25 11/01/2024 CMP (MALE ) C02 26.0 mmol/ L 22.0-3 1.0 Not Available [facility] [address] [facility] 1, [place], [address], 11/01/2024 15:47:33 11/02/1911/01/2024 CMP (MALE ) anion gap 10.0 calc Not Available [facility] [address] [facility] 1, [place], [address], 11/01/2024 15:47:33 11/02/1911/01/2024 CMP (MALE ) osmolality 292.0 calc Not Available [facility] [address] [facility] 1, [place], [address], 11/01/2024 15:47:33 11/02/1911/01/2024 LIPID PROFI LE (MALE ) cholesterol 108.0 mg/dL 0.0-20 0.0 Not Available [facility] [address] [facility] 1, [place], [address], 11/01/2024 15:47:36 11/02/1911/01/2024 LIPID PROFI LE (MALE ) trig 117.0 mg/dL 0.0-15 0.0 Not Available [facility] [address] [facility] 1, [place], [address], 11/01/2024 15:47:36 11/02/19 25 11/01/2024 LIPID PROFI LE (MALE ) HDL - direct 32.0 mg/dL >40.0 low Not Available [facility] [address] [address], [place], [address], 11/01/2024 15:47:36 11/02/19 25 11/01/2024 LIPID PROFI LE (MALE ) VLDL - direct 23.4 mg/dL Not Available [facility] [address] [facility] [address], [place], [address], 11/01/2024 15:47:36 11/02/19 25 11/01/2024 LIPID PROFI LE (MALE ) LDL - direct 52.6 mg/dL 0.0-13 0.[address] [facility] [address] [address], [place], [address], 11/01/2024 15:47:36 11/02/19 25 11/01/2024 TSH TSH 1.44 uIU/m L 0.49-3 .[address] [facility] [address] [address], [place], [address], 11/01/2024 16:00:46 11/23/19 25 11/22/2024 CMP (MALE ) glucose 168.0 mg/dL 60.0-9 9.0 high Not Available [facility] [address] [address], [place], [address], 11/22/2024 13:34:59 11/23/19 25 11/22/2024 CMP (MALE ) BUN (blood urea nitrogen) 22.0 mg/dL 10.0-2 6.[address] [facility] [address] [address], [place], [address], 11/22/2024 13:34:59 11/23/19 25 11/22/2024 CMP (MALE ) creatinine (serum) 1.0 mg/dL 0.4-1. 5 Not Available [facility] [address], [place], [address], 11/22/2024 13:34:59 11/23/19 25 11/22/2024 CMP (MALE ) BUN/creatini ne ratio 22.00 ratio Not Available [facility] [address] [facility], [place], [address], 11/22/2024 13:34:59 11/23/19 25 11/22/2024 CMP (MALE ) eGFR calculated 75.0 Not Available [facility] [address] [facility], [place], [address], 11/22/2024 13:34:59 11/23/19 25 11/22/2024 CMP (MALE ) total protein 7.3 g/dL 6.0-8. 5 Not Available [facility] [address] [facility], [place], [address], 11/22/2024 13:34:59 11/23/19 25 11/22/2024 CMP (MALE ) total bilirubin 0.7 mg/dL 0.2-1. 3 Not Available [facility] [address] [facility], [place], [address], 11/22/2024 13:34:59 11/23/19 25 11/22/2024 CMP (MALE ) albumin 3.7 g/dL 3.5-5. 5 Not Available [facility] [address] [facility], [place], [address], 11/22/2024 13:34:59 11/23/19 25 11/22/2024 CMP (MALE ) globulin 3.6 calc Not Available [facility] [address] [facility], [place], [address], 11/22/2024 13:34:59 11/23/19 25 11/22/2024 CMP (MALE ) AST (SGOT) 22.0 U/L 0.0-46 .0 Not Available [facility] [address] [facility] 1, [place], [address], 11/22/2024 13:34:59 11/23/19 25 11/22/2024 CMP (MALE ) altv (SGPT) 16.0 U/L 13.0-6 9.0 normal Not Available [facility] [address] [facility] 1, [place], [address], 11/22/2024 13:34:59 11/23/19 25 11/22/2024 CMP (MALE ) A/G ratio 1.0 ratio Not Available [facility] [address] [address], [place], [address], 11/22/2024 13:34:59 11/23/19 25 11/22/2024 CMP (MALE ) ALP phos 93.0 U/L 30.0-1 40.0 normal Not Available [facility] [address] [address], [place], [address], 11/22/2024 13:34:59 11/23/19 25 11/22/2024 CMP (MALE ) calcium 9.0 mg/dL 8.4-10 .5 Not Available [facility] [address] [facility] [address], [place], [address], 11/22/2024 13:34:59 11/23/19 25 11/22/2024 CMP (MALE ) sodium 139.0 mmol/ L 136.0- 145.0 Not Available [facility] [address] [facility] [address], [place], [address], 11/22/2024 13:34:59 11/23/19 25 11/22/2024 CMP (MALE ) potassium 4.2 mmol/ L 3.5-5. 1 Not Available [facility] [address] [facility] 1, [place], [address], 11/22/2024 13:34:59 11/23/1911/22/2024 CMP (MALE ) chloride 106.0 mmol/ L 98.0-1 10.0 normal Not Available [facility] [address] [facility] [address], [place], [address], 11/22/2024 13:34:59 11/23/1911/22/2024 CMP (MALE ) C02 25.0 mmol/ L 22.0-3 1.0 Not Available [facility] [address] [facility] 1, [place], [address], 11/22/2024 13:34:59 11/23/19 25 11/22/2024 CMP (MALE ) anion gap 8.0 calc Not Available [facility] [address] [facility] 1, [place], [address], 11/22/2024 13:34:59 11/23/1911/22/2024 CMP (MALE ) osmolality 293.7 calc Not Available [facility] [address] [facility] 1, [place], [address], 11/22/2024 13:34:59 Result Notes None recorded. Problems Name Problem SNOMED Code Status Onset Date Resolution Date Notes Provider Name and Address Organization Details Recorded Time CAT scan - NOS Completed 202111/01/2024 CT Scan; Head, normal, 2002.; 022 3:06PM by Fay Wu RN, Office Visit; Promote d; acuity set as *; CHIARA kirkpatrick [place] - [facility]CBrenda 14:13:21 Coronary arteriosc lerosis 40696698 Active [address] [facility]CBrenda 04/25/202 5 14:13:14 Cardiomyo abbi 32737791 Active 2022 CHIARA kirkpatrick, [facility] 5 14:13:14 Gastroeso phageal reflux disease 422771126 Active 2022 CHIARA kirkpatrick, [facility] 5 14:13:14 Benign prostatic hyperplas ia 702704993 Active 2022 CHIARA kirkpatrick, [facility] 5 14:13:14 Type 2 diabetes mellitus 97507349 Active 2022 CHIARA kirkpatrick, [facility] 5 14:13:14 Hyperlipi demia 08164456 Active 2022 CHIARA kirkpatrick, [facility] 14:13:14 Cerebrova scular accident 027695627 Active 2022 Marquez Ross MD [address] [place] [address], [address] , [facility] 5 15:00:33 Coronary atheroscl erosis 637528709 Active 2023 CHIARA kirkpatrick, [facility] 5 14:13:14 Diabetes mellitus 95986384 Active 2023 CHIARA kirkpatrick, [facility] 5 14:13:14 Chronic systolic heart failure 357394690 Active 2023 CHIARA kirkpatrick, [facility] 5 14:13:14 Osteoarth ritis of knee 905516173 Active 2023 CHIARA kirkpatrick, [facility] 14:13:14 Unsteady when walking 24365537 Active 2023 CHIARA BLOOD null, [facility] 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 22:11:09 Idiopathi c hypotensi on 455843829 Active 2024 SUMAN DALEYRIS null, [facility] 22:10:59 Abscess of buttock 23562306 Active 2024 Marquez Ross MD [address] [place] [address], [address], [facility] 14:55:09 Essential tremor 156926138 Active 2024 Marquez Ross MD [address] [place] [address], [address], [facility] 14:56:37 Problem Notes None recorded. Medical [...] Updated DateTime 11/01/2024 180.34 cm 29.3 kg/m2 53448.4 g 78 /min 128/62 mm[Hg] CHIARA BLOOD [facility], LBrendaBrenda 5 14:08:23 Date Recorded Body height Body mass index (BMI) Body weight Oxygen saturation Heart rate Systolic And Diastolic Provider Name and Address Organization Details Last Updated DateTime 05/16/202 5 180.34 cm 29.3 kg/m2 61511.4 g 88 % 69 /min 120/62 mm[Hg] [facility] 5 12:08:53 Date Recorded Body height Body mass index (BMI) Body weight Oxygen saturation Heart rate Systolic And Diastolic Provider Name and Address Organization Details Last Updated DateTime 180.34 cm 29.3 kg/m2 40200.4 g 89 % 87 /min 86/58 mm[Hg] [facility] 4 14:05:07 Date Recorded Body height Body mass index (BMI) Body weight Oxygen saturation Heart rate Systolic And Diastolic Provider Name and Address Organization Details Last Updated DateTime 5 180.34 cm 29.3 kg/m2 55097.4 g 88 % 55 /min 122/60 mm[Hg] [facility] 5 14:21:39 Date Recorded Body height Body mass index (BMI) Body weight Heart rate Systolic And Diastolic Provider Name and Address Organization Details Last Updated DateTime 05/28/2024 180.34 cm 29.3 kg/m2 62273.4 g 82 /min 92/58 mm[Hg] CHIARA SKAGGSSHAMIKAJUDITH [facility] 4 14:12:14 Social History None recorded. Functional Status Question Answer Note LastModified by Organizat ion Details LastModified Time Do you use any illicit or recreational drugs? No [email or web address] Information not available 12/07/2022 What is your level of alcohol consumption? None [email or web address] Information not available 12/07/2022 Mental Status None recorded. Family History Nothing Reported. Medical History Condition Response Other N Gout N Blood Diseases N Kidney Stones N Hyperthyroidism N Breast Cancer N Blood Transfusion N Lung Disease N Depression N COPD N Hypothyroidism N Defects or Inherited Disease [...] adjuvanted, quadrivalent, PF 06/13/[address] [facility] 12/07/2022 10:55:28 COVID-19, mRNA, LNP-S, PF, 100 mcg/0.5mL dose or 50 mcg/0.25mL dose 01/06/[address] [facility] 12/07/2022 10:55:28 COVID-19, mRNA, LNP-S, PF, 100 mcg/0.5mL dose or 50 mcg/0.25mL dose 02/04/[address] [facility] 12/07/2022 10:55:28 COVID-19, mRNA, LNP-S, bivalent, PF, 50 mcg/0.5 mL or 25mcg/0.25 mL dose 06/13/[address] [facility] 12/07/2022 10:55:28 Past Encounters Encounter ID Performer Location Encounter Start Date Encounter Closed Date Diagnosis/Indication Diagnosis SNOMED-CT Code Diagnosis ICD10 Code Diagnosis IMO Codes Diagnosis Note [id number] Marquez oRss MD [facility] ([facility]) [address] [place] [address] 12/07/2022 10:47:05 12/07/2022 13:10:10 Coronary arteriosclerosis 37357644 I25.10 s/p stent and feeling better. He is followed by Dr. Moreau. Cardiomyopathy 95105427 I42.9 Last EF was 30%. Gastroesop hageal reflux disease 308847925 K21.9 better with Pantoprazo le Benign pro static hyperplasia 739188095 N40.1 Type 2 rema betes mellitus 59270665 E11.9 [id number] Marquez Ross MD [facility] ([facility]) [address] [place], [place] [phone] 05/17/2023 13:50:54 05/17/2023 15:33:58 Cerebrovascular accident 925485870 I63.9 Cardiomyopathy 03828529 I42.9 Last EF was 30%. History of primary malignant neoplasm of kidney 685249516 Z85.528 He is following up with his urologist in [place] Dr. Agustin. [id number] Marquez Ross MD [facility] ([facility]) [address] [place] [address] 5 09/25/2023 14:22:26 09/25/2023 15:05:30 Diabetes mellitus 77527094 E13.42 History of cerebrovascular accident 127582840 Z86.73 Coronary atherosclerosis 545951080 I25.10 Cardiomyopathy 08892018 I42.9 Last EF was 30%. [id number] Marquez Ross MD [facility] ([facility]) [address] [place] [address] 01/26/2024 13:44:37 01/26/2024 14:21:04 Diabetes mellitus 45967440 E11.9 Benign pro static hyperplasia 198879173 N40.1 Coronary arteriosclerosis 03257181 I25.10 s/p stent and feeling better. He is followed by Dr. oMreau. Chronic sy stolic heart failure 444230634 I50.22 Continue Entresto [id number] Marquez Ross MD [facility] ([facility]) [address] [place] [phone] 5 05/28/2024 13:46:22 05/29/2024 14:30:39 Cerebrovascular accident 959103939 I63.9 Gastroesop hageal reflux disease 058356794 K21.9 better with Pantoprazo le Benign pro static hyperplasia 228675888 N40.1 Type 2 rema betes mellitus 25851308 E11.9 Chronic sy stolic heart failure 804009361 I50.22 Continue Entresto Coronary atherosclerosis 128287880 I25.10 Osteoarthr itis of knee 380907646 M17.9 Unsteady when walking 22 068441 R26.89 [id number] Marquez Ross MD [facility] ([facility]) [address] [place] [address] 11/01/2024 13:53:36 11/01/2024 14:39:09 Unsteady when walking 38511361 R26.89 stable Cerebrovas cular accident 991356476 I63.9 Osteoarthr itis of knee 059295267 M17.9 Type 2 rema betes mellitus 44652782 E11.9 Hyperlipidemia 91625570 E78.5 Chronic sy stolic heart failure 524967615 I50.22 Continue Entresto Coronary atherosclerosis 630025805 I25.10 Diabetes mellitus 488971 09 E11.9 Cardiomyopathy 53395110 I42.9 Last EF was 30%. Gastroesop hageal reflux disease 584020901 K21.9 better with Pantoprazo le Bilateral cortical age-related cataract eyes 3982283060 68503 H25.115 [id number] Edema 630336990 R60.9 [id number] Marquez Ross MD [facility] ([facility]) [address] [place] [address] 11/22/2024 11:33:24 11/25/2024 10:19:07 Idiopathic hypotension 455045971 I95.0 [id number] Cerebrovas cular accident 968447939 I63.9 Chronic sy stolic heart failure 990493893 I50.22 Continue Entresto Diabetes mellitus 111110 09 E11.9 stay off the Pioglitazo ne. Will try to get Farxiga. Impacted c erumen in right ear 3811926609 523016 H61.21 [id number] Dysuria 77045794 R30.0 [id number] Marquez Ross MD [facility] ([facility]) [address] [place] [phone] 5 04/16/2025 14:08:13 04/16/2025 15:20:28 Cerebrovascular accident 674287318 I63.9 stable. Idiopathic hypotension 786385327 I95.0 632734 Abscess of buttock 80273 003 L02.31 3029898 Essential tremor 8367708 09 G25.0 62540 Health Concerns Section Related Observation LastModified by Organization Detai ls LastModified Time None Recorded Concern Status LastModified by Organization Details LastModified Time None Recorded Advance Directives Directive None Recorded Payers Insurance Date Sequence Insurance Name Policy Number Policy Jason Covered Member ID Jason Member ID Guarantor Name 04/22/2025 1 [facility] (MEDICARE REPLACEMENT/A DVANTAGE - HMO) [id number] Diogenes Mustfaa [id number] Diogenes Mustafa 12/07/2022 1 MEDICARE B-[place]: WPS Diogenes Mustafa [id number] Diogenes Mustafa Notes Date Note Type Note [...] risk factors, patient reportsdiabetes. Marquez Ross MD [address] [place] [address], [phone], [facility] 01/26/2024 14:20:35 4 text/html Reflux/GERDReported by PatientHPIFor severity, patient reportsimproving. Marquez Ross MD [address] [place] [address], [phone], [facility] 05/28/2024 14:33:43 5 text/html DiabetesReported by PatientHPIFor associated symptoms, patient reportsdizzinessbut reportsno weight gain,no weight loss,no sweats, andno headaches. For self care, patient reportsmonitoring glucose __andseeing eye doctor regularly. HyperlipidemiaReported by PatientHPIFor adherence to treatment plan, patient reportstakes medications as prescribed. Marquez Ross MD [address] [place] [address], [phone], [facility] 11/01/2024 14:38:12 5 text/html Would like to discuss medications today. Marquez Ross MD [address] [place] [address], [phone], [facility] 11/22/2024 13:17:13 5 text/html Hypertension IM/FMReported [...] having some urinary incontinence. Marquez Ross MD [address] [place] [address], [phone], [facility] 04/16/2025 15:00:57
--- NOTE | 2025-06-27 16:32 | ECG_ITS ---
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
--- NOTE | 2025-06-27 16:33 | XRR_ITS ---
PROCEDURE INFORMATION: Exam: XR Chest Exam date and time: 06/27/2025 4:55 PM Age: 89 years old Clinical indication: Shortness of breath; Additional info: Short of breath TECHNIQUE: Imaging protocol: Radiologic exam of the chest. Views: 1 view. COMPARISON: CR XR chest 1V portable [id number] 11/19/2024 12:13 PM FINDINGS: Lungs: Unremarkable. No consolidation. Pleural spaces: Unremarkable. No pleural effusion. No pneumothorax. Heart/Mediastinum: Unremarkable. No cardiomegaly. Bones/joints: Unremarkable. XR/XR chest 1V portable [id number] IMPRESSION: No acute findings.
--- NOTE | 2025-06-27 16:34 | W.ED.GENADLT ---
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 Context: Patient is typically A/A/O, answering questions quickly, sharply. Today, he started having diarrhea this morning. Patient has not been able to eat consume any foods. Abdomen feels like it is swollen, although he is not having any lower extremity edema. He does have association of shortness of breath without fever. Family notes he has not made any urine today. Blood glucose EMS noted 384. On discussion with bedside, patient overall feels confused, although admits to shortness of breath, cough, sputum production of white production. He denied any fever, chills, sick contact. He denied any chest discomfort. LHC: 11/25/2022: Diagnostic Findings * Left Main has no significant disease. * Circumflex has no significant disease. OM1 has 60% stenosis.. * Proximal Left Anterior Descending: chronic total occlusion, KEVAN: 0 flow. * Right Coronary Artery is a small sized nondominant vessel with diffuse disease.. * Ramus: obstructive 70% stenosis, KEVAN: 3 flow. * Coronary angiography shows left dominance. PCI Status: Urgent PCI Indication: NSTE - ACS Interventional Findings * Ramus: 70% stenosis treated with a AB TREK 2.50X12 RX BALLOON, and MDT R ELLIOTT 2.75X18 CRISTINE. 0% residual stenosis, KEVAN: 3 flow. * PROCEDURE DETAIL: We engaged left main artery with XB 3.5 guide catheter. IV heparin was administered to maintain anticoagulation. After normalization, IFR wire was advanced to OM vessel. Nonischemic value of 0.93 was obtained. Medical therapy was decided. We then turned our attention to the ramus artery. iFR wire was advanced into distal ramus artery. iFR value of 0.84 was obtained that was significantly ischemic. We decided to proceed with PCI. Stenosis was predilated with a 2.5 x 12 mm semicompliant balloon. This was followed by placement of 2.75 x 18 mm resolute Elliott drug-eluting stent. At this time final angiogram was performed that showed excellent stent expansion, KEVAN-3 flow and no residual stenosis. Guidewire and guide catheter were removed. Patient left the Tie Man in a stable condition.. Conclusions 1. Severe multivessel CAD. Chronic total occlusion of LAD noted. Severe ramus artery stenosis confirmed with IFR. S/p successful revascularization with CRISTINE x1.. 2. Ramus was treated with a Balloon, and Drug Eluting Stent. Recommendations * Aggressive risk factor modification. * Dual antiplatelet therapy with aspirin and Plavix for at least 1 year. * High intensity statin therapy. * Outpatient cardiology follow-up in 2 weeks. Associated symptoms: Reports confusion and dyspnea; Deny chest pain, headache(s), nausea, rash or vomiting Related Data Home Medications ?Medication ?Instructions ?Recorded ?Confirmed atorvastatin 40 mg tablet 40 mg PO QPM 11/19/24 11/28/24 clopidogrel 75 mg tablet 75 mg PO DAILY 11/19/24 11/28/24 furosemide 40 mg tablet 40 mg PO DAILY 11/19/24 11/28/24 pantoprazole 40 mg tablet,delayed 40 mg PO DAILY 11/19/24 11/28/24 release tamsulosin 0.4 mg capsule 0.4 mg PO DAILY 11/19/24 11/28/24 Held on 11/20/24. Instructions: orthostatic hypotension sacubitril 24 mg-valsartan 26 mg 0.5 tab PO BID 11/29/24 tablet (Entresto) Previous Rx's ?Medication ?Instructions ?Recorded aspirin 81 mg tablet,delayed 81 mg PO DAILY #30 tabs 11/26/22 release dapagliflozin propanediol 5 mg 5 mg PO DAILY #30 tabs 11/20/24 tablet (Farxiga) gabapentin 600 mg tablet 300 mg (1/2 x 600 mg) PO BID #1 tab 11/20/24 Allergies Allergy/AdvReac Type Severity Reaction Status Date / Time No Known Allergies Allergy Verified 01/27/25 15:34 Review of Systems General: Reports: 10 or more systems reviewed and unremarkable except in HPI and below Const: Denies: fever(s) or chills Eyes: Denies: change in vision or blurry vision ENMT: Denies: throat pain or mouth pain Card: Denies: chest pain Resp: Reports: dyspnea and productive cough (clear production) GI: Denies: abdominal pain, nausea or vomiting : Denies: dysuria, urinary frequency or urinary urgency Musc: Denies: neck pain or back pain Skin/Breast: Denies: rash or pruritus Neuro: Reports: weakness in extremities, confusion and behavioral changes; Denies: headache(s), numbness in extremities, sensory changes, lack of coordination or difficulty walking Psych: Denies: anxiety or depression [facility] ED PFSH: Medical History (Updated 06/27/25 @ 20:30 by BOZENA Meléndez) Varicose veins of both lower extremities HTN (hypertension) BPH (benign prostatic hyperplasia) Surgical History History of left knee replacement Family History Mother , AT AGE 84 PANCREATIC CANCER Cancer Father , AT AGE 85 CHF/COLON CANCER Cancer CAD (coronary artery disease) Anesthesia complication Brother CAD (coronary artery disease) Other Diabetes Hyperlipidemia Denies family history of Clotting disorder Dementia Chronic kidney disease (CKD) Suicide Bleeding disorder Lung disease Stroke Social History Smoking and tobacco/nicotine status: never used tobacco/nicotine Alcohol intake: never Substance/Drug Use: never Housing: House Marital status: Current occupational status: retired Physical Exam Const: COMMON NORMALS: no acute distress, patient oriented x3 and alert GENERAL APPEARANCE: cooperative and comfortable ORIENTATION/CONSCIOUSNESS: Yes awake, Yes oriented to person, Yes oriented to place and Yes oriented to time HENMT: COMMON NORMALS: normocephalic, atraumatic and hearing grossly normal bilaterally HEAD & SCALP: normocephalic and atraumatic Neck/C-Spine: COMMON NORMALS: no meningeal signs Lymph: LYMPHATIC: no lymphadenopathy noted Chest: COMMONS NORMALS: normal inspection of the chest and normal palpation of entire chest wall Resp: COMMON NORMALS: No retractions and No use of accessory muscles EFFORT & INSPECTION: Yes tachypneic, No pursed lip breathing and Yes labored AUSCULTATION: crackles Laterality: right and posterior and diminished lung sounds bilateral Cardio: COMMON NORMALS: regular rate, regular rhythm and No murmurs present (Cardio) RATE: regular rate RHYTHM: regular rhythm GI: COMMON NORMALS: Soft to palpation and No hepatosplenomegaly present AUSCULTATION: Yes normoactive bowel sounds PALPATION: Yes Soft to palpation, No Tenderness to palpation present (GI), No Guarding due to palpation present (GI) and Yes No hepatosplenomegaly present : COMMON NORMALS: Yes no CVA tenderness BLADDER/KIDNEY EXAM: Yes no CVA tenderness Back/Pelvis: COMMON NORMALS: no CVA tenderness and thoracic and lumbar spine normal to inspection Extremity: COMMON NORMALS: normal to inspection, capillary refill normal, no clubbing, cyanosis or edema, no calf tenderness and no pedal edema Neuro: COMMON NORMALS: patient oriented x3 and no sensory deficits noted SENSORIUM/ORIENTATION: Yes alert, Yes oriented to person, Yes oriented to place and Yes oriented to time MENINGEAL SIGNS: Yes no meningeal signs SPEECH: speech normal MOTOR EXAM: 5/5 motor strength present throughout and Tremors during motor activity present resting tremor Course Reevaluation(s): Reevaluation #1: Patient still with shivers. Updated daughter Desirae and patient. Patient states he does feel a little better. Doxycycline and Rocephin infused. His oxygen saturation decreased to 88% on room air, placed on 2 L Reevaluation #2: Requesting gabapentin for night leg pain. Ordered. Consultations: Consultation #1: Dr. Kelly accepted Consultation #2: Hospitalist evaluated patient at 2019 and stated due to his urinary stent, now notable pyuria, patient will need to be sent to tertiary care that has urology available. Pyuria was not initially noted when calling hospitalist. Consultation #3: D/w [facility] transfer center/awaiting hospitalist Additional Consultation(s): Dr. Varner accepted admit at [facility] at 2058 Vital Signs: Vital signs: Vital Signs Temperature 98.0 F 06/27/25 18:51 Pulse Rate 88 06/27/25 22:00 Respiratory Rate 16 06/27/25 22:00 Blood Pressure 108/56 06/27/25 22:00 Pulse Oximetry 91 06/27/25 22:00 Oxygen Delivery Me thod Nasal Cannula 06/27/25 19:33 Oxygen Flow Rate 4.5 06/27/25 19:33 MDM - General Adult Medical Decision Making EMS gave fluid bolus x 1 L. 89-year-old gentleman with confusion today, lack of urinary output, diarrhea, shortness of breath. Chest x-ray is consistent with right lower lobe pneumonia. Procalcitonin is also subsequently mildly elevated at 0.97. Blood cultures are obtained. Doxycycline and Rocephin given. Insulin 10 units were given with blood glucose of 314 initially here. Repeat is pending. Troponin is flat. No chest pain per patient. CT does not show any acute issues however there is the small right suprasellar mass that was noted from previous CT as well. Suspect his confusion is secondary to metabolic encephalopathy associated with sepsis due to pneumonia. As noted, EMS gave 1 L of LR. His lactic acid is 1.9. He was not treated with additional fluid bolus due to his cardiomyopathy and chronic systolic heart failure with last EF of 45%. Blood pressure is stable. He does have rigors. His urine analysis is pending. He has been cultured, urine was sent to the lab, and then antibiotics infused with Rocephin 2 g to cover pneumonia, and doxycycline. Family was updated as well as patient. All their questions answered their satisfaction. His oxygen level did drop to 88% on room air while was in the room, and I placed him back on 2 L/min. Medical Records I reviewed the patient's medical records. Lab Data I reviewed the patient's lab results. 06/27/25 15:57 06/27/25 15:57 Radiology Impressions Chest X-Ray 06/27/25 16:33 IMPRESSION: No acute findings. Abdomen/Pelvis CT 06/27/25 17:05 IMPRESSION: 1. Right nephroureteral stent in place. Air seen in the urinary bladder in the right renal collecting system. Clinically correlate for recent catheterization. In the absence of catheterization, possibility of emphysematous cystitis may be considered. 2. Cholelithiasis. Questionable mild gallbladder wall thickening. This may be artifactual due to motion artifact. Clinically correlate for acute cholecystitis. Ultrasound could be obtained if clinically warranted. 3. Small amount fluid noted in the right paracolic gutter (nonspecific). COMMENTS: Consistent with the [employer]'s Incidental Findings Committee white paper (J Am Lea Radiol 2018): Any incidental renal lesion less than 1 cm or classified as too small to characterize, or any incidental cystic renal lesion characterized as simple-appearing, is likely benign. No follow-up imaging is recommended for these lesions per consensus recommendations based on imaging criteria. Head CT 06/27/25 17:05 IMPRESSION: No evidence of acute intracranial hemorrhage or midline shift. 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 Partial opacification of the left-sided mastoid air cells. Clinically correlate for mastoiditis. Laboratory Results WBC 12.96 10^3/uL (3.29-11.43) H 06/27/25 15:57 RBC 4.90 10^6/uL (3.85-5.65) 06/27/25 15:57 Hgb 15.20 g/dL (11.27-16.99) 06/27/25 15:57 Hct 45.8 % (37-53) 06/27/25 15:57 MCV 93.5 fl (82-101) 06/27/25 15:57 MCH 31.0 pg (27-33) 06/27/25 15:57 MCHC 33.2 g/dL (30-55) 06/27/25 15:57 RDW 13.6 % (12.1-15.1) 06/27/25 15:57 Plt Count 162 10^3/cmm (157-399) 06/27/25 15:57 MPV 10.7 fL (7.4-10.4) H 06/27/25 15:57 Neut % (Auto) 87.2 % 06/27/25 15:57 Lymph % (Auto) 7.5 % 06/27/25 15:57 Davison % (Auto) 4.6 % 06/27/25 15:57 Eos % (Auto) 0.0 % 06/27/25 15:57 Baso % (Auto) 0.2 % 06/27/25 15:57 Neut # (Auto) 11.30 10^3/uL (1.8-7.7) H 06/27/25 15:57 Lymph # (Auto) 1.0 10^3/uL (0.8-4.8) 06/27/25 15:57 Davison # (Auto) 0.6 10^3/uL (0.2-0.9) 06/27/25 15:57 Eos # (Auto) 0.0 10^3/uL (0.0-0.8) 06/27/25 15:57 Baso # (Auto) 0.0 10^3/uL (0.0-0.1) 06/27/25 15:57 Nucleated RBC % (auto) 0 % 06/27/25 15:57 Nucleated RBCs # 0.0 /100WBC 06/27/25 15:57 Specimen Type Arterial 06/27/25 16:50 Sample Site Radial, left 06/27/25 16:50 ABG pH 7.45 (7.35-7.45) 06/27/25 16:50 ABG pCO2 37.5 mmHg (35-45) 06/27/25 16:50 ABG pO2 74.5 mmHg (80.0-100.0) L 06/27/25 16:50 ABG PO2/FiO2 Ratio 219 06/27/25 16:50 ABG HCO3 26.0 mmol/L (22-26) 06/27/25 16:50 ABG O2 Saturation 96.1 06/27/25 16:50 ABG Base Excess 2.1 mmol/L (-2.0-2.0) H 06/27/25 16:50 Jesus Test Pos 06/27/25 16:50 A-a O2 Gradient 15.7 mmHg (5-10) H 06/27/25 16:50 Hematocrit 43.6 % (42-52) 06/27/25 16:50 Hgb O2 Saturation 94.6 % (95-100) L 06/27/25 16:50 Carboxyhemoglobin 1.5 %THgb (0.4-20.1) 06/27/25 16:50 Methemoglobin 0.0 % (0.4-1.5) L 06/27/25 16:50 Total Hemoglobin 14.2 g/dL (14-18) 06/27/25 16:50 Sodium 133.0 mmol/L (131-143) 06/27/25 16:50 Potassium 4.1 mmol/L (3.5-5.0) 06/27/25 16:50 Glucose 323.0 mg/dL (70-115) H 06/27/25 16:50 Ionized Calcium 1.1 mmol/L (1.1-1.4) 06/27/25 16:50 O2 Delivery Device Nc 06/27/25 16:50 O2 Liters/Min 3.5 % 06/27/25 16:50 FiO2 34.0 % 06/27/25 16:50 Economic Forecaster ID glc 06/27/25 16:50 Sodium 131 mmol/L (136-145) L 06/27/25 15:57 Potassium 4.7 mmol/L (3.5-5.1) 06/27/25 15:57 Chloride 91 mmol/L (98-107) L 06/27/25 15:57 Carbon Dioxide 28 mmol/L (22-29) 06/27/25 15:57 Anion Gap 16.7 (5-19) 06/27/25 15:57 BUN 21 mg/dL (8-23) 06/27/25 15:57 Creatinine 1.3 mg/dL (0.7-1.2) H 06/27/25 15:57 GFR Calculation Not Reportable 06/27/25 15:57 Glucose 314 mg/dL (65-115) H 06/27/25 15:57 POC Glucose 310 mg/dL (70-110) H 06/27/25 19:18 Calculated Osmolality 287 mOsm/kg (285-295) 06/27/25 15:57 Lactic Acid 1.9 mmol/L (0.5-2.2) 06/27/25 15:57 Calcium 9.0 mg/dL (8.5-10.5) 06/27/25 15:57 Total Bilirubin 2.0 mg/dL (0.15-1.2) H 06/27/25 15:57 AST 20 U/L (0-40) 06/27/25 15:57 ALT 11 U/L (0-41) 06/27/25 15:57 Alkaline Phosphatase 107 U/L (40-130) 06/27/25 15:57 Ammonia 23 umol/L (16-60) 06/27/25 16:49 Troponin T Baseline 37 ng/L (0-15) H 06/27/25 15:57 Troponin T 60 Minute 33.68 ng/L (0-15) H 06/27/25 16:49 Delta Troponin T -3.32 ABS# (0-10) L 06/27/25 16:49 NT-Pro-B Natriuret Pep 2936 pg/mL (0-450) H 06/27/25 15:57 Total Protein 7.0 g/dL (6.6-8.7) 06/27/25 15:57 Albumin 3.8 g/dL (3.5-5.2) 06/27/25 15:57 Globulin 3.2 g/dL (1.3-4.6) 06/27/25 15:57 Procalcitonin 0.97 ng/mL (0-0.5) H 06/27/25 15:57 Urine Color Yellow (Yellow) 06/27/25 18:21 Urine Appearance Turbid (CLEAR) A 06/27/25 18:21 Urine pH 6.0 (5-7) 06/27/25 18:21 Ur Specific [place] 1.025 (1.005-1.030) 06/27/25 18:21 Urine Protein 2+ (Negative) A 06/27/25 18:21 Urine Glucose (UA) 3+ (Normal) H 06/27/25 18:21 Urine Ketones Trace (Negative) 06/27/25 18:21 Urine Blood 3+ (Negative) A 06/27/25 18:21 Urine Nitrate Negative (Negative) 06/27/25 18:21 Urine Bilirubin Negative (Negative) 06/27/25 18:21 Urine Urobilinogen 1.0 mg/dL (Negative) 06/27/25 18:21 Ur Leukocyte Esterase 1+ (Negative) A 06/27/25 18:21 Urine RBC 51-100 /hpf (0-2) H 06/27/25 18:21 Urine WBC >100 /hpf (0-5) H 06/27/25 18:21 Ur Squamous Epith Cells 0-5 /hpf (0-5) 06/27/25 18:21 Amorphous Sediment Not Reportable 06/27/25 18:21 Urine Bacteria 4+ /hpf (NONE) H 06/27/25 18:21 Hyaline Casts 16.93 /lpf 06/27/25 18:21 Urine Opiates Screen Negative ng/mL (Negative) 06/27/25 18:21 Ur Barbiturates Screen Negative ng/mL (Negative) 06/27/25 18:21 Ur Phencyclidine Scrn Negative ng/mL (Negative) 06/27/25 18:21 Ur Amphetamines Screen Negative ng/mL (Negative) 06/27/25 18:21 U Benzodiazepines Scrn Negative ng/mL (Negative) 06/27/25 18:21 Urine Cocaine Screen Negative ng/mL (Negative) 06/27/25 18:21 U Marijuana (THC) Screen Negative ng/mL (Negative) 06/27/25 18:21 Influenza A (PCR) Negative (Negative) 06/27/25 16:51 Influenza Type B (PCR) Negative (Negative) 06/27/25 16:51 RSV (PCR) Negative (Negative) 06/27/25 16:51 SARS-CoV-2 (PCR) Negative (Negative) 06/27/25 16:51 All radiology interpretation(s) finalized by discharge EKG Data EKG 1: Interpretation: Left bundle branch block no ST segment elevation Computer generated interpretation: Chest X-Ray 06/27/25 16:33 IMPRESSION: No acute findings. Abdomen/Pelvis CT 06/27/25 17:05 IMPRESSION: 1. Right nephroureteral stent in place. Air seen in the urinary bladder in the right renal collecting system. Clinically correlate for recent catheterization. In the absence of catheterization, possibility of emphysematous cystitis may be considered. 2. Cholelithiasis. Questionable mild gallbladder wall thickening. This may be artifactual due to motion artifact. Clinically correlate for acute cholecystitis. Ultrasound could be obtained if clinically warranted. 3. Small amount fluid noted in the right paracolic gutter (nonspecific). COMMENTS: Consistent with the [employer]'s Incidental Findings Committee white paper (J Am Lea Radiol 2018): Any incidental renal lesion less than 1 cm or classified as too small to characterize, or any incidental cystic renal lesion characterized as simple-appearing, is likely benign. No follow-up imaging is recommended for these lesions per consensus recommendations based on imaging criteria. Head CT 06/27/25 17:05 IMPRESSION: No evidence of acute intracranial hemorrhage or midline shift. 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 Partial opacification of the left-sided mastoid air cells. Clinically correlate for mastoiditis. EKG 2: Interpretation: Left bundle branch block, rate of 110 Computer generated interpretation: Chest X-Ray 06/27/25 16:33 IMPRESSION: No acute findings. Abdomen/Pelvis CT 06/27/25 17:05 IMPRESSION: 1. Right nephroureteral stent in place. Air seen in the urinary bladder in the right renal collecting system. Clinically correlate for recent catheterization. In the absence of catheterization, possibility of emphysematous cystitis may be considered. 2. Cholelithiasis. Questionable mild gallbladder wall thickening. This may be artifactual due to motion artifact. Clinically correlate for acute cholecystitis. Ultrasound could be obtained if clinically warranted. 3. Small amount fluid noted in the right paracolic gutter (nonspecific). COMMENTS: Consistent with the [employer]'s Incidental Findings Committee white paper (J Am Lae Radiol 2018): Any incidental renal lesion less than 1 cm or classified as too small to characterize, or any incidental cystic renal lesion characterized as simple-appearing, is likely benign. No follow-up imaging is recommended for these lesions per consensus recommendations based on imaging criteria. Head CT 06/27/25 17:05 IMPRESSION: No evidence of acute intracranial hemorrhage or midline shift. 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 Partial opacification of the left-sided mastoid air cells. Clinically correlate for mastoiditis. Discharge Plan Discharge Patient Disposition: Xfer Short-Term Hosp Clinical Impression: Metabolic encephalopathy, Elevated bilirubin, H/O left bundle branch block, Chronic systolic (congestive) heart failure, Pyuria Pneumonia Qualifiers: Pneumonia type: due to unspecified organism Laterality: right Lung location: lower lobe of lung Qualified Code(s): J18.9 - Pneumonia, unspecified organism Sepsis Qualifiers: Sepsis type: sepsis due to unspecified organism Sepsis acute organ dysfunction status: with acute organ dysfunction Severe sepsis acute organ dysfunction type: encephalopathy Severe sepsis shock status: without septic shock Qualified Code(s): A41.9 - Sepsis, unspecified organism Diabetes mellitus type 2, uncontrolled Qualifiers: Glycemic state: with hyperglycemia Qualified Code(s): E11.65 - Type 2 diabetes mellitus with hyperglycemia Condition: Stable Referrals: Marquez Ross MD [Primary Care Provider, [facility]] Discharge Diet: Usual diet Discharge Activity: Resume usual activity Patient Instructions: Abdominal Pain (ED) Print Language: Slovenian Coding Level of Care Code ED Furniture Assembler And Installer for Sofiya Gary
--- NOTE | 2025-06-27 16:51 | PC.NURSE ---
patient arrived via EMS answered orientation questions slowly but correctly, family reports he has been lethargic and unable to answer direct questions all day today, they report he is normally strong and independent and this is a sharp change. pt appears short of breathe lungs sound clear, pt alert. RT in with pt getting ABG now
[2025-06-27 16:59] LABS: Hematocrit 45.8 % (37-53); Hemoglobin 15.20 g/dL (11.27-16.99); Mean Corpuscular HGB Conc 33.2 g/dL (30-55); Mean Corpuscular Hemoglobin 31.0 pg (27-33); Mean Corpuscular Volume 93.5 fl (82-101); Nucleated Red Blood Cells % 0 %; Platelet Count 162 10^3/cmm (157-399); Red Blood Count 4.90 10^6/uL (3.85-5.65); White Blood Count 12.96 10^3/uL (3.29-11.43)
[2025-06-27 17:02] LABS: ABG PCO2 37.5 mmHg (35-45); ABG PH Result 7.45 (7.35-7.45); Alveolar-Arterial Oxygen Gradi 15.7 mmHg (5-10); Arterial Blood Gas Hematocrit 43.6 % (42-52); Blood Gas Allen Test Pos; Blood Gas LPM 3.5 %; Blood Gas Operator Identificat glc; Blood Gas Sample Site Radial, left; Blood Gas Sample Type Arterial; Carboxyhemoglobin 1.5 %THgb (0.4-20.1); Glucose Level-ABG 323.0 mg/dL (70-115); HCO3 ABG 26.0 mmol/L (22-26); Ionized Calcium Level - ABG 1.1 mmol/L (1.1-1.4); Methemoglobin 0.0 % (0.4-1.5); Oxygen Saturation ABG 96.1; PO2 ABG 74.5 mmHg (80.0-100.0); PO2 FiO2 Ratio Arterial Blood 219; Potassium Level - ABG 4.1 mmol/L (3.5-5.0); Sodium Level - ABG 133.0 mmol/L (131-143)
--- NOTE | 2025-06-27 17:05 | CTR_ITS ---
PROCEDURE INFORMATION: Exam: CT Head Without Contrast Exam date and time: 06/27/2025 5:15 PM Age: 89 years old Clinical indication: Altered mental status/memory loss; Additional info: Confusion, metabolic encephalopathy TECHNIQUE: Imaging protocol: Computed tomography of the head without contrast. Radiation optimization: All CT scans at this facility use at least one of these dose optimization techniques: automated exposure control; mA and/or kV adjustment per patient size (includes targeted exams where dose is matched to clinical indication); or iterative reconstruction. COMPARISON: MR head wo/w con [id number] 04/26/2023 1:02 PM RADIATION DOSE METRICS: Total DLP (mGy-cm): 1150.48 FINDINGS: Brain: No evidence of acute intracranial hemorrhage or midline shift. Age-related cortical volume loss. Mild periventricular and subcortical areas of low attenuation suggestive of chronic microvascular ischemic changes. Right suprasellar mass is again seen measuring 1.5 x 1.2 cm as reported on 04/26/2023 MRI. Cerebral ventricles: Prominence of the lateral ventricles is unchanged. Paranasal sinuses: Partial opacification of the left ethmoid air cells. Clinically correlate for mastoiditis. Mastoid air cells: See Paranasal sinuses finding. Bones: Unremarkable. No acute fracture. Soft tissues: 2.3 x 1.5 cm soft tissue nodule within the superficial soft tissue of the right occipital scalp is unchanged likely representing a sebaceous cyst. Vasculature: Atherosclerotic calcification of the cavernous carotids noted. CT/CT head wo con* [id number] IMPRESSION: No evidence of acute intracranial hemorrhage or midline shift. 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 Partial opacification of the left-sided mastoid air cells. Clinically correlate for mastoiditis.
--- NOTE | 2025-06-27 17:05 | CTR_ITS ---
PROCEDURE INFORMATION: Exam: CT Abdomen And Pelvis With Contrast Exam date and time: 06/27/2025 5:15 PM Age: 89 years old Clinical indication: Abdominal pain; Generalized TECHNIQUE: Imaging protocol: Computed tomography of the abdomen and pelvis with contrast. Radiation optimization: All CT scans at this facility use at least one of these dose optimization techniques: automated exposure control; mA and/or kV adjustment per patient size (includes targeted exams where dose is matched to clinical indication); or iterative reconstruction. Contrast material: OMNIPAQUE 350; Contrast volume: 100 ml; Contrast route: INTRAVENOUS (IV); COMPARISON: CT abdomen pelvis wo con [id number] 11/19/2024 4:03 PM RADIATION DOSE METRICS: Total DLP (mGy-cm): 2098.56 FINDINGS: Lungs: Limited evaluation of the lower thorax demonstrates subsegmental atelectasis in the posterior dependent aspect of lower lobes. Liver: Normal. No mass. Gallbladder and biliary ducts: Gallstones noted. Questionable mild gallbladder wall thickening. Clinically correlate for acute cholecystitis. Pancreas: Pancreas is unremarkable. Spleen: Spleen is normal in size. Adrenal glands: Small left adrenal gland nodule is stable. Right adrenal gland is unremarkable. Kidneys and ureters: Both kidneys enhance symmetrically. No hydronephrosis. 1 cm focus of low attenuation in the left mid kidney likely represents a small cyst. Right-sided nephroureteral stent is present. Air is seen within the urinary bladder and the right renal pelvis and ureter. Clinically correlate for recent catheterization. Urinary bladder diverticula is seen with air within them. Stomach and bowel: Diverticulosis coli. No evidence of acute diverticulitis. No ascites. Trace fluid noted in the right paracolic gutter. Appendix: No evidence of appendicitis. Intraperitoneal space: See Stomach and bowel finding. Vasculature: No evidence of abdominal aortic aneurysm. Lymph nodes: Unremarkable. No enlarged lymph nodes. Urinary bladder: See Kidneys and ureters finding. Reproductive: Unremarkable as visualized. Bones/joints: Degenerative changes of thoracic and lumbar spine seen. No acute fracture. Soft tissues: Unremarkable. Other findings: Examination is limited due to motion artifact. CT/CT abdomen pelvis w con* [id number] IMPRESSION: 1. Right nephroureteral stent in place. Air seen in the urinary bladder in the right renal collecting system. Clinically correlate for recent catheterization. In the absence of catheterization, possibility of emphysematous cystitis may be considered. 2. Cholelithiasis. Questionable mild gallbladder wall thickening. This may be artifactual due to motion artifact. Clinically correlate for acute cholecystitis. Ultrasound could be obtained if clinically warranted. 3. Small amount fluid noted in the right paracolic gutter (nonspecific). COMMENTS: Consistent with the [employer]'s Incidental Findings Committee white paper (J Am Lea Radiol 2018): Any incidental renal lesion less than 1 cm or classified as too small to characterize, or any incidental cystic renal lesion characterized as simple-appearing, is likely benign. No follow-up imaging is recommended for these lesions per consensus recommendations based on imaging criteria.
[2025-06-27 17:21] LABS: Lactic Sepsis W/Reflex 1.9 mmol/L (0.5-2.2)
[2025-06-27 17:22] LABS: Troponin(5th) Baseline 37 ng/L (0-15)
[2025-06-27 17:32] LABS: NT Pro B Type Natriuretic Pept 2936 pg/mL (0-450); Procalcitonin 0.97 ng/mL (0-0.5)
[2025-06-27 17:39] LABS: Respiratory Syncytial Virus Ce NEGATIVE (Negative); SARS-CoV-2 PCR NEGATIVE (Negative)
[2025-06-27 17:41] LABS: Ammonia 23 umol/L (16-60)
[2025-06-27 17:43] LABS: Alanine Aminotransferase 11 U/L (0-41); Albumin Level 3.8 g/dL (3.5-5.2); Alkaline Phosphatase 107 U/L (40-130); Anion Gap 16.7 (5-19); Aspartate Amino Transferase 20 U/L (0-40); Blood Urea Nitrogen 21 mg/dL (8-23); Calcium 9.0 mg/dL (8.5-10.5); Carbon Dioxide 28 mmol/L (22-29); Chloride 91 mmol/L (98-107); Globulin 3.2 g/dL (1.3-4.6); Glucose 314 mg/dL (65-115); Osmolality Calculated 287 mOsm/kg (285-295); Potassium 4.7 mmol/L (3.5-5.1); Sodium 131 mmol/L (136-145); Total Protein 7.0 g/dL (6.6-8.7)
[2025-06-27] MEDS: insulin regular-human 100 units/1 mL 10 UNIT IVP (17:46)
--- NOTE | 2025-06-27 17:57 | ECG_ITS ---
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
[2025-06-27] MEDS: doxycycline 100 MG in sodium chloride 0.9% (plus) 100 ML IV (18:27)
[2025-06-27] MEDS: cefTRIAXone 2,000 mg SDV 2000 MG IVP (18:27)
[2025-06-27 18:41] LABS: PCP Screen Urine Negative (Negative)
[2025-06-27 19:03] LABS: Glucose Urine UA 3+ (Normal); Nitrate Urine Negative (Negative); Specific Gravity, Urine 1.025 (1.005-1.030)
[2025-06-27 19:08] LABS: Add Urine Microscopic? YES; Universal Test for UA Present (0)
--- NOTE | 2025-06-27 19:30 | PC.NURSE ---
patient O2 saturation dropped to 86% with good waveform on 2L via NC Oxygen increased to 4.5 L via NC will inform provider KRISH, on-coming nurse Johnna blake
--- NOTE | 2025-06-28 03:11 | PM.CONSULT ---
Providers/Reason For Consult Consulting Physician/Specialty*: Andrez Sharma MD Hospitalist Reason for Consult*: AMS hypoxemia Requesting Physician: Nessa SEALS Primary Care Provider: Marquez Ross MD History of Present Illness History of Present Illness Diogenes Mustafa is a 89 year old male placed at [facility] in [place] about 4 years ago. He is accompanied by his daughter Desirae. She states she is his primary caregiver. Patient has had lethargy and altered mental status last 2 days. Patient reports some abdominal discomfort. 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 Review of Systems Narrative: General Positive for lethargy fatigue confusion also has chills Cardiovascular no chest pain or palpitations Respiratory some cough shortness of breath Medications/Allergies Home Medications ?Medication ?Instructions ?Recorded ?Confirmed ?Last Taken ?Type aspirin 81 mg tablet,delayed 81 mg PO DAILY #30 tabs 11/26/22 11/28/24 11/19/24 Rx release atorvastatin 40 mg tablet 40 mg PO QPM 11/19/24 11/28/24 11/18/24 History clopidogrel 75 mg tablet 75 mg PO DAILY 11/19/24 11/28/24 11/19/24 History furosemide 40 mg tablet 40 mg PO DAILY 11/19/24 11/28/24 11/19/24 History pantoprazole 40 mg tablet,delayed 40 mg PO DAILY 11/19/24 11/28/24 11/19/24 History release tamsulosin 0.4 mg capsule 0.4 mg PO DAILY 11/19/24 11/28/24 11/19/24 History Held on 11/20/24. Instructions: orthostatic hypotension dapagliflozin propanediol 5 mg 5 mg PO DAILY #30 tabs 11/20/24 11/28/24 Unknown Rx tablet (Farxiga) gabapentin 600 mg tablet 300 mg (1/2 x 600 mg) PO BID #1 tab 11/20/24 11/28/24 11/19/24 Rx sacubitril 24 mg-valsartan 26 mg 0.5 tab PO BID 11/29/24 Unknown History tablet (Entresto) Allergies Allergy/AdvReac Type Severity Reaction Status Date / Time No Known Allergies Allergy Verified 01/27/25 15:34 PFSH Acute PFSH: Medical History (Updated 06/28/25 @ 03:21 by Andrez Sharma MD) Varicose veins of both lower extremities HTN (hypertension) BPH (benign prostatic hyperplasia) Surgical History History of left knee replacement Family History Mother , AT AGE 84 PANCREATIC CANCER Cancer Father , AT AGE 85 CHF/COLON CANCER Cancer CAD (coronary artery disease) Anesthesia complication Brother CAD (coronary artery disease) Other Diabetes Hyperlipidemia Denies family history of Clotting disorder Dementia Chronic kidney disease (CKD) Suicide Bleeding disorder Lung disease Stroke Social History Smoking and tobacco/nicotine status: never used tobacco/nicotine Alcohol intake: never Substance/Drug Use: never Housing: House Marital status: Current occupational status: retired Vitals/I&O/Wt Last Vital Signs Temp 98.0 F 06/27/25 18:51 Pulse 89 06/27/25 23:05 Resp 16 06/27/25 23:05 BP 101/60 06/27/25 23:05 Pulse Ox 91 06/27/25 23:05 O2 Del Method Nasal Cannula 06/27/25 19:33 O2 Flow Rate 4.5 06/27/25 19:33 06/27/25 06/27/25 06/28/25 14:59 22:59 06:59 Intake Total 100 / 100 Balance 100 / 100 Weight last 48 hrs Weight 95.254 kg Physical Exam Narrative: General well-developed well-nourished male in no acute cardiopulmonary distress he is on oxygen Patient is lethargic but answers some questions his daughter is helping him. CV regular rate and rhythm Lungs clear to auscultation bilaterally Abdomen mildly distended no rebound minimally tender Right flank minimally tender patient reports that his quite painful to palpation and percussion but he only looks moderately painful with percussion Data 06/27/25 15:57 06/27/25 15:57 Micro: Microbiology 06/27/25 16:50 Blood Culture - Preliminary Blood SPECIMEN COLLECTED 06/27/25 16:49 Blood Culture - Preliminary Blood SPECIMEN COLLECTED A&P Assessment and plan 1. Urinary tract infection: Mild right flank tenderness turbid urine with greater than 100 white cells and 51-100 red cells 4+ bacteria. He has not had previous resistant organisms. Last urinalysis 11/19/2024 showed UTI but less than 5000 superficial drew. 2. Ureteral stent present: Patient with retained stent from 4 years ago 3. Hydroureter on right: Patient with hydro ureter and also air around the stent and in the ureter. This is suspicious for gas-forming organism would cover for such and refer the patient to urology for inpatient evaluation treatment and stent removal 4. Hypoxemia: Chest x-ray showed no obvious infiltrate. He is requiring oxygen this may be on this basis of atelectasis or early sepsis Plan: Patient is declined for admission as we do not have a urologist to it address hydroureter with air and UTI with retained stone right ureteral stent PDMP PDMP Reviewed: Not Reviewed Coding Level of Care Code Acute Code for Chg Fwd Diagnoses Urinary tract infection N39.0 Ureteral stent present Z96.0 Hydroureter on right N13.4 Hypoxemia R09.02
== END 2025-06-27 23:06 | disposition short-term general hospital (02) ==
PROVIDERS: Emergency Provider Physician Assistant; PCP Family Medicine
DX: A41.9 Sepsis, unspecified organism (principal); R65.20 Severe sepsis without septic shock; E11.65 Type 2 diabetes mellitus with hyperglycemia; J18.9 Pneumonia, unspecified organism; G93.41 Metabolic encephalopathy; E80.7 Disorder of bilirubin metabolism, unspecified; I44.7 Left bundle-branch block, unspecified; R82.81 Pyuria; I11.0 Hypertensive heart disease with heart failure; I50.22 Chronic systolic (congestive) heart failure; I25.10 Atherosclerotic heart disease of native coronary artery without angina pectoris; Z85.54 Personal history of malignant neoplasm of ureter; Z11.52 Encounter for screening for COVID-19; Z96.0 Presence of urogenital implants; K80.20 Calculus of gallbladder without cholecystitis without obstruction
CPT/HCPCS: 36415; 36416; 36600; 70450; 71045; 74177; 80051; 80053; 80306; 81001; 82140; 82330; 82805; 82962; 83605; 83880; 84145; 84484; 85025; 87040; 87077; 87086; 87150; 87186; 87205; 87637; 93005; 96365; 96366; 96375; 99285; J0696; J1815; J3490; J7120; J9999